=== PATIENT | male | born 1950 | race Caucasian/White ===

== ENCOUNTER 2016-05-13 20:35 | Inpatient (IN) | payer MEDICARE, OTHER ==
[2016-05-13] MEDS ORDERED: PANTOPRAZOLE 40 MG/10 ML VIAL IVP STA (21:08)
[2016-05-13] MEDS ORDERED: SODIUM CHLORIDE 0.9% 500 ML IV STA (21:08)
--- NOTE | 2016-05-13 21:13 | ED ---
General Adult HPI - General Chief complaint: Weakness Stated complaint: GI bleed Time Seen by Provider: 05/13/16 20:55 Source: patient, RN notes reviewed Mode of arrival: ambulatory Limitations: no limitations - History of Present Illness Initial comments: This is a 66-year-old male who presents to the emergency department complaining of weakness and fatigue which is increased over the last 5 days. Patient went to see his primary medical care doctor and they did a rectal exam on him and found him to be quiet positive. She is on Xarelto because he had a stent placed in his heart. Patient also has had a stroke in the past. Patient states she's not had any chest pain denies difficult to breathing but isn't short of breath on a regular basis especially if he exerts himself. Patient denies any recent fever chills or cough. Patient denies lightheadedness or dizziness. Patient denies headache patient denies numbness weakness. Patient states he has some lower abdominal cramping occasionally but no pain currently. Patient denies any vomiting or diarrhea. - Related Data Home Medications Medication Instructions Recorded Confirmed Acetaminophen-Codeine 300-30mg 1 tab PO BID PRN 07/09/14 05/13/16 [Tylenol w/codeine #3] Atenolol 100 mg PO DAILY 07/09/14 05/13/16 Ergocalciferol (Vitamin D2) 50,000 unit PO LUCAS 07/09/14 05/13/16 [Drisdol] Lisinopril 40 mg PO DAILY 07/09/14 05/13/16 Rivaroxaban [Xarelto] 20 mg PO W/SUPPER 07/09/14 05/13/16 Sildenafil Citrate [Viagra] 100 mg PO DAILY PRN 07/09/14 05/13/16 Topiramate 150 mg PO BID 07/09/14 05/13/16 metFORMIN HCL [Glucophage] 850 mg PO BID 07/09/14 05/13/16 Atorvastatin [Lipitor] 40 mg PO HS 05/13/16 05/13/16 Clopidogrel [Plavix] 75 mg PO QAM 05/13/16 05/13/16 Hydrochlorothiazide 12.5 mg PO DAILY 05/13/16 05/13/16 Previous Rx's Medication Instructions Recorded Nitroglycerin Sl Tabs [Nitrostat] 0.4 mg SUBLINGUAL Q5M PRN #25 tab 07/11/14 Allergies Allergy/AdvReac Type Severity Reaction Status Date / Time No Known Allergies Allergy Verified 05/13/16 21:26 Review of Systems ROS Statement: Those systems with pertinent positive or pertinent negative responses have been documented in the HPI. ROS Other: All systems not noted in ROS Statement are negative. Past Medical History Past Medical History: Atrial Fibrillation, CVA/TIA, Diabetes Mellitus, Hypertension, Osteoarthritis (OA), Seizure Disorder, Sleep Apnea/CPAP/BIPAP Additional Past Medical History / Comment(s): APHASIA SINCE STROKE IN , DDD, DJD HEELS SPURS, DRY SKIN,SHORT TERM MEMORY LOSS, FX NOSE AND CHEECK-BONE History of Any Multi-Drug Resistant Organisms: None Reported Past Surgical History: Heart Catheterization, Heart Catheterization With Stent Additional Past Surgical History / Comment(s): COLONSOCOPY REMOVED 1 BENIGN POLYP, RHINOPLASTY,, TORN MENISCUS ELDA KNEES, RT KNEE ARTHROSCOPY, LT SHOULDER AC JOINT Additional Past Anesthesia/Blood Transfusion Reaction / Comment(s): CLAUSTERPHOBIA Date of Last Stent Placement:: 07-10-14 Past Psychological History: No Psychological Hx Reported Additional Psychological History / Comment(s): TO START SPEECH THERAPY 07-31-14 AT [place], HAS HEARING LOSS, APHASIA Smoking Status: Former smoker Past Alcohol Use History: None Reported Additional Past Alcohol Use History / Comment(s): STARTED SMOKING AT AGE 14 QUIT 1977 SMOKED 3 PPD. Past Drug Use History: None Reported - Past Family History Father Family Medical History: Congestive Heart Failure (CHF), COPD Additional Family Medical History / Comment(s): EMPHYSEMA Mother Family Medical History: AFIB, COPD, Coronary Artery Disease (CAD), Myocardial Infarction ([place]) Additional Family Medical History / Comment(s): HEAVY SMOKER, HEART STENTS. General Exam - General Exam Comments Initial Comments: GENERAL: Patient is well-developed and well-nourished. Patient is nontoxic and well- hydrated and is in no acute distress. ENT: Neck is soft and supple. No significant lymphadenopathy is noted. Oropharynx is clear. Moist mucous membranes. Neck has full range of motion without eliciting any pain. EYES: The sclera were anicteric and conjunctiva were pink and moist. Extraocular movements were intact and pupils were equal round and reactive to light. Eyelids were unremarkable. PULMONARY: Unlabored respirations. Good breath sounds bilaterally. No audible rales rhonchi or wheezing was noted. CARDIOVASCULAR: Patient's heart rate is irregular ABDOMEN: Soft and nontender with normal bowel sounds. No palpable organomegaly was noted. There is no palpable pulsatile mass. SKIN: Patient's skin is slightly pale NEUROLOGIC: Patient is alert and oriented x3. Cranial nerves II through XII are grossly intact. Motor and sensory are also intact. Normal speech, volume and content. Symmetrical smile. MUSCULOSKELETAL: Normal extremities with adequate strength and full range of motion. LYMPHATICS: No significant lymphadenopathy is noted PSYCHIATRIC: Normal psychiatric evaluation. Normal interpersonal interactions appears functionally intact in deals appropriately with others. No signs of depression. No signs of anxiety. Limitations: no limitations Course Vital Signs 05/13/16 05/13/16 05/13/16 20:51 21:07 21:15 Temperature 97.6 F Pulse Rate 61 79 84 Respiratory 18 18 18 Rate Blood Pressure 107/62 114/59 115/58 O2 Sat by Pulse 96 98 98 Oximetry 05/13/16 05/13/16 05/13/16 22:08 22:45 23:02 Temperature Pulse Rate 84 94 84 Respiratory 18 18 18 Rate Blood Pressure 90/57 83/53 100/60 O2 Sat by Pulse 98 99 98 Oximetry Medical Decision Making - Medical Decision Making EKG shows atrial fibrillation at 95 bpm QRS is 98 QT interval 324 QTC is 47. Patient's EKG shows no ST segment elevation or depression or T-wave abdomen is noted. Patient's chest x-ray shows no acute abnormality. Patient's blood pressure dipped a little while in the emergency department gave the patient a liter of fluid and the patient's systolic blood pressure came back up. Patient states he did not eat anything but a bolus early this morning and he states he wasn't drinking any fluids today. - Lab Data Result diagrams: 05/13/16 21:10 05/13/16 21:10 Lab Results 05/13/16 05/13/16 05/13/16 Range/Units 21:10 21:10 21:10 WBC 11.1 H (3.8-10.6) k/uL RBC 5.19 (4.30-5.90) m/uL Hgb 15.6 (13.0-17.5) gm/dL Hct 49.7 (39.0-53.0) % MCV 95.7 (80.0-100.0) fL MCH 30.1 (25.0-35.0) pg MCHC 31.4 (31.0-37.0) g/dL RDW 13.3 (11.5-15.5) % Plt Count 228 (150-450) k/uL Neutrophils % 62 % Lymphocytes % 27 % Monocytes % 7 % Eosinophils % 1 % Basophils % 1 % Neutrophils # 6.8 (1.3-7.7) k/uL Lymphocytes # 3.0 (1.0-4.8) k/uL Monocytes # 0.8 (0-1.0) k/uL Eosinophils # 0.1 (0-0.7) k/uL Basophils # 0.1 (0-0.2) k/uL PT (9.0-12.0) sec INR (<1.1) APTT (22.0-30.0) sec Sodium 144 (137-145) mmol/L Potassium 4.4 (3.5-5.1) mmol/L Chloride 109 H (98-107) mmol/L Carbon Dioxide 21 L (22-30) mmol/L Anion Gap 14 mmol/L BUN 37 H (9-20) mg/dL Creatinine 1.40 H (0.66-1.25) mg/dL Est GFR (MDRD) Af Amer >60 (>60 ml/min/1.73 sqM) Est GFR (MDRD) Non-Af 50 (>60 ml/min/1.73 sqM) Glucose 70 L (74-99) mg/dL POC Glucose (mg/dL) (75-99) mg/dL POC Glu Gas Well Drilling Manager ID Calcium 9.4 (8.4-10.2) mg/dL Total Bilirubin 0.6 (0.2-1.3) mg/dL AST 21 (17-59) U/L ALT 27 (21-72) U/L Alkaline Phosphatase 62 (38-126) U/L Total Creatine Kinase 104 (55-170) U/L CK-MB (CK-2) 2.0 (0.0-2.4) ng/mL CK-MB (CK-2) Rel Index 1.9 Troponin I <0.012 (0.000-0.034) ng/mL NT-Pro-B Natriuret Pep pg/mL Total Protein 7.3 (6.3-8.2) g/dL Albumin 4.3 (3.5-5.0) g/dL Blood Type Blood Type Recheck Antibody Screen Spec Expiration Date 05/13/16 05/13/16 05/13/16 Range/Units 21:10 21:10 21:10 WBC (3.8-10.6) k/uL RBC (4.30-5.90) m/uL Hgb (13.0-17.5) gm/dL Hct (39.0-53.0) % MCV (80.0-100.0) fL MCH (25.0-35.0) pg MCHC (31.0-37.0) g/dL RDW (11.5-15.5) % Plt Count (150-450) k/uL Neutrophils % % Lymphocytes % % Monocytes % % Eosinophils % % Basophils % % Neutrophils # (1.3-7.7) k/uL Lymphocytes # (1.0-4.8) k/uL Monocytes # (0-1.0) k/uL Eosinophils # (0-0.7) k/uL Basophils # (0-0.2) k/uL PT 12.0 (9.0-12.0) sec INR 1.2 (<1.1) APTT 27.7 (22.0-30.0) sec Sodium (137-145) mmol/L Potassium (3.5-5.1) mmol/L Chloride (98-107) mmol/L Carbon Dioxide (22-30) mmol/L Anion Gap mmol/L BUN (9-20) mg/dL Creatinine (0.66-1.25) mg/dL Est GFR (MDRD) Af Amer (>60 ml/min/1.73 sqM) Est GFR (MDRD) Non-Af (>60 ml/min/1.73 sqM) Glucose (74-99) mg/dL POC Glucose (mg/dL) (75-99) mg/dL POC Glu Gas Well Drilling Manager ID Calcium (8.4-10.2) mg/dL Total Bilirubin (0.2-1.3) mg/dL AST (17-59) U/L ALT (21-72) U/L Alkaline Phosphatase (38-126) U/L Total Creatine Kinase (55-170) U/L CK-MB (CK-2) (0.0-2.4) ng/mL CK-MB (CK-2) Rel Index Troponin I (0.000-0.034) ng/mL NT-Pro-B Natriuret Pep 1480 pg/mL Total Protein (6.3-8.2) g/dL Albumin (3.5-5.0) g/dL Blood Type O Negative Blood Type Recheck No Antibody Screen NEGATIVE Spec Expiration Date 05/16/2016 - 230905/13/16 Range/Units 22:43 WBC (3.8-10.6) k/uL RBC (4.30-5.90) m/uL Hgb (13.0-17.5) gm/dL Hct (39.0-53.0) % MCV (80.0-100.0) fL MCH (25.0-35.0) pg MCHC (31.0-37.0) g/dL RDW (11.5-15.5) % Plt Count (150-450) k/uL Neutrophils % % Lymphocytes % % Monocytes % % Eosinophils % % Basophils % % Neutrophils # (1.3-7.7) k/uL Lymphocytes # (1.0-4.8) k/uL Monocytes # (0-1.0) k/uL Eosinophils # (0-0.7) k/uL Basophils # (0-0.2) k/uL PT (9.0-12.0) sec INR (<1.1) APTT (22.0-30.0) sec Sodium (137-145) mmol/L Potassium (3.5-5.1) mmol/L Chloride (98-107) mmol/L Carbon Dioxide (22-30) mmol/L Anion Gap mmol/L BUN (9-20) mg/dL Creatinine (0.66-1.25) mg/dL Est GFR (MDRD) Af Amer (>60 ml/min/1.73 sqM) Est GFR (MDRD) Non-Af (>60 ml/min/1.73 sqM) Glucose (74-99) mg/dL POC Glucose (mg/dL) 70 L (75-99) mg/dL POC Glu Gas Well Drilling Manager ID Beers, Veronica, A Calcium (8.4-10.2) mg/dL Total Bilirubin (0.2-1.3) mg/dL AST (17-59) U/L ALT (21-72) U/L Alkaline Phosphatase (38-126) U/L Total Creatine Kinase (55-170) U/L CK-MB (CK-2) (0.0-2.4) ng/mL CK-MB (CK-2) Rel Index Troponin I (0.000-0.034) ng/mL NT-Pro-B Natriuret Pep pg/mL Total Protein (6.3-8.2) g/dL Albumin (3.5-5.0) g/dL Blood Type Blood Type Recheck Antibody Screen Spec Expiration Date Disposition Clinical Impression: Generalized weakness, GI bleed Disposition: ADMITTED IP TO THIS [facility] Time of Disposition: 23:19
[2016-05-13 21:23] LABS: Basophils # (A) 0.1 k/uL (0-0.2); Basophils % (A) 1 %; CH 30.7; CHCM 32.2; Eosinophils # (A) 0.1 k/uL (0-0.7); Eosinophils % (A) 1 %; HCT 49.7 % (39.0-53.0); HDW 2.67; HGB 15.6 gm/dL (13.0-17.5); Luc % (Auto) 3; Lymphocytes % (A) 27 %; MCH 30.1 pg (25.0-35.0); MCHC 31.4 g/dL (31.0-37.0); MCV 95.7 fL (80.0-100.0); Monocytes # (A) 0.8 k/uL (0-1.0); Monocytes % (A) 7 %; Neutrophils # (A) 6.8 k/uL (1.3-7.7); Neutrophils % (A) 62 %; RBC 5.19 m/uL (4.30-5.90); RDW 13.3 % (11.5-15.5); WBC 11.1 k/uL (3.8-10.6); WBC (Perox) 10.51
[2016-05-13 21:37] LABS: ALT 27 U/L (21-72); AST 21 U/L (17-59); Alkaline Phosphatase 62 U/L (38-126); Anion Gap 14 mmol/L; Blood Urea Nitrogen 37 mg/dL (9-20); Calcium 9.4 mg/dL (8.4-10.2); Carbon Dioxide 21 mmol/L (22-30); Chloride 109 mmol/L (98-107); Glucose 70 mg/dL (74-99); Non-African American GFR(MDRD) 50 (>60 ml/min/1.73 sqM); Potassium 4.4 mmol/L (3.5-5.1); Sodium 144 mmol/L (137-145); Total Bilirubin 0.6 mg/dL (0.2-1.3); Total Protein 7.3 g/dL (6.3-8.2)
[2016-05-13 21:51] LABS: Creatine Kinase 104 U/L (55-170)
[2016-05-13 21:52] LABS: INR 1.2 (<1.1); Partial Thromboplastin Time 27.7 sec (22.0-30.0)
[2016-05-13 22:03] LABS: Troponin I <0.012 ng/mL (0.000-0.034)
--- NOTE | 2016-05-13 22:40 | XR ---
EXAMINATION TYPE: XR chest 2V DATE OF EXAM: 05/13/2016 10:23 PM COMPARISON: None. HISTORY: Difficulty in breathing weakness, hypertension history of atrial fibrillation. TECHNIQUE: Frontal and lateral views of the chest are obtained. FINDINGS: Mild atelectatic changes are suggested in both lung bases. No definite focal pneumonia, pneumothorax or pleural effusion is noted. The cardiac silhouette size is within normal limits. [id number] degenerative changes are presen t in the thoracic spine. IMPRESSION: 1. Mild atelectasis in both lung bases. 2. No active lung infiltrates or pneumonia.
[2016-05-13 22:45] LABS: Glucose,Whole Blood 70 mg/dL (75-99)
[2016-05-13] MEDS ORDERED: SODIUM CHLORIDE 0.9% 1,000 ML IV ONE (23:21)
[2016-05-14 02:06] VITALS: BMI 38.0
[2016-05-14 05:54] LABS: Glucose,Whole Blood 95 mg/dL (75-99)
[2016-05-14 08:08] LABS: Basophils % (A) 0 %; CH 30.6; CHCM 31.8; Eosinophils # (A) 0.2 k/uL (0-0.7); Eosinophils % (A) 2 %; HCT 43.1 % (39.0-53.0); HGB 13.5 gm/dL (13.0-17.5); Luc # (Auto) 0.25; Luc % (Auto) 3; Lymphocytes # (A) 2.3 k/uL (1.0-4.8); Lymphocytes % (A) 24 %; MCH 30.2 pg (25.0-35.0); MCHC 31.3 g/dL (31.0-37.0); MCV 96.6 fL (80.0-100.0); Mean Platelet Volume 7.9; Monocytes # (A) 0.5 k/uL (0-1.0); Monocytes % (A) 5 %; Neutrophils # (A) 6.5 k/uL (1.3-7.7); Neutrophils % (A) 67 %; RBC 4.46 m/uL (4.30-5.90); RDW 13.2 % (11.5-15.5); WBC 9.8 k/uL (3.8-10.6); WBC (Perox) 9.97
[2016-05-14 09:56] LABS: ALT 30 U/L (21-72); AST 23 U/L (17-59); Alkaline Phosphatase 52 U/L (38-126); Anion Gap 8 mmol/L; Blood Urea Nitrogen 33 mg/dL (9-20); Calcium 8.8 mg/dL (8.4-10.2); Carbon Dioxide 23 mmol/L (22-30); Chloride 111 mmol/L (98-107); Glucose 95 mg/dL (74-99); Non-African American GFR(MDRD) >60 (>60 ml/min/1.73 sqM); Sodium 142 mmol/L (137-145); Total Bilirubin 0.7 mg/dL (0.2-1.3); Total Protein 6.4 g/dL (6.3-8.2)
[2016-05-14 09:58] LABS: Potassium 4.7 mmol/L (3.5-5.1)
[2016-05-14] MEDS ORDERED: NITROGLYCERIN SL TABS 0.4 MG TAB SUBLINGUAL PRN (10:52)
[2016-05-14] MEDS ORDERED: Acetaminophen-Codeine 300-30mg TAB PO PRN (10:52)
[2016-05-14] MEDS ORDERED: ONDANSETRON 4 MG/2 ML VIAL IVP PRN (10:57)
[2016-05-14] MEDS ORDERED: ACETAMINOPHEN TAB 325 MG TAB PO PRN (10:57)
[2016-05-14] MEDS ORDERED: TOPIRAMATE 25 MG TAB PO SCH (11:00)
[2016-05-14 11:31] LABS: Hemoglobin A1C 6.4 % (4.2-6.1)
[2016-05-14 11:38] LABS: Glucose,Whole Blood 98 mg/dL (75-99)
[2016-05-14] MEDS: INSULIN LISPRO (humaLOG) 300 UNIT/3 ML VIAL SQ SCH ×3 (11:58→22:16)
[2016-05-14] MEDS: PANTOPRAZOLE 40 MG/10 ML VIAL IVP SCH (12:05)
--- NOTE | 2016-05-14 13:58 | P.HPIM ---
History of Present Illness H&P Date: 05/14/16 Chief Complaint: Blood per rectum This is a 66-year-old male, patient of [facility]. He has a known past medical history of atrial fibrillation, diabetes mellitus, hypertension, CVA, coronary artery disease with stent, seizure and former smoker. Patient had not been feeling well over the last couple a days have been more weak had upset stomach and went to his primary care for evaluation. Patient reports they did a rectal exam and was found to have bright red blood during the rectal exam. And was told to come to the emergency room for further evaluation. Patient reports that he is had an episode of blood per rectum a couple weeks ago. He noted when he wipes the tissue did have some red. Patient does have issues with constipation. And at that time a couple weeks ago he was having constipation and thought that he may have torn something. He did have a bowel movement yesterday reports that it was normal. He also noted that his stool was black he had been taking Pepto-Bismol for upset stomach. Patient's last colonoscopy was about 10 years ago reports having a polyp removed that was benign. He denies any fevers chills or sweats. Denies any chest pain or shortness of breath. Denies any difficulty urinating. He doesn't having some lower abdominal cramping. Consult has been placed for Dr. Mckay for possible colonoscopy. Patient also was found to have some dehydration with a creatinine of 1.40 that hydrochlorothiazide was placed on hold he was given IV fluids. Hemoglobin on admission was 15.6 has dropped down to 13.5. Review of Systems Please refer to HPI otherwise unremarkable Past Medical History Past Medical History: Atrial Fibrillation, CVA/TIA, Diabetes Mellitus, Hypertension, Osteoarthritis (OA), Seizure Disorder, Sleep Apnea/CPAP/BIPAP Additional Past Medical History / Comment(s): APHASIA SINCE STROKE IN , DDD, DJD HEELS SPURS, DRY SKIN,SHORT TERM MEMORY LOSS, FX NOSE AND CHEECK-BONE History of Any Multi-Drug Resistant Organisms: None Reported Past Surgical History: Heart Catheterization, Heart Catheterization With Stent Additional Past Surgical History / Comment(s): COLONSOCOPY REMOVED 1 BENIGN POLYP, RHINOPLASTY,, TORN MENISCUS ELDA KNEES, RT KNEE ARTHROSCOPY, LT SHOULDER AC JOINT Additional Past Anesthesia/Blood Transfusion Reaction / Comment(s): CLAUSTERPHOBIA Date of Last Stent Placement:: 07-10-14 Past Psychological History: No Psychological Hx Reported Additional Psychological History / Comment(s): HAS HEARING LOSS, APHASIA Smoking Status: Former smoker Past Alcohol Use History: None Reported Additional Past Alcohol Use History / Comment(s): STARTED SMOKING AT AGE 14 QUIT 1977 SMOKED 3 PPD. Past Drug Use History: None Reported - Past Family History Father Family Medical History: Congestive Heart Failure (CHF), COPD Additional Family Medical History / Comment(s): EMPHYSEMA Mother Family Medical History: AFIB, COPD, Coronary Artery Disease (CAD), Myocardial Infarction ([place]) Additional Family Medical History / Comment(s): HEAVY SMOKER, HEART STENTS. Medications and Allergies Home Medications Medication Instructions Recorded Confirmed Type Acetaminophen-Codeine 300-30mg 1 tab PO BID PRN 07/09/14 05/13/16 History [Tylenol w/codeine #3] Atenolol 100 mg PO DAILY 07/09/14 05/13/16 History Ergocalciferol (Vitamin D2) 50,000 unit PO LUCAS 07/09/14 05/13/16 History [Drisdol] Lisinopril 40 mg PO DAILY 07/09/14 05/13/16 History Rivaroxaban [Xarelto] 20 mg PO W/SUPPER 07/09/14 05/13/16 History Sildenafil Citrate [Viagra] 100 mg PO DAILY PRN 07/09/14 05/13/16 History Topiramate 150 mg PO BID 07/09/14 05/13/16 History metFORMIN HCL [Glucophage] 850 mg PO BID 07/09/14 05/13/16 History Atorvastatin [Lipitor] 40 mg PO HS 05/13/16 05/13/16 History Clopidogrel [Plavix] 75 mg PO QAM 05/13/16 05/13/16 History Hydrochlorothiazide 12.5 mg PO DAILY 05/13/16 05/13/16 History Allergies Allergy/AdvReac Type Severity Reaction Status Date / Time No Known Allergies Allergy Verified 05/13/16 21:26 Physical Exam Vitals: Vital Signs Temp Pulse Pulse Resp BP BP Pulse Ox 05/14/16 08:00 97.7 F 75 18 97/64 96 05/14/16 04:00 97.8 F 62 18 99/55 99 05/14/16 02:20 97.0 F L 76 18 112/64 98 05/14/16 01:44 97.0 F L 76 18 112/64 93 L 05/14/16 00:40 78 16 98/57 98 05/13/16 23:33 80 18 105/64 95 Intake and Output 05/13/16 05/14/16 05/14/16 22:59 06:59 14:59 Output Total 1350 Balance -1350 Output: Urine 1350 Other: Voiding Method Urinal Urinal # Voids 1 # Bowel Movements 1 Weight 134.3 kg Head normocephalic Neck supple Lungs clear to auscultation bilaterally no wheezing or crackles Heart regular rate and rhythm S1-S2, no rub or gallop Abdomen is soft tenderness noted in the lower abdomen positive bowel sounds nondistended Extremities no edema Neuro alert and orientated to 3 Results CBC & Chem 7: 05/14/16 07:30 05/14/16 09:35 Labs: Abnormal Lab Results - Last 24 Hours (Table) 05/14/16 Range/Units 09:35 Chloride 111 H (98-107) mmol/L BUN 33 H (9-20) mg/dL Thrombosis Risk Factor Assmnt - Choose All That Apply Each Factor Represents 1 point: Abnormal pulmonary function (COPD), Obesity ( BMI >25) Each Risk Factor Represents 2 Points: Age 61-74 years Other congenital or acquired thrombophilia - If yes, enter type in comment: Yes Thrombosis Risk Factor Assessment Total Risk Factor Score: 4 Thrombosis Risk Factor Assessment Level: Moderate Risk Assessment and Plan Plan: 1. Rectal bleeding: Positive rectal exam for blood in PCP office. Hemoglobin 15.6 did drop to 13.5. Continue to monitor. Surgical consult placed for possible colonoscopy. 2. History of CVA with aphasia continue Plavix 3. Chronic atrial fibrillation on Xarelto at home 4. Acute kidney injury: Creatinine 1.40 on admission. Hold hydrochlorothiazide. Patient did receive IV fluids in the emergency room. Continue to monitor 5. Essential hypertension with episodes of hypotension. Decrease atenolol 25 mg by mouth daily. Hold other blood pressure pills. Last blood pressure 106/ 62. 6. Diabetes mellitus type 2: Hold metformin. Add sliding scale coverage 7. History of coronary artery disease with cardiac stent GI prophylaxis Protonix and DVT prophylaxis Xarelto Time with Patient: Greater than 30 (Greater than 50% of the total time spent in counseling and coordination of care.I performed an examination of the patient and discussed their management with the physician Application Infrastructure Engineer. I have reviewed the Physician Application Infrastructure Engineer's notes and agree with the documented findings and plan of care)
--- NOTE | 2016-05-14 16:13 | P.GSCN ---
History of Present Illness Consult date: 05/14/16 Reason for Consult: GI bleed Requesting physician: Cherie Deleon History of present illness: Patient is a 66-year-old male, with medical history significant for atrial fibrillation on Xarelto. Patient presented to the emergency department with complaints of weakness and fatigue increased over the last 5 days. Patient states he was at his medical doctor who performed a rectal exam which was positive for bright red blood. Patient denies chills, fevers, nausea, vomiting, shortness of breath, chest pain, or abdominal pain. Patient does occasionally become constipated but no history of diarrhea. Last colonoscopy approximately 10 years ago with reported benign polypectomy. Hemoglobin on admission 13.5. Surgical consult requested for GI bleed. Past Medical History Past Medical History: Atrial Fibrillation, CVA/TIA, Diabetes Mellitus, Hypertension, Osteoarthritis (OA), Seizure Disorder, Sleep Apnea/CPAP/BIPAP Additional Past Medical History / Comment(s): APHASIA SINCE STROKE IN , DDD, DJD HEELS SPURS, DRY SKIN,SHORT TERM MEMORY LOSS, FX NOSE AND CHEECK-BONE History of Any Multi-Drug Resistant Organisms: None Reported Past Surgical History: Heart Catheterization, Heart Catheterization With Stent Additional Past Surgical History / Comment(s): COLONSOCOPY REMOVED 1 BENIGN POLYP, RHINOPLASTY,, TORN MENISCUS ELDA KNEES, RT KNEE ARTHROSCOPY, LT SHOULDER AC JOINT Additional Past Anesthesia/Blood Transfusion Reaction / Comm: CLAUSTERPHOBIA Date of Last Stent Placement:: 07-10-14 Past Psychological History: No Psychological Hx Reported Additional Psychological History / Comment(s): HAS HEARING LOSS, APHASIA Smoking Status: Former smoker Past Alcohol Use History: None Reported Additional Past Alcohol Use History / Comment(s): STARTED SMOKING AT AGE 14 QUIT 1977 SMOKED 3 PPD. Past Drug Use History: None Reported - Past Family History Father Family Medical History: Congestive Heart Failure (CHF), COPD Additional Family Medical History / Comment(s): EMPHYSEMA Mother Family Medical History: AFIB, COPD, Coronary Artery Disease (CAD), Myocardial Infarction ([place]) Additional Family Medical History / Comment(s): HEAVY SMOKER, HEART STENTS. Medications and Allergies Home Medications Medication Instructions Recorded Confirmed Type Acetaminophen-Codeine 300-30mg 1 tab PO BID PRN 07/09/14 05/13/16 History [Tylenol w/codeine #3] Atenolol 100 mg PO DAILY 07/09/14 05/13/16 History Ergocalciferol (Vitamin D2) 50,000 unit PO LUCAS 07/09/14 05/13/16 History [Drisdol] Lisinopril 40 mg PO DAILY 07/09/14 05/13/16 History Rivaroxaban [Xarelto] 20 mg PO W/SUPPER 07/09/14 05/13/16 History Sildenafil Citrate [Viagra] 100 mg PO DAILY PRN 07/09/14 05/13/16 History Topiramate 150 mg PO BID 07/09/14 05/13/16 History metFORMIN HCL [Glucophage] 850 mg PO BID 07/09/14 05/13/16 History Atorvastatin [Lipitor] 40 mg PO HS 05/13/16 05/13/16 History Clopidogrel [Plavix] 75 mg PO QAM 05/13/16 05/13/16 History Hydrochlorothiazide 12.5 mg PO DAILY 05/13/16 05/13/16 History Allergies Allergy/AdvReac Type Severity Reaction Status Date / Time No Known Allergies Allergy Verified 05/13/16 21:26 Surgical - Exam Vital Signs Temp Pulse Resp BP Pulse Ox 97.6 F 61 18 107/62 96 05/13/16 20:51 05/13/16 20:51 05/13/16 20:51 05/13/16 20:51 05/13/16 20:51 GENERAL: Pt awake and alert, well-appearing, well-nourished, and in no acute distress. HEAD: Atraumatic, normocephalic. EYES: Pupils equal and round. Sclera anicteric, conjunctiva are normal. ENT: Moist mucous membranes. LUNGS: Breath sounds clear to auscultation bilaterally. No wheezes, rales, or rhonchi. HEART: Heart S1, S2, no S3 or S4. Regular rate and rhythm. No murmurs, rubs or gallops. ABDOMEN: Soft, obese, nontender, nondistended, normoactive bowel sounds. No guarding, no rebound. No masses or organomegaly appreciated. NEUROLOGICAL: Pt oriented x 3. Results - Labs 05/14/16 07:30 05/14/16 09:35 Abnormal Lab Results - Last 24 Hours (Table) 05/14/16 05/14/16 Range/Units 09:35 09:35 Chloride 111 H (98-107) mmol/L BUN 33 H (9-20) mg/dL Hemoglobin A1c 6.4 H (4.2-6.1) % Diabetes panel 05/14/16 05/14/16 Range/Units 09:35 09:35 Sodium 142 (137-145) mmol/L Potassium 4.7 (3.5-5.1) mmol/L Chloride 111 H (98-107) mmol/L Carbon Dioxide 23 (22-30) mmol/L BUN 33 H (9-20) mg/dL Creatinine 1.20 (0.66-1.25) mg/dL Glucose 95 (74-99) mg/dL Hemoglobin A1c 6.4 H (4.2-6.1) % Calcium 8.8 (8.4-10.2) mg/dL AST 23 (17-59) U/L ALT 30 (21-72) U/L Alkaline Phosphatase 52 (38-126) U/L Total Protein 6.4 (6.3-8.2) g/dL Albumin 3.5 (3.5-5.0) g/dL Calcium panel 05/14/16 Range/Units 09:35 Calcium 8.8 (8.4-10.2) mg/dL Albumin 3.5 (3.5-5.0) g/dL Pituitary panel 05/14/16 Range/Units 09:35 Sodium 142 (137-145) mmol/L Potassium 4.7 (3.5-5.1) mmol/L Chloride 111 H (98-107) mmol/L Carbon Dioxide 23 (22-30) mmol/L BUN 33 H (9-20) mg/dL Creatinine 1.20 (0.66-1.25) mg/dL Glucose 95 (74-99) mg/dL Calcium 8.8 (8.4-10.2) mg/dL Adrenal panel 05/14/16 Range/Units 09:35 Sodium 142 (137-145) mmol/L Potassium 4.7 (3.5-5.1) mmol/L Chloride 111 H (98-107) mmol/L Carbon Dioxide 23 (22-30) mmol/L BUN 33 H (9-20) mg/dL Creatinine 1.20 (0.66-1.25) mg/dL Glucose 95 (74-99) mg/dL Calcium 8.8 (8.4-10.2) mg/dL Total Bilirubin 0.7 (0.2-1.3) mg/dL AST 23 (17-59) U/L ALT 30 (21-72) U/L Alkaline Phosphatase 52 (38-126) U/L Total Protein 6.4 (6.3-8.2) g/dL Albumin 3.5 (3.5-5.0) g/dL - Imaging Chest x-ray: report reviewed (Mild atelectasis in both lung bases) Assessment and Plan Plan: Impression: 1. GI bleed 2. Atrial fibrillation on Xarelto for anticoagulation Plan: Patient will undergo EGD and colonoscopy on Tuesday. Patient will start bowel prep on Tuesday and be nothing by mouth after midnight. We will feed patient but start clear liquid diet on Tuesday. Continue to monitor hemoglobin and overt signs of bleeding. Continue follow medical team. The above impression and plan have been discussed and directed by Dr. Espinal. Pascual ISAAC acting as scribe for Dr. Espinal.
[2016-05-14 17:06] LABS: Glucose,Whole Blood 128 mg/dL (75-99)
[2016-05-14] MEDS ORDERED: RIVAROXABAN 10 MG TAB PO SCH (17:30)
[2016-05-14 21:48] LABS: Glucose,Whole Blood 122 mg/dL (75-99)
[2016-05-14] MEDS: TOPIRAMATE 25 MG TAB PO SCH (21:58)
[2016-05-14] MEDS: ATORVASTATIN 40 MG TAB PO SCH (21:58)
[2016-05-14] MEDS: TOPIRAMATE 100 MG TAB PO SCH (21:58)
[2016-05-15 07:08] LABS: Glucose,Whole Blood 95 mg/dL (75-99)
[2016-05-15] MEDS: INSULIN LISPRO (humaLOG) 300 UNIT/3 ML VIAL SQ SCH ×4 (08:45→22:16)
[2016-05-15] MEDS: PANTOPRAZOLE 40 MG/10 ML VIAL IVP SCH (08:48)
[2016-05-15] MEDS: TOPIRAMATE 25 MG TAB PO SCH ×2 (08:48→22:15)
[2016-05-15] MEDS: ATENOLOL 25 MG TAB PO SCH (08:48)
[2016-05-15] MEDS: TOPIRAMATE 100 MG TAB PO SCH ×2 (08:48→22:15)
[2016-05-15] MEDS ORDERED: CLOPIDOGREL 75 MG TAB PO SCH (09:00)
[2016-05-15 09:12] LABS: Basophils # (A) 0.1 k/uL (0-0.2); Basophils % (A) 1 %; CH 30.7; Eosinophils # (A) 0.2 k/uL (0-0.7); Eosinophils % (A) 2 %; HCT 42.7 % (39.0-53.0); HDW 2.61; HGB 13.6 gm/dL (13.0-17.5); Luc # (Auto) 0.22; Luc % (Auto) 3; Lymphocytes # (A) 1.8 k/uL (1.0-4.8); Lymphocytes % (A) 23 %; MCH 30.5 pg (25.0-35.0); MCHC 31.8 g/dL (31.0-37.0); MCV 96.2 fL (80.0-100.0); Mean Platelet Volume 8.3; Monocytes # (A) 0.4 k/uL (0-1.0); Monocytes % (A) 5 %; Neutrophils # (A) 5.4 k/uL (1.3-7.7); Neutrophils % (A) 67 %; RBC 4.44 m/uL (4.30-5.90); WBC 8.1 k/uL (3.8-10.6); WBC (Perox) 9.03
[2016-05-15 09:31] LABS: ALT 31 U/L (21-72); AST 17 U/L (17-59); Alkaline Phosphatase 65 U/L (38-126); Anion Gap 9 mmol/L; Blood Urea Nitrogen 21 mg/dL (9-20); Calcium 9.1 mg/dL (8.4-10.2); Carbon Dioxide 24 mmol/L (22-30); Chloride 110 mmol/L (98-107); Glucose 103 mg/dL (74-99); Non-African American GFR(MDRD) >60 (>60 ml/min/1.73 sqM); Potassium 4.5 mmol/L (3.5-5.1); Sodium 143 mmol/L (137-145); Total Bilirubin 0.5 mg/dL (0.2-1.3); Total Protein 6.5 g/dL (6.3-8.2)
[2016-05-15 12:12] LABS: Glucose,Whole Blood 154 mg/dL (75-99)
--- NOTE | 2016-05-15 12:29 | P.PN ---
Progress Note - Text The patient remained stable. His hemoglobin is stable in the 13 range. On exam vitals are stable. Abdomen soft. Patient be scheduled for EGD colonoscopy on Tuesday.
--- NOTE | 2016-05-15 13:31 | P.PN ---
Subjective Patient is doing well today. He had 2 episodes of black stool since admission. No abdominal pain. No nausea or vomiting. Tolerating food okay. Objective - Vital Signs Vital signs: Vital Signs Temp 97.9 F 05/15/16 07:00 Pulse 85 05/15/16 07:00 Resp 16 05/15/16 07:00 BP 126/73 05/15/16 07:00 Pulse Ox 94 L 05/15/16 07:00 Intake & Output 05/14/16 05/15/16 05/15/16 18:59 06:59 18:59 Intake Total 150 Output Total 1750 Balance -1750 150 Weight 134.3 kg 132.5 kg Intake: Oral 150 Output: Urine 1750 Other: Voiding Method Urinal Toilet Urinal # Voids 1 1 # Bowel Movements 1 1 - Exam General: The patient is awake and alert, in no distress Eye: there is normal conjunctiva bilaterally. Neck: The neck is supple, there is no JVD. Cardiovascular: Normal S1-S2, no S3-S4, no murmurs. Respiratory: Lungs clear to auscultation bilaterally Gastrointestinal: Abdomen is soft, nontender Musculoskeletal: There is no pedal edema. Neurological:. Speech is normal. Skin: Skin is warm and dry - Labs CBC & Chem 7: 05/15/16 08:51 05/15/16 08:51 Labs: Abnormal Lab Results - Last 24 Hours (Table) 05/14/16 05/14/16 05/15/16 Range/Units 17:04 21:36 08:51 Chloride 110 H (98-107) mmol/L BUN 21 H (9-20) mg/dL Glucose 103 H (74-99) mg/dL POC Glucose (mg/dL) 128 H 122 H (75-99) mg/dL 05/15/16 Range/Units 12:10 Chloride (98-107) mmol/L BUN (9-20) mg/dL Glucose (74-99) mg/dL POC Glucose (mg/dL) 154 H (75-99) mg/dL Assessment and Plan Plan: 1. GI bleed: With melena and Positive rectal exam for blood in PCP office. Hemoglobin relatively stable. Continue to monitor. Seen and evaluated by surgery. Plan for EGD and colonoscopy on Tuesday. 2. History of CVA with aphasia on at home currently on home Plavix 3. Chronic atrial fibrillation on Xarelto at homeCurrently on hold 4. Acute kidney injury: Creatinine 1.40 on admission. Most likely prerenal. Resolved with IV fluid hydration. Continue to hold hydrochlorothiazide as blood pressure within acceptable range 5. Essential hypertension with episodes of hypotension. Decrease atenolol to 25 mg by mouth daily. Hold other blood pressure pills. Last blood pressure 106 /62. 6. Diabetes mellitus type 2: Hold metformin. Add sliding scale coverage 7. History of coronary artery disease with cardiac stent
[2016-05-15 17:00] LABS: Glucose,Whole Blood 112 mg/dL (75-99)
[2016-05-15 21:41] LABS: Glucose,Whole Blood 127 mg/dL (75-99)
[2016-05-15] MEDS: ATORVASTATIN 40 MG TAB PO SCH (22:15)
[2016-05-16 07:52] LABS: Glucose,Whole Blood 98 mg/dL (75-99)
[2016-05-16] MEDS: TOPIRAMATE 25 MG TAB PO SCH ×2 (08:43→21:39)
[2016-05-16] MEDS: INSULIN LISPRO (humaLOG) 300 UNIT/3 ML VIAL SQ SCH ×4 (08:43→21:39)
[2016-05-16] MEDS: TOPIRAMATE 100 MG TAB PO SCH ×2 (08:43→21:39)
[2016-05-16] MEDS: PANTOPRAZOLE 40 MG/10 ML VIAL IVP SCH (08:43)
[2016-05-16] MEDS: ATENOLOL 25 MG TAB PO SCH (08:43)
[2016-05-16 08:44] LABS: Basophils % (A) 0 %; CH 30.7; CHCM 31.9; Eosinophils # (A) 0.1 k/uL (0-0.7); Eosinophils % (A) 1 %; HCT 46.2 % (39.0-53.0); HDW 2.64; HGB 14.8 gm/dL (13.0-17.5); Luc # (Auto) 0.18; Luc % (Auto) 2; Lymphocytes % (A) 23 %; MCH 30.9 pg (25.0-35.0); MCV 96.7 fL (80.0-100.0); Mean Platelet Volume 8.3; Monocytes # (A) 0.5 k/uL (0-1.0); Monocytes % (A) 5 %; Neutrophils # (A) 6.2 k/uL (1.3-7.7); Neutrophils % (A) 69 %; RBC 4.78 m/uL (4.30-5.90); RDW 13.3 % (11.5-15.5); WBC (Perox) 9.31
[2016-05-16 08:53] LABS: ALT 36 U/L (21-72); AST 20 U/L (17-59); Alkaline Phosphatase 73 U/L (38-126); Anion Gap 12 mmol/L; Blood Urea Nitrogen 15 mg/dL (9-20); Calcium 9.2 mg/dL (8.4-10.2); Carbon Dioxide 24 mmol/L (22-30); Chloride 108 mmol/L (98-107); Glucose 111 mg/dL (74-99); Non-African American GFR(MDRD) >60 (>60 ml/min/1.73 sqM); Potassium 4.2 mmol/L (3.5-5.1); Sodium 144 mmol/L (137-145); Total Bilirubin 0.5 mg/dL (0.2-1.3); Total Protein 7.4 g/dL (6.3-8.2)
[2016-05-16] MEDS ORDERED: ERGOCALCIFEROL 50,000 UNIT CAP PO SCH ×2 (10:52→21:00)
[2016-05-16] MEDS ORDERED: PEG 3350-NA SULF,BICARB,CL/KCL 4,000 ML BOTTLE PO ONE (11:00)
--- NOTE | 2016-05-16 11:25 | P.PN ---
Progress Note - Text The patient is sleeping completed bed. He denies a significant GI complaints. On exam his vital signs are stable. His abdomen soft. Patient will undergo EGD colonoscopy in a.m.
[2016-05-16 12:20] LABS: Glucose,Whole Blood 98 mg/dL (75-99)
--- NOTE | 2016-05-16 13:55 | P.PN ---
Subjective Patient is doing well today. No abdominal pain. No nausea or vomiting. Objective - Vital Signs Vital signs: Vital Signs Temp 98.1 F 05/16/16 07:00 Pulse 63 05/16/16 07:00 Resp 20 05/16/16 07:00 BP 110/67 05/16/16 07:00 Pulse Ox 97 05/16/16 07:00 Intake & Output 05/15/16 05/16/16 05/16/16 18:59 06:59 18:59 Intake Total 100 320 Balance 100 320 Weight 132 kg Intake: Oral 100 320 Other: # Voids 1 # Bowel Movements 0 - Exam General: The patient is awake and alert, in no distress Eye: there is normal conjunctiva bilaterally. Neck: The neck is supple, there is no JVD. Cardiovascular: Normal S1-S2, no S3-S4, no murmurs. Respiratory: Lungs clear to auscultation bilaterally Gastrointestinal: Abdomen is soft, nontender Musculoskeletal: There is no pedal edema. Neurological:. Speech is normal. Skin: Skin is warm and dry - Labs CBC & Chem 7: 05/16/16 07:59 05/16/16 07:59 Labs: Abnormal Lab Results - Last 24 Hours (Table) 05/15/16 05/15/16 05/16/16 Range/Units 16:59 21:12 07:59 Chloride 108 H (98-107) mmol/L Glucose 111 H (74-99) mg/dL POC Glucose (mg/dL) 112 H 127 H (75-99) mg/dL Assessment and Plan Plan: 1. GI bleed: With melena and Positive rectal exam for blood in PCP office. Hemoglobin relatively stable. Continue to monitor. Seen and evaluated by surgery. Plan for EGD and colonoscopy on Tuesday. 2. History of CVA with aphasia on at home currently on home Plavix 3. Chronic atrial fibrillation on Xarelto at homeCurrently on hold 4. Acute kidney injury: Creatinine 1.40 on admission. Most likely prerenal. Resolved with IV fluid hydration. Continue to hold hydrochlorothiazide as blood pressure within acceptable range 5. Essential hypertension with episodes of hypotension. Decrease atenolol to 25 mg by mouth daily. Hold other blood pressure pills. Last blood pressure 106 /62. 6. Diabetes mellitus type 2: Hold metformin. Add sliding scale coverage 7. History of coronary artery disease with cardiac stent
[2016-05-16 17:27] LABS: Glucose,Whole Blood 100 mg/dL (75-99)
[2016-05-16 21:06] LABS: Glucose,Whole Blood 107 mg/dL (75-99)
[2016-05-16] MEDS: ATORVASTATIN 40 MG TAB PO SCH (21:38)
[2016-05-17 00:57] VITALS: RESP 18
[2016-05-17 07:25] LABS: Glucose,Whole Blood 92 mg/dL (75-99)
[2016-05-17 07:49] VITALS: TEMP 98
[2016-05-17 07:51] LABS: Basophils # (A) 0.1 k/uL (0-0.2); Basophils % (A) 1 %; CH 31.3; CHCM 32.7; Eosinophils # (A) 0.2 k/uL (0-0.7); Eosinophils % (A) 2 %; HCT 41.4 % (39.0-53.0); HDW 2.64; HGB 13.3 gm/dL (13.0-17.5); Luc # (Auto) 0.13; Luc % (Auto) 1; Lymphocytes # (A) 2.3 k/uL (1.0-4.8); Lymphocytes % (A) 25 %; MCH 30.9 pg (25.0-35.0); MCHC 32.2 g/dL (31.0-37.0); MCV 96.1 fL (80.0-100.0); Mean Platelet Volume 8.9; Monocytes # (A) 0.5 k/uL (0-1.0); Monocytes % (A) 5 %; Neutrophils # (A) 6.1 k/uL (1.3-7.7); Neutrophils % (A) 67 %; RBC 4.31 m/uL (4.30-5.90); RDW 13.3 % (11.5-15.5); WBC 9.2 k/uL (3.8-10.6); WBC (Perox) 9.22
[2016-05-17 07:58] LABS: ALT 35 U/L (21-72); AST 20 U/L (17-59); Alkaline Phosphatase 74 U/L (38-126); Anion Gap 9 mmol/L; Blood Urea Nitrogen 11 mg/dL (9-20); Calcium 8.8 mg/dL (8.4-10.2); Carbon Dioxide 22 mmol/L (22-30); Chloride 111 mmol/L (98-107); Glucose 95 mg/dL (74-99); Non-African American GFR(MDRD) >60 (>60 ml/min/1.73 sqM); Potassium 4.1 mmol/L (3.5-5.1); Sodium 142 mmol/L (137-145); Total Bilirubin 0.6 mg/dL (0.2-1.3); Total Protein 6.5 g/dL (6.3-8.2)
[2016-05-17] MEDS: TOPIRAMATE 100 MG TAB PO SCH (08:39)
[2016-05-17] MEDS: TOPIRAMATE 25 MG TAB PO SCH (08:39)
[2016-05-17] MEDS: PANTOPRAZOLE 40 MG/10 ML VIAL IVP SCH (08:39)
[2016-05-17] MEDS: ATENOLOL 25 MG TAB PO SCH (08:39)
[2016-05-17] MEDS: INSULIN LISPRO (humaLOG) 300 UNIT/3 ML VIAL SQ SCH ×2 (08:42→13:18)
[2016-05-17 10:26] VITALS: BP 105/77; PULSE 75
[2016-05-17] MEDS ORDERED: PROPOFOL 10 MG/ML 20 ML VIAL IV ONE (11:55)
[2016-05-17 11:56] LABS: Glucose,Whole Blood 119 mg/dL (75-99)
[2016-05-17] MEDS ORDERED: IV FLUID CONTINUATION 1,000 ML IV ONE (11:59)
--- NOTE | 2016-05-17 12:33 | P.OP ---
Date of Procedure: 05/17/16 Preoperative Diagnosis: GI bleed Postoperative Diagnosis: Antral gastritis Small hilar hernia Hemorrhoids Procedure(s) Performed: EGD Colonoscopy Anesthesia: MAC Surgeon: Ranjit Espinal Pathology: other (Antrum) Condition: stable Disposition: PACU Description of Procedure: The patient's placed on the endoscopy table in the lateral position. He received IV sedation. The gastroscope some placed oropharynx passed into the esophagus and into the stomach. The scope was then placed through the pylorus. The first and second portion of the duodenum. Normal. Scope was then brought back and the antrum and this appeared minimally inflamed. A biopsies performed. The scope was then retroflexed and the remainder of the stomach appeared normal. There was a small hiatal hernia. The GE junction was at 39 cm. There is no significant esophagitis. The proximal esophagus appeared normal. Scope was withdrawn for patient. Next digital rectal exam was performed which revealed internal and external hemorrhoids. The flexible colonoscope was then placed patient anus passed throughout the entire colon. The ileocecal valve was visually's. Cecum, ascending and transverse colon appeared normal. In the descending and sigmoid colon there was a few scattered diverticula. Scope was then brought back the rectum and this appeared normal. Scope was withdrawn from anus and there is minimal internal and external hemorrhoids noted. There is no evidence of GI bleed.
--- NOTE | 2016-05-17 15:41 | P.DS ---
Providers Date of admission: 05/13/16 23:21 Expected date of discharge: 05/17/16 Attending physician: Pennie Lott Consults: 05/14/16 10:35 Consult Physician Routine Consulting Provider: Ranjit Espinal Consult Reason/Comments: rectal bleeding Do you want consulting provider notified?: Yes Primary care physician: Karuna Melvin [facility] Course: Discharge diagnosis 1. GI bleed: Possibly secondary to hemorrhoids. With melena and Positive rectal exam for blood in PCP office. Hemoglobin relatively stable. Continue to monitor. Seen and evaluated by surgery. Status post EGD revealing antral gastritis small hiatal hernia and hemorrhoids. No further episodes of rectal bleeding. Hemoglobin stable at 13.3 2. History of CVA with aphasia on at home currently on home Plavix 3. Chronic atrial fibrillation on Xarelto 4. Acute kidney injury: Creatinine 1.40 on admission. Most likely prerenal. Resolved with IV fluid hydration. Continue to hold hydrochlorothiazide as blood pressure within acceptable range 5. Essential hypertension with episodes of hypotension. Blood pressure medications adjusted. Hydrochlorothiazide discontinued. Lisinopril decreased to 10 mg daily and hold for SBP< 120. Continue atenolol 100 mg daily 6. Diabetes mellitus type 2: Hold metformin. Add sliding scale coverage 7. History of coronary artery disease with cardiac stent Hospital course This is a 66-year-old male, patient of [facility]. He has a known past medical history of atrial fibrillation, diabetes mellitus, hypertension, CVA, coronary artery disease with stent, seizure and former smoker. Patient had not been feeling well over the last couple a days have been more weak had upset stomach and went to his primary care for evaluation. Patient reports they did a rectal exam and was found to have bright red blood during the rectal exam. And was told to come to the emergency room for further evaluation. Patient's hemoglobin remained stable. He was seen by Dr. Mckay and underwent EGD and colonoscopy. Results showed antral gastritis, small hiatal hernia and hemorrhoids. There were no evidence of bleeding. Patient will be placed on omeprazole for the gastritis. Patient also is having hypotension blood pressure medications were adjusted during this admission. He also had acute kidney injury creatinine has improved to 1.13. HIDA chlorothiazide remains discontinued until he is seen by his PCP. We'll decrease the lisinopril to 10 mg daily and to hold for systolic blood pressure less than 120. He can continue the atenolol 100 mg daily. He is to record his BP daily. Patient will be taking those results to Dr. Young and Dr. Melvin for further recommendations. Patient is medically stable for discharge. He can resume his Xarelto and Plavix. Please refer to chart for any further details. Blood pressure at time of discharge is 105/77. Patient Condition at Discharge: Stable Plan - Discharge Summary New Discharge Prescriptions: Lisinopril [Prinivil] 10 mg PO DAILY #30 tab Omeprazole 20 mg PO DAILY #30 cap Discharge Medication List Acetaminophen-Codeine 300-30mg [Tylenol w/codeine #3] 1 tab PO BID PRN 07/09/14 [History] Atenolol 100 mg PO DAILY 07/09/14 [History] Ergocalciferol (Vitamin D2) [Drisdol] 50,000 unit PO LUCAS 07/09/14 [History] Rivaroxaban [Xarelto] 20 mg PO W/SUPPER 07/09/14 [History] Sildenafil Citrate [Viagra] 100 mg PO DAILY PRN 07/09/14 [History] Topiramate 150 mg PO BID 07/09/14 [History] metFORMIN HCL [Glucophage] 850 mg PO BID 07/09/14 [History] Nitroglycerin Sl Tabs [Nitrostat] 0.4 mg SUBLINGUAL Q5M PRN #25 tab 07/11/14 [Rx ] Atorvastatin [Lipitor] 40 mg PO HS 05/13/16 [History] Clopidogrel [Plavix] 75 mg PO QAM 05/13/16 [History] Lisinopril [Prinivil] 10 mg PO DAILY #30 tab 05/17/16 [Rx] Omeprazole 20 mg PO DAILY #30 cap 05/17/16 [Rx] Follow up Appointment(s)/Referral(s): Sara Young MD [STAFF PHYSICIAN] - 1 Week Karuna Melvin DO [Primary Care Provider] - 05/24/16 10:15 am Patient Instructions/Handouts: Type 2 Diabetes in Adults (DC) Activity/Diet/Wound Care/Special Instructions: Diet: cardiac, diabetic Activity: as tolerated Discharge Disposition: HOME SELF-CARE
== END 2016-05-17 15:51 | disposition home or self-care (01) | DRG 394 ==
LOC: EC 20:35 → 6SEL 23:21 → 4MS4W 05-14 15:06
PROVIDERS: ADMIT Internal Medicine; ATTEND Internal Medicine
PROC: 0DB68ZX Excision of Stomach, Via Natural or Artificial Opening Endoscopic, Diagnostic (ICD-10-PCS; principal; 2016-05-17 07:30)
PROC: 0DJD8ZZ Inspection of Lower Intestinal Tract, Via Natural or Artificial Opening Endoscopic (ICD-10-PCS; 2016-05-17 07:30)
DX: K64.5 Perianal venous thrombosis (principal); N17.9 Acute kidney failure, unspecified; I95.9 Hypotension, unspecified; I48.2 Chronic atrial fibrillation; I69.320 Aphasia following cerebral infarction; E11.9 Type 2 diabetes mellitus without complications; I10 Essential (primary) hypertension; I25.10 Atherosclerotic heart disease of native coronary artery without angina pectoris; E86.0 Dehydration; K29.60 Other gastritis without bleeding; K44.9 Diaphragmatic hernia without obstruction or gangrene; K59.00 Constipation, unspecified; M19.90 Unspecified osteoarthritis, unspecified site; H91.90 Unspecified hearing loss, unspecified ear; G47.30 Sleep apnea, unspecified; G40.909 Epilepsy, unspecified, not intractable, without status epilepticus; K30 Functional dyspepsia; Z95.5 Presence of coronary angioplasty implant and graft; Z87.891 Personal history of nicotine dependence; Z79.01 Long term (current) use of anticoagulants; Z79.02 Long term (current) use of antithrombotics/antiplatelets; Z79.84 Long term (current) use of oral hypoglycemic drugs; Z79.899 Other long term (current) drug therapy
CPT/HCPCS: 36415; 43239; 71020; 80053; 82550; 82553; 83036; 83880; 84484; 85025; 85610; 85730; 86850; 86900; 86901; 88305; 88342; 93005; 96361; 96374; 99153; 99285

== ENCOUNTER → 2016-05-26 | Outpatient (CLI) | payer MEDICARE, OTHER ==
[2016-05-26 13:28] LABS: ALT 42 U/L (21-72); AST 21 U/L (17-59); Alkaline Phosphatase 73 U/L (38-126); Anion Gap 10 mmol/L; Blood Urea Nitrogen 12 mg/dL (9-20); Calcium 8.6 mg/dL (8.4-10.2); Carbon Dioxide 23 mmol/L (22-30); Chloride 110 mmol/L (98-107); Cholesterol 64 mg/dL (<200); Glucose 97 mg/dL (74-99); HDL Cholesterol 43 mg/dL (40-60); Non-African American GFR(MDRD) >60 (>60 ml/min/1.73 sqM); Potassium 4.7 mmol/L (3.5-5.1); Sodium 143 mmol/L (137-145); Total Bilirubin 0.7 mg/dL (0.2-1.3); Total Protein 6.6 g/dL (6.3-8.2); Triglycerides 63 mg/dL (<150)
== END | disposition home or self-care (01) ==
LOC: LABWHC1 12:16
PROVIDERS: ATTEND Internal Medicine Interventional Cardiology
DX: E78.2 Mixed hyperlipidemia (principal)
CPT/HCPCS: 36415; 80053; 80061

== ENCOUNTER 2017-04-15 16:07 | Emergency (ER) | payer MEDICARE, OTHER ==
[2017-04-15 16:26] VITALS: TEMP 97.9
--- NOTE | 2017-04-15 17:10 | ED ---
General Adult HPI - General Chief complaint: Extremity Problem,Nontraumatic Stated complaint: A FIB Time Seen by Provider: 04/15/17 16:59 Source: patient, family, RN notes reviewed Mode of arrival: ambulatory Limitations: no limitations - History of Present Illness Initial comments: This a 67-year-old male presents emergency Department with chief complaint of bilateral lower extremity swelling. Patient states has been present for 1 week states he went to the [place] [facility] yesterday and prescribed him Lasix 20 mg in which she started today. He states that symptoms actually improved though his is still concerned about his symptoms and felt that he needed to come emergency department. Patient states he has known A. fib but has no history of CHF. Patient does admit to some intermittent shortness of breath. He states he has no current chest pain he does take Xarelto for his A. fib. Patient denies fever, chills. He states he is very fatigued does not have his normal energy. Patient states he does have some discoloration to his lower legs and feet region though this has been present for a while. He denies any paresthesias. - Related Data Home Medications Medication Instructions Recorded Confirmed Acetaminophen-Codeine 300-30mg 1 tab PO BID PRN 07/09/14 04/15/17 [Tylenol w/codeine #3] Atenolol 100 mg PO HS 07/09/14 04/15/17 Rivaroxaban [Xarelto] 20 mg PO W/SUPPER 07/09/14 04/15/17 Sildenafil Citrate [Viagra] 100 mg PO DAILY PRN 07/09/14 04/15/17 Topiramate 150 mg PO BID 07/09/14 04/15/17 metFORMIN HCL [Glucophage] 850 mg PO BID 07/09/14 04/15/17 Clopidogrel [Plavix] 75 mg PO QAM 05/13/16 04/15/17 Acetaminophen [Tylenol Extra 1,000 mg PO BID 04/15/17 04/15/17 Strength] Ascorbic Acid [Vitamin C] 500 mg PO HS 04/15/17 04/15/17 Atorvastatin [Lipitor] 10 mg PO HS 04/15/17 04/15/17 Cholecalciferol (Vitamin D3) 2,000 unit PO HS 04/15/17 04/15/17 [Vitamin D3] Ferrous Sulfate [Feosol] 325 mg PO HS 04/15/17 04/15/17 Furosemide [Lasix] 20 mg PO DAILY 04/15/17 04/15/17 Lisinopril [Zestril] 20 mg PO DAILY 04/15/17 04/15/17 Previous Rx's Medication Instructions Recorded Omeprazole 20 mg PO DAILY #30 cap 05/17/16 Allergies Allergy/AdvReac Type Severity Reaction Status Date / Time No Known Allergies Allergy Verified 04/15/17 17:12 Review of Systems ROS Statement: Those systems with pertinent positive or pertinent negative responses have been documented in the HPI. ROS Other: All systems not noted in ROS Statement are negative. Past Medical History Past Medical History: Atrial Fibrillation, Heart Failure, CVA/TIA, Diabetes Mellitus, GERD/Reflux, Hypertension, Osteoarthritis (OA), Seizure Disorder, Sleep Apnea/CPAP/BIPAP Additional Past Medical History / Comment(s): APHASIA SINCE STROKE IN , DDD, DJD HEELS SPURS, DRY SKIN,SHORT TERM MEMORY LOSS, FX NOSE AND CHEECK-BONE History of Any Multi-Drug Resistant Organisms: None Reported Past Surgical History: Heart Catheterization, Heart Catheterization With Stent Additional Past Surgical History / Comment(s): COLONSOCOPY REMOVED 1 BENIGN POLYP, RHINOPLASTY,, TORN MENISCUS ELDA KNEES, RT KNEE ARTHROSCOPY, LT SHOULDER AC JOINT Additional Past Anesthesia/Blood Transfusion Reaction / Comment(s): CLAUSTERPHOBIA Date of Last Stent Placement:: 07-10-14 Past Psychological History: No Psychological Hx Reported Smoking Status: Former smoker Past Alcohol Use History: None Reported Past Drug Use History: None Reported - Past Family History Father Family Medical History: Congestive Heart Failure (CHF), COPD Additional Family Medical History / Comment(s): EMPHYSEMA Mother Family Medical History: AFIB, COPD, Coronary Artery Disease (CAD), Myocardial Infarction ([place]) Additional Family Medical History / Comment(s): HEAVY SMOKER, HEART STENTS. General Exam Limitations: no limitations General appearance: alert, in no apparent distress Head exam: Present: atraumatic, normocephalic, normal inspection Respiratory exam: Present: normal lung sounds bilaterally. Absent: respiratory distress, wheezes, rales, rhonchi, stridor Cardiovascular Exam: Present: regular rate, normal rhythm, normal heart sounds. Absent: systolic murmur, diastolic murmur, rubs, gallop, clicks Extremities exam: Present: pedal edema (1+), other (Pedal pulses equal bilaterally, there is some venous stasis changes evidence of vascular disease) Neurological exam: Present: alert, oriented X3, CN II-XII intact, reflexes normal. Absent: motor sensory deficit Skin exam: Present: warm, dry, intact, normal color. Absent: rash Course Vital Signs 04/15/17 16:21 Temperature 97.9 F Pulse Rate 73 Respiratory 20 Rate Blood Pressure 157/89 O2 Sat by Pulse 97 Oximetry EKG Findings - EKG Comments: EKG Findings:: EKG performed at 18:45 A. fib with a rate of 81 QRS 102 QT/QTC 398/462 Medical Decision Making - Medical Decision Making 67-year-old male present emergency from for bilateral lower extremity swelling. Patient's symptoms are very mild improvement per patient and family after 1 dose of Lasix today. Patient chest x-ray shows some mild CHF. Patient's BNP is elevated just over 3000. Patient was offered admission they states he feels okay to go home at this time will follow palpation continue Lasix return for any worsening symptoms. - Lab Data Result diagrams: 04/15/17 17:39 04/15/17 17:39 Lab Results 04/15/17 04/15/17 04/15/17 Range/Units 17:39 17:39 17:39 WBC 7.2 (3.8-10.6) k/uL RBC 4.85 (4.30-5.90) m/uL Hgb 14.4 (13.0-17.5) gm/dL Hct 46.7 (39.0-53.0) % MCV 96.4 (80.0-100.0) fL MCH 29.7 (25.0-35.0) pg MCHC 30.8 L (31.0-37.0) g/dL RDW 15.0 (11.5-15.5) % Plt Count 155 (150-450) k/uL Neutrophils % 67 % Lymphocytes % 22 % Monocytes % 6 % Eosinophils % 3 % Basophils % 1 % Neutrophils # 4.8 (1.3-7.7) k/uL Lymphocytes # 1.6 (1.0-4.8) k/uL Monocytes # 0.4 (0-1.0) k/uL Eosinophils # 0.2 (0-0.7) k/uL Basophils # 0.1 (0-0.2) k/uL Hypochromasia Slight Sodium 143 (137-145) mmol/L Potassium 3.9 (3.5-5.1) mmol/L Chloride 108 H (98-107) mmol/L Carbon Dioxide 25 (22-30) mmol/L Anion Gap 10 mmol/L BUN 16 (9-20) mg/dL Creatinine 1.07 (0.66-1.25) mg/dL Est GFR (MDRD) Af Amer >60 (>60 ml/min/1.73 sqM) Est GFR (MDRD) Non-Af >60 (>60 ml/min/1.73 sqM) Glucose 103 H (74-99) mg/dL Calcium 9.3 (8.4-10.2) mg/dL Magnesium 1.6 (1.6-2.3) mg/dL Total Bilirubin 0.6 (0.2-1.3) mg/dL AST 24 (17-59) U/L ALT 29 (21-72) U/L Alkaline Phosphatase 70 (38-126) U/L Troponin I (0.000-0.034) ng/mL NT-Pro-B Natriuret Pep 3440 pg/mL Total Protein 7.4 (6.3-8.2) g/dL Albumin 4.4 (3.5-5.0) g/dL 04/15/17 Range/Units 17:39 WBC (3.8-10.6) k/uL RBC (4.30-5.90) m/uL Hgb (13.0-17.5) gm/dL Hct (39.0-53.0) % MCV (80.0-100.0) fL MCH (25.0-35.0) pg MCHC (31.0-37.0) g/dL RDW (11.5-15.5) % Plt Count (150-450) k/uL Neutrophils % % Lymphocytes % % Monocytes % % Eosinophils % % Basophils % % Neutrophils # (1.3-7.7) k/uL Lymphocytes # (1.0-4.8) k/uL Monocytes # (0-1.0) k/uL Eosinophils # (0-0.7) k/uL Basophils # (0-0.2) k/uL Hypochromasia Sodium (137-145) mmol/L Potassium (3.5-5.1) mmol/L Chloride (98-107) mmol/L Carbon Dioxide (22-30) mmol/L Anion Gap mmol/L BUN (9-20) mg/dL Creatinine (0.66-1.25) mg/dL Est GFR (MDRD) Af Amer (>60 ml/min/1.73 sqM) Est GFR (MDRD) Non-Af (>60 ml/min/1.73 sqM) Glucose (74-99) mg/dL Calcium (8.4-10.2) mg/dL Magnesium (1.6-2.3) mg/dL Total Bilirubin (0.2-1.3) mg/dL AST (17-59) U/L ALT (21-72) U/L Alkaline Phosphatase (38-126) U/L Troponin I <0.012 (0.000-0.034) ng/mL NT-Pro-B Natriuret Pep pg/mL Total Protein (6.3-8.2) g/dL Albumin (3.5-5.0) g/dL Disposition Clinical Impression: CHF (congestive heart failure), Lower extremity edema Disposition: HOME SELF-CARE Condition: Stable Instructions: Leg Edema (ED) Additional Instructions: Continue Lasix as directed. Please return to the Emergency Department if symptoms worsen or any other concerns. Referrals: Karuna Melvin DO [Primary Care Provider] - 1-2 days Time of Disposition: 18:55
[2017-04-15 17:51] LABS: Basophils # (A) 0.1 k/uL (0-0.2); Basophils % (A) 1 %; Eosinophils # (A) 0.2 k/uL (0-0.7); Eosinophils % (A) 3 %; HCT 46.7 % (39.0-53.0); HGB 14.4 gm/dL (13.0-17.5); Hypochromasia Slight; Lymphocytes # (A) 1.6 k/uL (1.0-4.8); Lymphocytes % (A) 22 %; MCH 29.7 pg (25.0-35.0); MCHC 30.8 g/dL (31.0-37.0); MCV 96.4 fL (80.0-100.0); Mean Platelet Volume 7.8; Monocytes # (A) 0.4 k/uL (0-1.0); Monocytes % (A) 6 %; Neutrophils # (A) 4.8 k/uL (1.3-7.7); Neutrophils % (A) 67 %; Platelet Count 155 k/uL (150-450); RBC 4.85 m/uL (4.30-5.90); WBC 7.2 k/uL (3.8-10.6)
--- NOTE | 2017-04-15 17:56 | XR ---
EXAMINATION TYPE: XR chest 2V DATE OF EXAM: 04/15/2017 COMPARISON: 05/13/2016 HISTORY: Chest pain TECHNIQUE: Frontal and lateral views of the chest are obtained. FINDINGS: Heart appears enlarged. There is coarsening of interstitial markings. This is probably due to pulmonary congestion. There is no pleural effusion. Bony thorax is intact. IMPRESSION: There is mild cardiomegaly and new pulmonary congestion compared to old exam and suggest carmen of mild heart failure.
[2017-04-15 18:00] LABS: ALT 29 U/L (21-72); AST 24 U/L (17-59); Albumin 4.4 g/dL (3.5-5.0); Alkaline Phosphatase 70 U/L (38-126); Anion Gap 10 mmol/L; Blood Urea Nitrogen 16 mg/dL (9-20); Calcium 9.3 mg/dL (8.4-10.2); Carbon Dioxide 25 mmol/L (22-30); Chloride 108 mmol/L (98-107); Glucose 103 mg/dL (74-99); Magnesium 1.6 mg/dL (1.6-2.3); Potassium 3.9 mmol/L (3.5-5.1); Sodium 143 mmol/L (137-145); Total Bilirubin 0.6 mg/dL (0.2-1.3); Total Protein 7.4 g/dL (6.3-8.2)
[2017-04-15 19:26] VITALS: BP 138/80; PULSE 71; RESP 18
== END 2017-04-15 19:26 | disposition home or self-care (01) ==
LOC: EC 16:07
DX: I11.0 Hypertensive heart disease with heart failure (principal); I50.9 Heart failure, unspecified; I48.91 Unspecified atrial fibrillation; E11.9 Type 2 diabetes mellitus without complications; G40.909 Epilepsy, unspecified, not intractable, without status epilepticus; G47.30 Sleep apnea, unspecified; Z86.73 Personal history of transient ischemic attack (TIA), and cerebral infarction without residual deficits; Z99.89 Dependence on other enabling machines and devices; Z82.49 Family history of ischemic heart disease and other diseases of the circulatory system; Z87.891 Personal history of nicotine dependence; Z98.890 Other specified postprocedural states; Z95.5 Presence of coronary angioplasty implant and graft; Z79.01 Long term (current) use of anticoagulants; Z79.84 Long term (current) use of oral hypoglycemic drugs; Z79.02 Long term (current) use of antithrombotics/antiplatelets; Z79.899 Other long term (current) drug therapy
CPT/HCPCS: 36415; 71046; 80053; 83735; 83880; 84484; 85025; 87040; 93005; 99283

== ENCOUNTER 2017-05-16 07:43 | Day surgery (SDC) | payer MEDICARE, OTHER ==
[2017-05-11 10:16] VITALS: BMI 38.6
[~2017-05-16 07:43] MED LIST: ALPRAZolam 0.25 MG TAB PO PRN; ALPRAZolam 0.5 MG TAB PO PRN; ASPIRIN 325 MG TAB PO STA; NITROGLYCERIN SL TABS 0.4 MG TAB SUBLINGUAL PRN; SODIUM CHLORIDE 0.9% 1,000 ML in EMPTY BAG 1 BAG IV ONE
[2017-05-16 08:29] LABS: Glucose,Whole Blood 101 mg/dL (75-99)
[2017-05-16 08:35] VITALS: TEMP 97.6
[2017-05-16] MEDS ORDERED: LIDOCAINE 2% INJ 20 MG/ML (20 ML MDV) ONE (10:38)
[2017-05-16] MEDS ORDERED: fentaNYL (PF) 50 MCG/ML 2 ML AMP ONE (10:38)
[2017-05-16] MEDS ORDERED: diphenhydrAMINE 50 MG/ML 1 ML VIAL ONE (10:38)
[2017-05-16] MEDS ORDERED: VERAPAMIL 2.5 MG/ML 2 ML AMP ONE (10:38)
[2017-05-16] MEDS ORDERED: diphenhydrAMINE 50 MG/ML 1 ML VIAL IVP ONE (11:05)
[2017-05-16] MEDS ORDERED: fentaNYL (PF) 50 MCG/ML 2 ML AMP IV ONE (11:05)
[2017-05-16] MEDS ORDERED: LIDOCAINE 2% INJ 20 MG/ML SQ ONE (11:09)
[2017-05-16] MEDS ORDERED: VERAPAMIL SYRINGE (5 MG/10 ML) INTRAARTER ONE (11:10)
[2017-05-16] MEDS ORDERED: HEPARIN SODIUM 1,000 UN/ML (10ML VL) ONE (11:10)
[2017-05-16] MEDS ORDERED: HEPARIN SODIUM 1,000 UN/ML (10ML VL) IV ONE (11:20)
[2017-05-16] MEDS ORDERED: IOHEXOL 350 MG/ML 125ML BOTTLE INJ ONE (11:25)
[2017-05-16] MEDS ORDERED: RX INFO: IV CONTRAST WAS GIVEN 1 EACH MISC MISCELLANE PRN (11:42)
[2017-05-16] MEDS ORDERED: MELATONIN 5 MG TABLET PO PRN (11:43)
[2017-05-16] MEDS ORDERED: Acetaminophen-Codeine 300-30mg TAB PO PRN (11:43)
[2017-05-16] MEDS ORDERED: SODIUM CHLORIDE 0.9% 1,000 ML IV SCH (11:45)
[2017-05-16 12:14] VITALS: RESP 16
--- NOTE | 2017-05-16 12:35 | CC ---
CARDIAC CATHETERIZATION REPORT Mr. An is a 67-year-old male with known history of hypertension, hyperlipidemia, diabetes mellitus, status post percutaneous revascularization in 2015, who presented with symptoms of progressive dyspnea and evidence of cardiomyopathy. In view of that, recommendation was made regarding cardiac catheterization. The procedure as well as the risks and complications were discussed with the patient who is in full understanding and agreement. PROCEDURE: Patient was brought to labor crew supervisor in a fasting semi-sedated state after receiving fentanyl and Benadryl and achieving moderate conscious sedated state. Using Xylocaine anesthesia in Seldinger technique, a 6-Syriac sheath was introduced in the right radial artery. Selective right and left angiography performed using 5-Syriac 3.5 bend right and left Nora catheter. Multiple views of the coronary artery including hemiaxial views were obtained. Following that, a 5-Syriac type pigtail catheter was introduced in the left ventricle. A 30-degree BUSTAMANTE view of the left ventricle was obtained. Following that, catheter and sheaths were removed. Hemostasis was obtained with deployment of a TR band. There was no immediate complication. Patient is returned to his room in stable condition. FINDINGS: LEFT MAIN: This is a large-sized vessel bifurcating in the left circumflex and left anterior descending artery. Left main coronary artery is without any obstructive disease. LEFT ANTERIOR DESCENDING ARTERY: This is a large-sized vessel, tapers down in the distal third, is diffusely diseased. The stented segment is patent with no evidence of restenoses. It gives rise to a moderately large diagonal branch in mid segment. The LAD has diffuse mild intimal disease of 20% to 30% without any evidence of high-grade stenosis. LEFT CIRCUMFLEX: This is a nondominant vessel giving rise to a large obtuse marginal branch. The left circumflex obtuse marginal branch has a 30% to 40% plaque proximally. The rest of the vessel has no high-grade stenosis. RIGHT CORONARY ARTERY: This is a large dominant vessel bifurcating distally PDA and posterolateral segment and branches. The mid right coronary artery has an intimal plaque of 30%. The rest of the vessel has no high-grade stenosis. LEFT VENTRICULOGRAM: Left ventriculogram is performed in 30-degree BUSTAMANTE view and revealed severe global hypokinesis with ejection fraction 25%. There was no significant mitral regurgitation. HEMODYNAMICS: There is no gradient across the aortic valve. The ventricular end- diastolic pressure was 10 to 12 mmHg. CONCLUSION: 1. Mild to moderate triple-vessel coronary artery disease with no evidence of restenosis of the stented segment of the LAD. 2. Severely impaired left ventricular systolic function, which has worsened compared to 2015. RECOMMENDATION: In view of finding anatomy, I recommend proceeding with evaluation for protestant and normal sinus rhythm. Those findings and recommendation were discussed with the patient and his family and are in full understanding and agreement. Duration of procedure is 20 minutes. MMODL / IJN: [id number] /
[2017-05-16 16:22] VITALS: BP 99/73; PULSE 45
[2017-05-16] MEDS ORDERED: NON-FORMULARY DRUG (Rivaroxaban [Xarelto] 20 MG) PO SCH (17:30)
[2017-05-16] MEDS ORDERED: NON-FORMULARY DRUG (Atenolol [Atenolol] 100 MG) PO SCH (21:00)
[2017-05-16] MEDS ORDERED: TOPIRAMATE 150 MG PO SCH (21:00)
[2017-05-16] MEDS ORDERED: ASCORBIC ACID 500 MG TAB PO SCH (21:00)
[2017-05-16] MEDS ORDERED: NON-FORMULARY DRUG (Cholecalciferol (Vitamin D3) [Vitamin D3] 2,000 UNIT) PO SCH (21:00)
[2017-05-16] MEDS ORDERED: ACETAMINOPHEN TAB 500 MG TAB PO SCH (21:00)
[2017-05-16] MEDS ORDERED: ATORVASTATIN 10 MG TAB PO SCH (21:00)
[2017-05-17] MEDS ORDERED: FUROSEMIDE 20 MG TAB PO SCH (09:00)
[2017-05-17] MEDS ORDERED: CLOPIDOGREL 75 MG TAB PO SCH (09:00)
[2017-05-17] MEDS ORDERED: NON-FORMULARY DRUG (Multivit-Min/Fa/Lycopen/Lutein [Centrum Silver Tablet] 1 EACH) PO SCH (09:00)
[2017-05-17] MEDS ORDERED: LISINOPRIL 20 MG TAB PO SCH (09:00)
[2017-05-17] MEDS ORDERED: POTASSIUM CHLORIDE ER 10 MEQ TAB.ER.PRT PO SCH (09:00)
[2017-05-17] MEDS ORDERED: NON-FORMULARY DRUG (Omeprazole [Omeprazole] 20 MG) PO SCH (09:00)
== END 2017-05-16 16:22 | disposition home or self-care (01) ==
LOC: CATHCVL 07:43
PROVIDERS: ATTEND Internal Medicine Interventional Cardiology
DX: I25.10 Atherosclerotic heart disease of native coronary artery without angina pectoris (principal); I48.1 Persistent atrial fibrillation; I11.9 Hypertensive heart disease without heart failure; I25.5 Ischemic cardiomyopathy; R94.39 Abnormal result of other cardiovascular function study; E78.00 Pure hypercholesterolemia, unspecified; Z95.5 Presence of coronary angioplasty implant and graft; E11.9 Type 2 diabetes mellitus without complications; Z79.01 Long term (current) use of anticoagulants; Z79.84 Long term (current) use of oral hypoglycemic drugs; Z79.02 Long term (current) use of antithrombotics/antiplatelets; Z79.899 Other long term (current) drug therapy
CPT/HCPCS: 93458; C1894; C1769; J2001; J1200; J3010; J1644; Q9967

== ENCOUNTER 2017-06-13 06:38 | Day surgery (SDC) | payer MEDICARE, OTHER ==
[2017-06-09 13:14] VITALS: BMI 38.9
[~2017-06-13 06:38] MED LIST changes: -ALPRAZolam 0.25 MG TAB PO PRN; -ALPRAZolam 0.5 MG TAB PO PRN; -ASPIRIN 325 MG TAB PO STA; +LACTATED RINGERS 1,000 ML IV SCH; +LIDOCAINE 1% 20 ML VIAL (10MG/ML) FOR IV START INTRADERMA PRN; -NITROGLYCERIN SL TABS 0.4 MG TAB SUBLINGUAL PRN; +SODIUM CHLORIDE 0.9% 1,000 ML IV SCH; -SODIUM CHLORIDE 0.9% 1,000 ML in EMPTY BAG 1 BAG IV ONE
[2017-06-13 07:16] LABS: Glucose,Whole Blood 105 mg/dL (75-99)
[2017-06-13 07:22] VITALS: TEMP 98.5
[2017-06-13] MEDS ORDERED: SODIUM CHLORIDE 0.9% 500 ML IV ONE ×2 (07:22)
[2017-06-13] MEDS: BENZOCAINE SPRAY 1 SPRAY CAN MUCOUS MEM ONE ×2 (07:26→07:28)
[2017-06-13] MEDS ORDERED: PROPOFOL 10 MG/ML 20 ML VIAL IV ONE (07:28)
[2017-06-13 07:34] LABS: Basophils # (A) 0.1 k/uL (0-0.2); Basophils % (A) 1 %; Eosinophils # (A) 0.2 k/uL (0-0.7); Eosinophils % (A) 2 %; HCT 45.8 % (39.0-53.0); HGB 14.7 gm/dL (13.0-17.5); Lymphocytes # (A) 2.3 k/uL (1.0-4.8); Lymphocytes % (A) 27 %; MCH 29.6 pg (25.0-35.0); MCHC 32.1 g/dL (31.0-37.0); MCV 92.4 fL (80.0-100.0); Mean Platelet Volume 7.9; Monocytes # (A) 0.6 k/uL (0-1.0); Monocytes % (A) 7 %; Neutrophils # (A) 5.1 k/uL (1.3-7.7); Neutrophils % (A) 61 %; Platelet Count 186 k/uL (150-450); RBC 4.95 m/uL (4.30-5.90); RDW 13.9 % (11.5-15.5); WBC 8.4 k/uL (3.8-10.6)
[2017-06-13] MEDS ORDERED: MELATONIN 5 MG TABLET PO PRN (07:47)
[2017-06-13] MEDS ORDERED: Acetaminophen-Codeine 300-30mg TAB PO PRN (07:47)
[2017-06-13] MEDS ORDERED: NON-FORMULARY DRUG (Sildenafil Citrate [Viagra] 100 MG) PO PRN (07:47)
[2017-06-13 07:48] LABS: Anion Gap 11 mmol/L; Blood Urea Nitrogen 16 mg/dL (9-20); Calcium 9.1 mg/dL (8.4-10.2); Carbon Dioxide 22 mmol/L (22-30); Chloride 112 mmol/L (98-107); Glucose 108 mg/dL (74-99); Potassium 4.4 mmol/L (3.5-5.1); Sodium 145 mmol/L (137-145)
[2017-06-13 07:56] VITALS: RESP 16
[2017-06-13] MEDS ORDERED: SODIUM CHLORIDE 0.9% 1,000 ML IV SCH (08:00)
--- NOTE | 2017-06-13 08:02 | ECHOT ---
TRANSESOPHAGEAL ECHOCARDIOGRAM INDICATION: Evaluation left atrial appendage. PROCEDURE: After explaining the procedure to the patient, its risks and the complications, blood pressure, heart rate, O2 saturation was monitored. Subsequently, he received sedation per the Anesthesia Department. The probe was introduced into the esophagus without difficulty. Images were obtained. Following that, the probe was removed. There was no immediate complication. FINDINGS: The left atrial size is dilated. Right atrial size is dilated. Left atrial appendage revealed a thrombus. The left ventricle size is normal. There is evidence of global hypokinesis. Estimated ejection fraction is 30% to 35%. The aortic valve, mitral valve, tricuspid valve, and normal descending thoracic aorta appears to be normal. No pericardial effusion was noted. Contrast bubble study revealed no evidence of shunting across the interatrial septum. Doppler pulse wave was obtained and revealed mild to moderate mitral and tricuspid regurgitation. There was no shunting by color Doppler study. CONCLUSION: 1. Biatrial enlargement with evidence of left atrial appendage thrombus. 2. Normal left ventricular size with severe global hypokinesis. 3. [id number] mitral and tricuspid regurgitation with no evidence of pulmonary hypertension. 4. Normal appearance of the descending thoracic aorta. MMODL / IJN: [id number] /
[2017-06-13 08:58] VITALS: BP 126/73; PULSE 78
[2017-06-13] MEDS ORDERED: NON-FORMULARY DRUG (Multivit-Min/Fa/Lycopen/Lutein [Centrum Silver Tablet] 1 EACH) PO SCH (09:00)
[2017-06-13] MEDS ORDERED: TOPIRAMATE 150 MG PO SCH (09:00)
[2017-06-13] MEDS ORDERED: POTASSIUM CHLORIDE ER 10 MEQ TAB.ER.PRT PO SCH (09:00)
[2017-06-13] MEDS ORDERED: LISINOPRIL 20 MG TAB PO SCH (09:00)
[2017-06-13] MEDS ORDERED: CLOPIDOGREL 75 MG TAB PO SCH (09:00)
[2017-06-13] MEDS ORDERED: FUROSEMIDE 20 MG TAB PO SCH (09:00)
[2017-06-13] MEDS ORDERED: ACETAMINOPHEN TAB 500 MG TAB PO SCH (09:00)
[2017-06-13] MEDS ORDERED: NON-FORMULARY DRUG (Omeprazole [Omeprazole] 20 MG) PO SCH (09:00)
[2017-06-13] MEDS ORDERED: metFORMIN 850 MG TAB PO SCH (09:00)
[2017-06-13 16:42] LABS: Hemoglobin A1C 6.7 % (4.0-6.0)
[2017-06-13] MEDS ORDERED: RIVAROXABAN 20 MG TAB PO SCH (17:30)
[2017-06-13] MEDS ORDERED: ASCORBIC ACID 500 MG TAB PO SCH (21:00)
[2017-06-13] MEDS ORDERED: FERROUS SULFATE 325 MG TAB PO SCH (21:00)
[2017-06-13] MEDS ORDERED: NON-FORMULARY DRUG (Cholecalciferol (Vitamin D3) [Vitamin D3] 2,000 UNIT) PO SCH (21:00)
[2017-06-13] MEDS ORDERED: ATORVASTATIN 10 MG TAB PO SCH (21:00)
[2017-06-13] MEDS ORDERED: NON-FORMULARY DRUG (Atenolol [Atenolol] 100 MG) PO SCH (21:00)
== END 2017-06-13 09:37 | disposition home or self-care (01) ==
LOC: CATHCVL 06:38
PROVIDERS: ATTEND Internal Medicine Interventional Cardiology
DX: I08.1 Rheumatic disorders of both mitral and tricuspid valves (principal); I11.9 Hypertensive heart disease without heart failure; I48.1 Persistent atrial fibrillation; I25.10 Atherosclerotic heart disease of native coronary artery without angina pectoris; I25.5 Ischemic cardiomyopathy; E78.2 Mixed hyperlipidemia; E11.9 Type 2 diabetes mellitus without complications; G47.33 Obstructive sleep apnea (adult) (pediatric); K21.9 Gastro-esophageal reflux disease without esophagitis; E66.01 Morbid (severe) obesity due to excess calories; Z68.38 Body mass index [BMI] 38.0-38.9, adult; Z95.5 Presence of coronary angioplasty implant and graft; Z79.01 Long term (current) use of anticoagulants; Z79.84 Long term (current) use of oral hypoglycemic drugs; Z79.02 Long term (current) use of antithrombotics/antiplatelets; Z79.899 Other long term (current) drug therapy
CPT/HCPCS: 93312; 93320; 93325; 80048; 85025; 83036; J2704; 92960

== ENCOUNTER 2017-07-21 06:33 | Day surgery (SDC) | payer MEDICARE, OTHER ==
[2017-07-14 13:25] VITALS: BMI 38.9
[~2017-07-21 06:33] MED LIST changes: -SODIUM CHLORIDE 0.9% 1,000 ML IV SCH; +fentaNYL (PF) 50 MCG/ML 2 ML AMP IV PRN
[2017-07-21 07:07] LABS: Glucose,Whole Blood 109 mg/dL (75-99)
[2017-07-21 07:09] VITALS: TEMP 98
[2017-07-21] MEDS ORDERED: SODIUM CHLORIDE 0.9% 500 ML IV ONE (07:15)
[2017-07-21] MEDS ORDERED: BENZOCAINE SPRAY 1 CAN MUCOUS MEM ONE (07:23)
[2017-07-21] MEDS ORDERED: PROPOFOL 10 MG/ML 20 ML VIAL IV ONE (07:23)
[2017-07-21] MEDS ORDERED: LIDOCAINE 1% INJ 10MG/ML (20 ML MDV) ONE (07:23)
[2017-07-21] MEDS ORDERED: HYDROcodone/APAP 10-325MG 1 EACH TAB PO PRN (07:42)
[2017-07-21] MEDS ORDERED: Acetaminophen-Codeine 300-30mg TAB PO PRN (07:42)
[2017-07-21] MEDS ORDERED: MELATONIN 5 MG TABLET PO PRN (07:42)
[2017-07-21] MEDS ORDERED: NON-FORMULARY DRUG (Sildenafil Citrate [Viagra] 100 MG) PO PRN (07:42)
[2017-07-21] MEDS ORDERED: SODIUM CHLORIDE 0.9% 1,000 ML IV SCH (07:45)
--- NOTE | 2017-07-21 08:00 | ECHOT ---
TRANSESOPHAGEAL ECHOCARDIOGRAM Mr. An is a 67-year-old. INDICATION: Atrial fibrillation. PROCEDURE: After explaining the procedure to the patient with risks and complications, blood pressure, heart rate O2 saturation was monitored. The throat was sprayed with Cetacaine. He received sedation per anesthesia department. A probe was introduced in the esophagus without difficulty. Images were obtained. Following that, the probe was removed. There was no immediate complication. FINDINGS: Left atrial size is dilated. Left atrial appendage revealed no evidence of thrombus. There was evidence of spontaneous contrast. The left ventricular size is normal. There is moderate global hypokinesis with ejection fraction of 40% to 45%. The aortic valve revealed fibrocalcific change with aortic cusp with preserved opening. Mitral valve appears to be normal. Tricuspid valve is normal. Descending thoracic aorta appears to be normal. There was evidence of patent foramen ovale with [id number] shunting with contrast bubble study. No pericardial effusion was noted. Doppler pulse wave and color Doppler obtained revealed mild to moderate mitral with mild tricuspid regurgitation. There was [id number] shunting through a patent foramen ovale. CONCLUSION: 1. Dilated left atrium with normal appearance left atrial appendage and evidence of spontaneous contrast. 2. Patent foramen ovale with bidirectional flow. 3. Normal left ventricular size with moderate global hypokinesis. 4. Aortic sclerosis with no evidence of stenosis. 5. Mild to moderate mitral with mild tricuspid regurgitation. MMODL / IJN: [id number] /
--- NOTE | 2017-07-21 08:06 | CE ---
CARDIAC ELECTROPHYSIOLOGY REPORT CARDIOVERSION PROCEDURE NOTE INDICATION: Atrial fibrillation. PROCEDURE: After explaining the procedure to the patient as well as risks and complications, his blood pressure heart rate, O2 saturation was monitored. After obtaining sedated state with the anesthesia department, and performing transesophageal echocardiogram, a synchronized biphasic cardioversion using 200, 300 and 360 joules were unsuccessful in restoring normal sinus rhythm. There was no immediate complication. MICKI / NICOLEN: [id number] /
[2017-07-21] MEDS ORDERED: NON-FORMULARY DRUG (Multivit-Min/Fa/Lycopen/Lutein [Centrum Silver Tablet] 1 EACH) PO SCH (09:00)
[2017-07-21] MEDS ORDERED: POTASSIUM CHLORIDE ER 10 MEQ TAB.ER.PRT PO SCH (09:00)
[2017-07-21] MEDS ORDERED: LISINOPRIL 20 MG TAB PO SCH (09:00)
[2017-07-21] MEDS ORDERED: metFORMIN 850 MG TAB PO SCH (09:00)
[2017-07-21] MEDS ORDERED: FUROSEMIDE 20 MG TAB PO SCH (09:00)
[2017-07-21] MEDS ORDERED: TOPIRAMATE 150 MG PO SCH (09:00)
[2017-07-21] MEDS ORDERED: NON-FORMULARY DRUG (Omeprazole [Omeprazole] 20 MG) PO SCH (09:00)
[2017-07-21] MEDS ORDERED: CLOPIDOGREL 75 MG TAB PO SCH (09:00)
[2017-07-21] MEDS ORDERED: ACETAMINOPHEN TAB 500 MG TAB PO SCH (09:00)
[2017-07-21 09:27] VITALS: PULSE 74
[2017-07-21 09:43] VITALS: BP 133/84; RESP 20
[2017-07-21] MEDS ORDERED: RIVAROXABAN 20 MG TAB PO SCH (17:30)
[2017-07-21] MEDS ORDERED: FERROUS SULFATE 325 MG TAB PO SCH (21:00)
[2017-07-21] MEDS ORDERED: NON-FORMULARY DRUG (Atenolol [Atenolol] 100 MG) PO SCH (21:00)
[2017-07-21] MEDS ORDERED: ASCORBIC ACID 500 MG TAB PO SCH (21:00)
[2017-07-21] MEDS ORDERED: NON-FORMULARY DRUG (Cholecalciferol (Vitamin D3) [Vitamin D3] 2,000 UNIT) PO SCH (21:00)
[2017-07-21] MEDS ORDERED: ATORVASTATIN 10 MG TAB PO SCH (21:00)
== END 2017-07-21 09:43 | disposition home or self-care (01) ==
LOC: CATHCVL 06:33
PROVIDERS: ATTEND Internal Medicine Interventional Cardiology
DX: I48.1 Persistent atrial fibrillation (principal); Z79.01 Long term (current) use of anticoagulants; I08.2 Rheumatic disorders of both aortic and tricuspid valves; Q21.1 Atrial septal defect; I25.5 Ischemic cardiomyopathy; I25.10 Atherosclerotic heart disease of native coronary artery without angina pectoris; I10 Essential (primary) hypertension; E78.2 Mixed hyperlipidemia; E11.9 Type 2 diabetes mellitus without complications; Z79.84 Long term (current) use of oral hypoglycemic drugs; Z95.5 Presence of coronary angioplasty implant and graft; Z79.02 Long term (current) use of antithrombotics/antiplatelets; Z79.899 Other long term (current) drug therapy; Z86.73 Personal history of transient ischemic attack (TIA), and cerebral infarction without residual deficits
CPT/HCPCS: 93312; 93320; 93325; 92960; J2001; J2704; 93005

== ENCOUNTER → 2017-11-05 | Outpatient (CLI) | payer MEDICARE, OTHER ==
[2017-11-05 13:34] LABS: Potassium 4.3 mmol/L (3.5-5.1); Total Bilirubin 0.9 mg/dL (0.2-1.3); Total Protein 6.7 g/dL (6.3-8.2); Uric Acid 6.9 mg/dL (3.5-8.5)
[2017-11-05 14:46] LABS: Basophils # (A) 0.1 k/uL (0-0.2); Basophils % (A) 1 %; Eosinophils # (A) 0.1 k/uL (0-0.7); Eosinophils % (A) 2 %; HCT 47.4 % (39.0-53.0); Hypochromasia Moderate; Lymphocytes % (A) 18 %; MCH 30.6 pg (25.0-35.0); MCHC 29.6 g/dL (31.0-37.0); MCV 103.4 fL (80.0-100.0); Macrocytosis Slight; Mean Platelet Volume 7.8; Monocytes # (A) 0.4 k/uL (0-1.0); Monocytes % (A) 7 %; Neutrophils # (A) 3.8 k/uL (1.3-7.7); Neutrophils % (A) 70 %; Platelet Count 144 k/uL (150-450); RBC 4.59 m/uL (4.30-5.90); RDW 13.6 % (11.5-15.5); WBC 5.4 k/uL (3.8-10.6)
[2017-11-05 18:14] LABS: Hemoglobin A1C 5.5 % (4.0-6.0)
== END | disposition home or self-care (01) ==
LOC: RADXRMAIN 12:28
PROVIDERS: ATTEND Family Medicine
DX: E11.8 Type 2 diabetes mellitus with unspecified complications (principal); I50.9 Heart failure, unspecified; I10 Essential (primary) hypertension
CPT/HCPCS: 80053; 80061; 82140; 83036; 83615; 83880; 84443; 84550; 85025

== ENCOUNTER → 2017-12-28 | Outpatient (CLI) | payer MEDICARE, OTHER ==
--- NOTE | 2017-12-28 18:05 | CONS ---
CONSULTATION DATE OF SERVICE: 12/28/2017 This patient is a 67-year-old gentleman who has been evaluated in the sleep center for obstructive sleep apnea-hypopnea syndrome. HISTORY OF PRESENT ILLNESS/SLEEP-WAKE EVALUATION: Patient was diagnosed with obstructive sleep apnea about 10 years ago in [place]. Since that time he has been on treatment with CPAP. At present he is on treatment with CPAP on an off. He does not feel comfortable with his mask and his machine. His sleep schedule is from between 10 p.m. and 2 a.m. until 10 a.m. No problem with falling asleep. He awakes up from sleep once. [place] Sleepiness Scale is 3. Sometimes the patient takes naps during the day. PAST MEDICAL HISTORY: 1. Hypertension. 2. Coronary artery disease. 3. Atrial fibrillation. 4. History of iron deficiency anemia. 5. Acid reflux. 6. Memory problems. 7. Hyperlipidemia. 8. Epilepsy. 9. Stroke about 3 years ago with speech problems. 10.History of shoulder problems. 11.Diabetes mellitus. PAST SURGICAL HISTORY: 1. Sinuses surgery. 2. Right knee surgery. 3. Nasal surgery with rhinoplasty after fracture of the nose. MEDICATIONS: 1. Metformin. 2. Cholecalciferol. 3. Topiramate. 4. Ferrous sulfate. 5. Lisinopril. 6. Clopidogrel. 7. Omeprazole. 8. Atorvastatin. 9. Xarelto. 10.Acetaminophen. 11.Furosemide. 12.Aldactone. 13.Centrum Silver. 14.Codeine for pain. 15.Cordarone. 16.Melatonin. 17.Nitroglycerin. SOCIAL HISTORY: Positive for smoking in the past; quit in 1976. Alcohol consumption none. FAMILY HISTORY: Patient does not remember medical problems in the family. COPD and emphysema in his father. REVIEW OF SYSTEMS: Awakenings from sleep, cardiac arrhythmia, memory problems, sometimes tremor. PHYSICAL EXAMINATION: GENERAL A pleasant gentleman without distress. VITAL SIGNS: BP 101/69, HR 64, RR 18, height 6 feet 1-1/2 inches, weight 272.6, body mass index 35.3, temperature 97.3, oxygen saturation at room air 97%. HEENT: PERRLA, EOMI. Evaluation of oropharynx showed tongue protrudes midline; low position of soft palate. NECK: Wide neck; 17 inches in circumference. Supple. No JVD. Thyroid is not palpable. LUNGS: Clear to percussion and to auscultation. Good air exchange. No wheezing or rhonchi. HEART: S1, S2 irregularly irregular. Atrial fibrillation. ABDOMEN: Soft and nontender. Bowel sounds are present. No organomegaly appreciated. EXTREMITIES : No clubbing or cyanosis. FORM TAMPER: Awake, alert, and oriented X3. Cranial nerves 2 to 7 intact. There is no fasciculation or atrophy. noted. No focal deficits observed. IMPRESSION: 1. Snoring, history of sleep apnea for more than 10 years. The patient is on treatment with CPAP but has difficulties with the CPAP machine; it does not work well. Low position of soft palate, wide neck; obstructive sleep apnea-hypopnea syndrome. 2. Mild obesity; body mass index 35.3. 3. Atrial fibrillation. 4. Coronary artery disease. 5. History of iron deficiency anemia. 6. History of hypertension. 7. Acid reflux. 8. Hyperlipidemia. 9. History of epilepsy with seizures in the past. 10.History of stroke about 3 years ago with speech problems at the moment of stroke. No significant residual deficit at the present time. 11.Episodes of tremor. 12.Status post nasal fracture. 13.Status post nasal sinus surgery. 14.Status post bilateral knee surgery for meniscus problems. 15.Status post left clavicle surgery. PLAN: 1. We will try to get results of previous sleep studies. 2. CPAP titration for reevaluation of effective CPAP pressure at the present time with the goal to fit the patient with a proper mask and to find pressure for correction of his respiratory abnormalities. 3. Sleep hygiene with regular time bed for at least 8 hours. 4. No driving if feeling any sleepiness. Thank you very much for referring this patient for consultation. Sincerely, Lucas Dixon MD, PhD, FAASM Diplomat of [employer] System Operator of [facility] [place] MMODL / IJN: [id number] /
== END ==
LOC: SLEEP 15:37
PROVIDERS: ATTEND Internal Medicine
DX: G47.33 Obstructive sleep apnea (adult) (pediatric) (principal); E66.9 Obesity, unspecified; I48.91 Unspecified atrial fibrillation; I25.10 Atherosclerotic heart disease of native coronary artery without angina pectoris; D50.9 Iron deficiency anemia, unspecified; I10 Essential (primary) hypertension; K21.9 Gastro-esophageal reflux disease without esophagitis; E78.5 Hyperlipidemia, unspecified; G40.909 Epilepsy, unspecified, not intractable, without status epilepticus; E11.9 Type 2 diabetes mellitus without complications; I25.2 Old myocardial infarction; R25.1 Tremor, unspecified; Z98.890 Other specified postprocedural states; Z99.89 Dependence on other enabling machines and devices; Z87.891 Personal history of nicotine dependence; Z79.84 Long term (current) use of oral hypoglycemic drugs; Z79.899 Other long term (current) drug therapy; Z79.891 Long term (current) use of opiate analgesic
CPT/HCPCS: 99211

== ENCOUNTER 2018-03-27 07:05 | Day surgery (SDC) | payer MEDICARE, OTHER ==
[~2018-03-27 07:05] MED LIST changes: +HYDROmorphone 1 MG/ML 1 ML SYRINGE IVP PRN; -LIDOCAINE 1% 20 ML VIAL (10MG/ML) FOR IV START INTRADERMA PRN; +MIDAZOLAM (PF) 2 MG/2 ML VIAL IV PRN; -fentaNYL (PF) 50 MCG/ML 2 ML AMP IV PRN
[2018-03-27] MEDS: SODIUM CHLORIDE 0.9% 1,000 ML IV SCH ×2 (07:37→17:40)
[2018-03-27 07:42] LABS: Glucose,Whole Blood 107 mg/dL (75-99)
[2018-03-27] MEDS ORDERED: GLYCOPYRROLATE 0.2 MG/ML 2 ML VIAL ONE (08:09)
[2018-03-27] MEDS ORDERED: HEPARIN SODIUM,PORCINE 10,000 UNIT/ML 1 ML VIAL ONE (08:09)
[2018-03-27] MEDS ORDERED: PHENYLEPHRINE-0.9% NACL SYG 1 MG/10 ML SYRINGE ONE (08:09)
[2018-03-27] MEDS ORDERED: NEOSTIGMINE 1 MG/ML 10 ML VIAL ONE (08:09)
[2018-03-27] MEDS ORDERED: ONDANSETRON 4 MG/2 ML VIAL ONE (08:09)
[2018-03-27] MEDS ORDERED: PROPOFOL 10 MG/ML 20 ML VIAL IV ONE (08:09)
[2018-03-27] MEDS ORDERED: ROCURONIUM BROMIDE 10 MG/ML 10 ML VIAL IV ONE (08:09)
[2018-03-27] MEDS ORDERED: fentaNYL (PF) 50 MCG/ML 2 ML AMP ONE (08:09)
[2018-03-27] MEDS ORDERED: LIDOCAINE 1% INJ 10MG/ML (20 ML MDV) ONE (08:09)
[2018-03-27] MEDS ORDERED: PROTAMINE SULFATE 10 MG/ML 5 ML VIAL IV ONE (08:09)
[2018-03-27] MEDS ORDERED: MIDAZOLAM 2 MG/2 ML VIAL ONE (08:09)
[2018-03-27] MEDS ORDERED: FUROSEMIDE 10 MG/ML 2 ML VIAL ONE (08:09)
[2018-03-27] MEDS ORDERED: DEXAMETHASONE SOD PHOS (MDV) 100 MG/10 ML VIAL ONE (08:09)
[2018-03-27] MEDS ORDERED: SUCCINYLCHOLINE CHLORIDE 100 MG/5 ML SYR IV ONE (08:09)
[2018-03-27] MEDS ORDERED: KETOROLAC 30 MG/ML 1 ML VIAL ONE (08:09)
[2018-03-27] MEDS ORDERED: HYDROmorphone (PF) 1 MG/ML ONE (08:09)
[2018-03-27] MEDS ORDERED: LIDOCAINE 1% INJ 10MG/ML (20 ML MDV) SQ ONE (08:55)
[2018-03-27] MEDS ORDERED: LACTATED RINGERS 1,000 ML IV ONE (11:08)
[2018-03-27] MEDS ORDERED: IOPAMIDOL-250 100ML BTL IV ONE ×2 (11:13→11:53)
[2018-03-27] MEDS ORDERED: HEPARIN SODIUM (1,000 UNIT/ML) 1,000 UNIT in SODIUM CHLORIDE 0.9% 1,000 ML IRRIGATION ONE ×2 (12:00→14:32)
[2018-03-27] MEDS ORDERED: HYDROcodone/APAP 5-325MG 1 EACH TAB PO PRN (15:22)
[2018-03-27] MEDS ORDERED: ACETAMINOPHEN IV (For NPO) 1,000 MG in EMPTY BAG 1 BAG IVPB ONE (15:22)
[2018-03-27] MEDS ORDERED: ACETAMINOPHEN TAB 325 MG TAB PO PRN (15:22)
--- NOTE | 2018-03-27 16:06 | P.PCN ---
Preoperative Diagnosis: Increase procedure services, modified 22 Patient's A. fib ablation was a very long procedure. Transseptal catheterization took greater than 45 minutes Left atrium was very large, pulmonary veins especially the inferior pulmonary veins are very large pulmonary vein isolation was performed followed by linear ablation lines 4. Application of adequate contact force was one of the biggest cause the length of the procedure which took over 7 hours
[2018-03-27 17:26] LABS: Glucose,Whole Blood 134 mg/dL (75-99)
[2018-03-27] MEDS ORDERED: RIVAROXABAN 20 MG TAB PO SCH (17:30)
[2018-03-27 18:05] VITALS: BMI 35.7
[2018-03-27 20:42] LABS: Glucose,Whole Blood 137 mg/dL (75-99)
[2018-03-27] MEDS: FUROSEMIDE 40 MG TAB PO SCH (20:53)
[2018-03-27] MEDS: INSULIN ASPART 100 UNIT/ML 1 ML 10 ML VIAL SQ SCH (20:53)
[2018-03-27] MEDS: AMIODARONE 200 MG TAB PO SCH (20:53)
[2018-03-27] MEDS ORDERED: ATORVASTATIN 10 MG TAB PO SCH (21:00)
--- NOTE | 2018-03-27 22:55 | PCN ---
PROCEDURE NOTE Umair An has persistent atrial fibrillation. He has failed anti-arrhythmic drug therapy with electrical cardioversion. He could not be successfully cardioverted to sinus rhythm. He has developed cardiomyopathy on account of atrial fibrillation , even though he is rate-controlled. He has severe cardiomyopathy with class 3 heart failure symptoms. He was brought in for an atrial fibrillation ablation. The patient was brought to the EP lab in a fasting state. Written informed consent was obtained prior to the procedure. The procedure was performed under general anesthesia. Left and right groins were prepped and draped as per protocol. A 5-[place] arterial sheath was placed in the right femoral artery and hemodynamic monitoring with sampling was performed through the procedure. Patient's blood pressure was supported through the procedure during general anesthesia. This was removed at the end of the procedure. Venous sheaths were placed in the right and left femoral veins and diagnostic and mapping ablation catheters were placed in the high right atrium, His bundle area , RV, coronary sinus, high SVC for phrenic nerve pacing, and the left atrium. Initially, cryoablation of the pulmonary veins was performed. Right and left transseptal catheterization was performed. Patient was in atrial fibrillation at the start of the study. RA pressure 22 x 14 x 19 mmHg. LV pressure 31 x 12 x 21 mmHg. This was a very difficult transseptal catheterization, even though the patient had a large fossa ovalis and a fairly thin fossa. It was difficult to cross the fossa with the sheath. A transseptal puncture was performed, initially in the upper half and then subsequently in the mid portion. A Transsept wire was used to cross over, but it was very difficult to pass the sheath. The cryo sheath was also very difficult to pass. Finally, after 45 minutes and repositioning the transseptal puncture site, I was able to cross over and place the cryo sheath. The patient had a very large left atrium with large pulmonary veins, especially the inferior veins. In particular, the right inferior pulmonary vein was very large and a cryo balloon could not be placed in a stable position for complete occlusion. The left superior, left inferior and the right superior veins were sequentially ablated. pacing was performed. No phrenic nerve injury was noted. However, although the right inferior pulmonary vein was ablated with cryoablation for 2 minutes, we did not ablated for the usual 3-5 minutes because of catheter instability/balloon instability at the level of the os and and of an inferior leak. The right inferior pulmonary vein was a large diameter vein and in combination with a very large left atrium, balloon stability could not be achieved at the antral level of this vein for complete cryoablation per protocol. Therefore, following that, cryo balloon was removed. A regular sheath was placed across the fossa ovalis and an assistant plant control operator-tip RF catheter was placed. Three-dimensional mapping of the left atrium was performed. Voltage mapping of the pulmonary veins revealed that the left superior, left inferior and the right superior veins were completely isolated, and the right inferior vein was partially isolated from a short cryoablation lesion. It was very difficult. The size of the left atrium and the size of the right inferior pulmonary vein made it very difficult to map around the right inferior pulmonary vein. The posterior wall was very difficult to stably contact with adequate contact force. However, a linear ablation was performed in the roof of the left atrium. Good contact force and good power was achieved, and a complete line of block was made. Next , a mitral isthmus line was made in areas of fractionated electrograms from the left inferior pulmonary vein to the mitral anulus. Both these lines did not result in any significant organization on 12-lead ECG, but the coronary sinus was definitely organized. Following this, RF ablation was performed along the anterior antrum of the right -sided veins, but the posterior antrum could not be contacted with adequate contact force and therefore was not ablated. A circular linear ablation was performed around the transseptal site in the fossa ovalis in areas of almost continuous fractionation, and this resulted in further organization of the coronary sinus electrograms, but the patient remained in atrial fibrillation. At the end of the procedure, the patient was successfully cardioverted. Previously electrical cardioversion could not be performed successfully before this ablation. Sinus cycle length 974 milliseconds, KS interval 182 milliseconds, QRS 114 milliseconds, QT 521 milliseconds, AH 86 milliseconds, HV interval 60 milliseconds. Sinus node recovery times at 600 milliseconds was 1016 milliseconds. VA Wenckebach block greater than 600 milliseconds. All catheters were then removed and IV amiodarone 450 mg bolus was given. Patient received IV Lasix through the procedure. RESULT: Atrial fibrillation ablation in a very dilated left atrium, persistent atrial fibrillation, associated cardiomyopathy with heart failure. SUGGEST: Start oral amiodarone and continue Xarelto. Continue cardiomyopathy medications. Follow up with Dr. Young. PROCEDURES PERFORMED: 1. Percutaneous arterial catheterization and cannulation for sampling and monitoring. 2. Comprehensive diagnostic EP study without induction of arrhythmia. 3. Left atrial pacing and recording. 4. Three-D mapping. 5. Transseptal catheterization. 6. Intracardiac echocardiography. 7. Pulmonary vein isolation, [address]7823, and then additional RF lines for atrial fibrillation, 09340. Four additional linear RF lines were made. Intracardiac echocardiography was performed from the beginning of the procedure. The large left atrium and large pulmonary veins were identified. Transseptal access was obtained using intracardiac echo guidance, and at the end of the procedure there was no pericardial effusion noted. Electrical cardioversion was performed at the end of the procedure successfully to sinus rhythm. PLAN: Oral amiodarone 400 mg p.o. daily for one month, then 200 mg daily for one month , then 100 mg daily thereafter to maintain sinus rhythm. MMODL / IJN: [id number] / DIANE
[2018-03-28 07:12] LABS: Glucose,Whole Blood 100 mg/dL (75-99)
[2018-03-28] MEDS: INSULIN ASPART 100 UNIT/ML 1 ML 10 ML VIAL SQ SCH ×2 (07:15→11:36)
[2018-03-28] MEDS: FUROSEMIDE 40 MG TAB PO SCH (08:03)
[2018-03-28] MEDS: AMIODARONE 200 MG TAB PO SCH (08:03)
[2018-03-28 08:13] VITALS: RESP 18
[2018-03-28] MEDS ORDERED: CLOPIDOGREL 75 MG TAB PO SCH (09:00)
[2018-03-28] MEDS ORDERED: LISINOPRIL 20 MG TAB PO SCH (09:00)
[2018-03-28] MEDS ORDERED: SPIRONOLACTONE 25 MG TAB PO SCH (09:00)
[2018-03-28] MEDS ORDERED: TOPIRAMATE 100 MG TAB PO SCH (09:15)
[2018-03-28 11:10] LABS: Glucose,Whole Blood 120 mg/dL (75-99)
[2018-03-28 11:39] VITALS: BP 119/78; TEMP 98.5
[2018-03-28 12:06] VITALS: PULSE 54
--- NOTE | 2018-03-28 12:58 | P.DS ---
Providers Attending physician: Demar Larsen Primary care physician: Day Kimball Hospital Course: Patient is doing well. He is a mild sore throat but no chest discomfort no pleuritic pain no dizziness lightheadedness or palpitations Vitals are stable, pulse rate in the 80s Normal respirations blood pressure normal 119/78 mmHg Head negative examination is normal no JVD Sounds are clear no rhonchi no crackles Heart sounds are normal normal S1 normal S2 no murmurs or gallop Groin is healed well no hematoma no swelling Impression Persistent symptomatic atrial fibrillation with congestive heart failure Severe LV dysfunction despite rate control of atrial fibrillation Pulmonary vein isolation followed by linear A. fib ablation Electrical cardioversion performed at the end of the procedure successfully. A single electrical cardioversion at 360 J shock was successfully Patient started on oral amiodarone 400 mg by mouth daily for one month then 200 mg daily for one month that 100 mg daily thereafter He will ambulate in the hallways today and if he seems chronically stableness groins if he felt any be discharged home after lunch today in follow-up with Dr. Dr. Young/ johnathan, EVA in a week. And granulation to continue lifelong Patient Condition at Discharge: Stable Plan - Discharge Summary Discharge Rx Participant: No New Discharge Prescriptions: New RX: Amiodarone [Cordarone] 400 mg PO DAILY #90 tablet No Action RX: Rivaroxaban [Xarelto] 20 mg PO W/SUPPER RX: Topiramate 150 mg PO BID RX: Sildenafil Citrate [Viagra] 100 mg PO DAILY PRN PRN Reason: Er. Dys. RX: Acetaminophen-Codeine 300-30mg [Tylenol w/codeine #3] 1 tab PO BID PRN PRN Reason: Pain RX: metFORMIN HCL [Glucophage] 850 mg PO BID RX: Clopidogrel [Plavix] 75 mg PO QAM RX: Omeprazole 20 mg PO DAILY #30 cap RX: Cholecalciferol (Vitamin D3) [Vitamin D3] 2,000 unit PO HS RX: Atorvastatin [Lipitor] 10 mg PO HS RX: Lisinopril [Zestril] 20 mg PO DAILY RX: Ferrous Sulfate [Iron (65 MG Elemental)] 325 mg PO HS RX: Ascorbic Acid [Vitamin C] 500 mg PO HS RX: Acetaminophen [Tylenol Extra Strength] 1,000 mg PO BID RX: Multivit-Min/FA/Lycopen/Lutein [Centrum Silver Tablet] 1 each PO DAILY RX: Melatonin 5 mg PO HS PRN PRN Reason: Insomnia Nitroglycerin Sl Tabs [Nitrostat] 0.4 mg SUBLINGUAL Q5M PRN PRN Reason: Chest Pain Spironolactone [Aldactone] 25 mg PO DAILY Furosemide [Lasix] 40 mg PO BID Discharge Medication List RX: Acetaminophen-Codeine 300-30mg [Tylenol w/codeine #3] 1 tab PO BID PRN 07/09 [History] RX: Rivaroxaban [Xarelto] 20 mg PO W/SUPPER 07/09/14 [History] RX: Sildenafil Citrate [Viagra] 100 mg PO DAILY PRN 07/09/14 [History] RX: Topiramate 150 mg PO BID 07/09/14 [History] RX: metFORMIN HCL [Glucophage] 850 mg PO BID 07/09/14 [History] RX: Clopidogrel [Plavix] 75 mg PO QAM 05/13/16 [History] RX: Omeprazole 20 mg PO DAILY #30 cap 05/17/16 [Rx] RX: Acetaminophen [Tylenol Extra Strength] 1,000 mg PO BID 04/15/17 [History] RX: Ascorbic Acid [Vitamin C] 500 mg PO HS 04/15/17 [History] RX: Atorvastatin [Lipitor] 10 mg PO HS 04/15/17 [History] RX: Cholecalciferol (Vitamin D3) [Vitamin D3] 2,000 unit PO HS 04/15/17 [History ] RX: Ferrous Sulfate [Iron (65 MG Elemental)] 325 mg PO HS 04/15/17 [History] RX: Lisinopril [Zestril] 20 mg PO DAILY 04/15/17 [History] RX: Melatonin 5 mg PO HS PRN 05/11/17 [History] RX: Multivit-Min/FA/Lycopen/Lutein [Centrum Silver Tablet] 1 each PO DAILY 05/11 [History] Furosemide [Lasix] 40 mg PO BID 03/22/18 [History] Nitroglycerin Sl Tabs [Nitrostat] 0.4 mg SUBLINGUAL Q5M PRN 03/22/18 [History] Spironolactone [Aldactone] 25 mg PO DAILY 03/22/18 [History] RX: Amiodarone [Cordarone] 400 mg PO DAILY #90 tablet 03/27/18 [Rx] Follow up Appointment(s)/Referral(s): Sara Young MD [STAFF PHYSICIAN] - 1 Week (office will call patient with appointment ) Activity/Diet/Wound Care/Special Instructions: Post EP study - Ablation instructions 1. Keep access sites dry for 2 days. 2. No heavy lifting or straining for 2 days. 3. Avoid bending the hips repeatedly for 2 days. 4. You may go up and down stairs slowly Call if the following is noted 1. Bleeding, increasing swelling or pain at the access sites. 2. Increasing chest discomfort, especially upon taking a deep breath. 3. Increasing shortness of breath, at rest or with exertion. 4. Undue cough / phlegm 5. Difficulty or pain while swallowing. 6. Pain or change in color in the extremities. 7. Fever, chills, rigors. 8. Increasing headache or neurologic symptoms. 9. Dizziness, fainting, palpitations New medication amiodarone 400 mg by mouth daily for one month then reduce to 200 mg by mouth daily for one month and then 100 mg by mouth daily Discharge Disposition: HOME SELF-CARE
== END 2018-03-28 13:57 | disposition home or self-care (01) ==
LOC: CATHEP 07:05 → 1SOBS 15:05 → CATHEP 03-28 13:57
PROVIDERS: ATTEND Internal Medicine Clinical Cardiac Electrophysiology
DX: I48.1 Persistent atrial fibrillation (principal); I25.5 Ischemic cardiomyopathy; I25.10 Atherosclerotic heart disease of native coronary artery without angina pectoris; J02.9 Acute pharyngitis, unspecified; E11.9 Type 2 diabetes mellitus without complications; E78.2 Mixed hyperlipidemia; I11.0 Hypertensive heart disease with heart failure; I50.22 Chronic systolic (congestive) heart failure; E78.5 Hyperlipidemia, unspecified; Q21.1 Atrial septal defect; G47.33 Obstructive sleep apnea (adult) (pediatric); M19.90 Unspecified osteoarthritis, unspecified site; R56.9 Unspecified convulsions; K21.9 Gastro-esophageal reflux disease without esophagitis; Z95.5 Presence of coronary angioplasty implant and graft; Z79.01 Long term (current) use of anticoagulants; Z79.84 Long term (current) use of oral hypoglycemic drugs; Z79.02 Long term (current) use of antithrombotics/antiplatelets; Z79.899 Other long term (current) drug therapy; Z86.73 Personal history of transient ischemic attack (TIA), and cerebral infarction without residual deficits; Z87.891 Personal history of nicotine dependence
CPT/HCPCS: 85347; 93662; 93613; 93656; 93657; C1769 ×5; C1894 ×3; C1730 ×2; C1759; C1893; C1733; C1766; C1732; J2250; J2720; J1644 ×2; J1940; J2710; J2405; J2001; J3010; J1885; J1170; J1100; J0131; J2370; J0330; J2704; Q9966

== ENCOUNTER → 2019-01-25 | Outpatient (CLI) | payer MEDICARE, OTHER ==
[2019-01-25 19:35] LABS: African American GFR (CKD) 63.6 (60.0-200.0); Anion Gap 10.9 mmol/L (4.00-12.00); BUN/Creat Ratio 17.69 Ratio (12.00-20.00); Calcium 9.7 mg/dL (8.7-10.3); Carbon Dioxide 26.1 mmol/L (21.6-31.8); Magnesium 1.8 mg/dL (1.5-2.4)
== END | disposition home or self-care (01) ==
LOC: LABWHC1 11:58
PROVIDERS: ATTEND Physician Assistant
DX: I48.91 Unspecified atrial fibrillation (principal); I10 Essential (primary) hypertension
CPT/HCPCS: 36415; 80048; 83735; 84443; 84481

== ENCOUNTER 2019-01-29 09:01 | Inpatient (IN) | payer MEDICARE, OTHER ==
[2019-01-29 10:53] VITALS: BMI 37.8
[2019-01-29] MEDS ORDERED: NITROGLYCERIN SL TABS 0.4 MG TAB SUBLINGUAL PRN (12:32)
[2019-01-29 12:33] LABS: Magnesium 1.7 mg/dL (1.6-2.3)
[2019-01-29] MEDS ORDERED: MAGNESIUM SULFATE-D5W PMX 1 GM in DEXTROSE/WATER 1 100ML.BAG IVPB PRN (15:51)
--- NOTE | 2019-01-29 15:58 | P.PN ---
Subjective This is Kimberley Reid PA-C dictating a progress note on this patient The patient was interviewed and examined by me as well as by Dr. Larsen Case discussed with Dr. Larsen and he agrees with the plan of care IMPRESSION / ASSESSMENT: Symptomatic persistent atrial fibrillation, status post pulmonary vein isolation and radiofrequency ablation, failed antiarrhythmic therapy with amiodarone Ischemic cardiomyopathy, EF has dropped over the last few years even though he has had no progression of CAD indicating a nonischemic component as well History of CAD Systolic CHF, class III PLAN: Initiate dofetilide 250 g twice a day Give 1 g of IV mag and start oral magnesium supplement 400 mg daily Continue monitoring EKGs for QT prolongation Monitor telemetry for PVCs and V. tach Daily BMPs and magnesium Continue all other cardiac medications HPI/interval history patient is a 69-year-old male with a past medical history of persistent atrial fibrillation, combined ischemic and nonischemic cardiomyopathy, CHF class III, who presented for management of persistent symptomatic atrial fibrillation. Patient has undergone pulmonary vein isolation and radiofrequency ablation for atrial fibrillation. He has also undergone a cardioversion and was started on amiodarone for his atrial fibrillation and experienced breakthrough atrial fibri llation. He has underlying ischemic cardiomyopathy with a drop in his EF over the last few years despite no progression of CAD seen on cardiac catheterizations indicating a nonischemic component contributing to his worsening systolic function, likely the atrial fibrillation. Patient has been symptomatic with symptoms of shortness of breath and fatigue despite good rate control. Patient seen and examined sitting at the side of the bed. . Currently denies any chest pain, palpitations or shortness of breath. EXAMINATION temperature 97.6F, pulse 74, respirations 18, blood pressure 128/85, oxygen saturation 97% on room air Patient seen and examined sitting up at the side of the bed, in no acute distress Lungs clear to auscultation bilaterally, no wheezing, rhonchi Heart is irregular, no murmurs noted No lower extremity edema No elevated JVD Abdomen soft and nontender REVIEW OF LABS, ECG EKG today shows atrial tachycardia with rate controlled ventricular response, absolute QT 400 ms BUN 13, creatinine 1.08, Creatinine clearance is 73 Potassium 4.0 Magnesium 1.7 Objective - Vital Signs Vital signs: Vital Signs Temp 97.6 F 01/29/19 10:47 Pulse 60 01/29/19 14:54 Resp 16 01/29/19 14:54 BP 119/79 01/29/19 14:54 Pulse Ox 96 01/29/19 14:54 Intake & Output 01/28/19 01/29/19 01/29/19 18:59 06:59 18:59 Intake Total 236 Balance 236 Weight 133.4 kg Intake: Oral 236 - Labs CBC & Chem 7: 01/29/19 11:58 Labs: Abnormal Lab Results - Last 24 Hours (Table) 01/29/19 Range/Units 11:58 Chloride 108 H (98-107) mmol/L Glucose 127 H (74-99) mg/dL
[2019-01-29] MEDS ORDERED: MAGNESIUM SULFATE-D5W PMX 1 GM in DEXTROSE/WATER 1 100ML.BAG IVPB ONE ×2 (17:00→21:30)
[2019-01-29] MEDS: RIVAROXABAN 20 MG TAB PO SCH (17:09)
[2019-01-29] MEDS: FUROSEMIDE 40 MG TAB PO SCH (17:09)
[2019-01-29] MEDS: DOFETILIDE 250 MCG CAP PO SCH (18:02)
[2019-01-29] MEDS: metFORMIN 850 MG TAB PO SCH (20:43)
[2019-01-29] MEDS: TOPIRAMATE 100 MG TAB PO SCH (20:43)
[2019-01-29] MEDS: METOPROLOL SUCCINATE (ER) 100 MG TAB.ER.24H PO SCH (20:43)
[2019-01-29 20:44] LABS: Glucose,Whole Blood 136 mg/dL (75-99)
[2019-01-29] MEDS: CLOPIDOGREL 75 MG TAB PO SCH (20:44)
[2019-01-29] MEDS: FERROUS SULFATE 325 MG TAB PO SCH (20:44)
[2019-01-29] MEDS: ATORVASTATIN 20 MG TAB PO SCH (20:44)
[2019-01-29] MEDS: ACETAMINOPHEN TAB 500 MG TAB PO SCH (20:44)
[2019-01-29] MEDS ORDERED: NON FORMULARY DRUG (Cholecalciferol (Vitamin D3) [Vitamin D3] 2,000 UNIT) PO SCH (21:00)
[2019-01-29] MEDS ORDERED: ASCORBIC ACID 500 MG PO SCH (21:00)
[2019-01-30 01:42] LABS: Glucose,Whole Blood 139 mg/dL (75-99)
[2019-01-30] MEDS: PANTOPRAZOLE 40 MG TABLET PO SCH (06:05)
[2019-01-30] MEDS: DOFETILIDE 250 MCG CAP PO SCH ×2 (06:05→18:00)
[2019-01-30 06:09] LABS: Glucose,Whole Blood 105 mg/dL (75-99)
[2019-01-30 08:18] LABS: Magnesium 2.1 mg/dL (1.6-2.3)
[2019-01-30 08:45] LABS: Potassium 3.9 mmol/L (3.5-5.1)
[2019-01-30] MEDS ORDERED: SPIRONOLACTONE 25 MG TAB PO SCH (09:00)
[2019-01-30] MEDS: TOPIRAMATE 100 MG TAB PO SCH ×2 (09:01→20:43)
[2019-01-30] MEDS: metFORMIN 850 MG TAB PO SCH ×2 (09:01→20:45)
[2019-01-30] MEDS: CHOLECALCIFEROL 1,000 UNIT TAB PO SCH (09:01)
[2019-01-30] MEDS: LISINOPRIL 20 MG TAB PO SCH (09:02)
[2019-01-30] MEDS: METOPROLOL SUCCINATE (ER) 100 MG TAB.ER.24H PO SCH ×2 (09:02→20:44)
[2019-01-30] MEDS: MAGNESIUM OXIDE 400 MG TAB PO SCH (09:02)
[2019-01-30] MEDS: FUROSEMIDE 40 MG TAB PO SCH ×2 (09:02→17:04)
[2019-01-30] MEDS: MULTIVITAMINS, THERA 1 EACH TAB PO SCH (09:02)
[2019-01-30] MEDS: ASCORBIC ACID 500 MG TAB PO SCH (09:02)
[2019-01-30] MEDS: ACETAMINOPHEN TAB 500 MG TAB PO SCH ×2 (09:02→20:43)
--- NOTE | 2019-01-30 12:02 | CDI ---
Documentation Clarification Form Date: 01/30/2019 11:42:00 AM From: Tamanna SniderTUNG, CCDS Admit Date: 01/29/2019 10:26:00 AM Patient Name: Umair An Visit Number: [id number] Discharge Date: ATTENTION: The Clinical Documentation Specialists (CDI) and [facility] Coding Staff appreciate your assistance in clarifying documentation. Please respond to the clarification below the line at the bottom and electronically sign. The CDI & [facility] Coding staff will review the response and follow-up if needed. Please note: Queries are made part of the Legal Health Record. If you have any questions, please contact the author of this message via ITS. Dr. Demar Larsen: Per the 01/29 cardiology progress note: Systolic CHF, class III, nos. History/Risk Factors: CAD, systolic CHF, ischemic cardiomyopathy. Clinical Indicators: Presented for elective RF ablation & cardioversion for atrial fibrillation. VS: HR 74 - 102^, PO 97 - 95 BNP: No BNP this admission PRIYANKA 07/21/2017: Dilated left atrium w/normal appearance left atrial appendage & evidence of spontaneous contrast. Patent foramen ovale with bidirectional flow. Normal left ventricular size with moderate global hypokenesis. EF 40-45%. Chest X Ray 04/15/2017: mild cardiomegaly & new pulmonary congestion compared to old exam & suggestive of mild heart failure. Treatment: po Lasix, IV MagSulf, po Xarelto, po Tikosyn, po Lipitor, po Plavix. In your professional opinion, can you please clarify the acuity and type of CHF if known? Heart Failure ruled out Systolic Heart Failure: o Chronic o Acute on Chronic Diastolic Heart Failure: o Chronic o Acute on Chronic Systolic & Diastolic Heart Failure: o Chronic o Acute on Chronic Heart Failure Unable to Determine Other, please specify (Last Revision: July 2017) Systolic heart failure, chronic MTDD
[2019-01-30 12:23] LABS: Glucose,Whole Blood 150 mg/dL (75-99)
--- NOTE | 2019-01-30 16:47 | P.PN ---
Subjective This is Kimberley Reid PA-C dictating a progress note on this patient The patient was interviewed and examined by me as well as by Dr. Larsen Case discussed with Dr. Larsen and he agrees with the plan of care IMPRESSION / ASSESSMENT: Symptomatic persistent atrial fibrillation, status post pulmonary vein isolation and radiofrequency ablation, failed antiarrhythmic therapy with amiodarone, currently in atrial tachycardia after initiation of dofetilide 250 g twice a day Ischemic cardiomyopathy, EF has dropped over the last few years even though he has had no progression of CAD indicating a nonischemic component as well History of CAD Systolic CHF, chronic, class III, stable from a heart failure symptoms standpoint PLAN: Continue dofetilide 250 g twice a day Anticoagulation with Xarelto Continue oral magnesium supplement 400 mg daily Continue monitoring EKGs for QT prolongation Monitor telemetry for PVCs and V. tach Daily BMPs and magnesium HPI/interval history patient is a 69-year-old male with a past medical history of persistent atrial fibrillation, combined ischemic and nonischemic cardiomyopathy, CHF class III, who presented for management of persistent symptomatic atrial fibrillation. Upon admission he was in atrial tachycardia with rate controlled ventricular response, absolute QT 400 ms. Patient remains in atrial tachycardia after 2 doses of dofetilide 250 g. EKG today shows atrial tachycardia, the cycle length has lengthened when compared to the EKG yesterday. Absolute QT remains around 400 ms. Patient seen and examined sitting in bed. Denies any complaints of dizziness, lightheadedness, palpitations, presyncope or syncope. No chest pain or shortness of breath. EXAMINATION Temperature 98.3F, pulse 65, respirations 16, blood pressure 117/73, oxygen saturation 95% on room air Patient seen and examined sitting in bed, in no acute distress Lungs clear to auscultation bilaterally, no wheezing, rhonchi Heart is irregular, no murmurs noted No lower extremity edema No elevated JVD Abdomen soft and nontender REVIEW OF LABS, ECG Potassium 3.9, BUN 17, creatinine 1.11, magnesium 2.1 Objective - Vital Signs Vital signs: Vital Signs Temp 98.3 F 01/30/19 12:00 Pulse 65 01/30/19 15:38 Resp 16 01/30/19 15:38 BP 117/73 01/30/19 15:38 Pulse Ox 95 01/30/19 15:38 Intake & Output 01/29/19 01/30/19 01/30/19 18:59 06:59 18:59 Intake Total 936 600 Output Total 600 Balance 936 0 Weight 133.4 kg 132.3 kg Intake: Intake, IV Titration 100 Amount Magnesium Sulfate-D5w Pmx 100 1 gm In Dextrose/Water 1 100ml.bag @ 100 mls/hr IVPB ONCE ONE Rx#: [id number] Oral 836 600 Output: Urine 600 Other: Voiding Method Toilet # Voids 1 1 - Labs CBC & Chem 7: 01/30/19 07:26 Labs: Abnormal Lab Results - Last 24 Hours (Table) 01/29/19 01/30/19 01/30/19 Range/Units 20:42 01:29 06:07 Glucose (74-99) mg/dL POC Glucose (mg/dL) 136 H 139 H 105 H (75-99) mg/dL 01/30/19 01/30/19 Range/Units 07:26 12:21 Glucose 115 H (74-99) mg/dL POC Glucose (mg/dL) 150 H (75-99) mg/dL
[2019-01-30 16:50] LABS: Glucose,Whole Blood 184 mg/dL (75-99)
[2019-01-30] MEDS: RIVAROXABAN 20 MG TAB PO SCH (18:00)
[2019-01-30] MEDS: CLOPIDOGREL 75 MG TAB PO SCH (20:44)
[2019-01-30] MEDS: FERROUS SULFATE 325 MG TAB PO SCH (20:44)
[2019-01-30] MEDS: ATORVASTATIN 20 MG TAB PO SCH (20:44)
[2019-01-30 20:50] LABS: Glucose,Whole Blood 138 mg/dL (75-99)
[2019-01-31] MEDS: PANTOPRAZOLE 40 MG TABLET PO SCH (06:05)
[2019-01-31] MEDS: DOFETILIDE 250 MCG CAP PO SCH (06:05)
[2019-01-31 06:14] LABS: Glucose,Whole Blood 97 mg/dL (75-99)
[2019-01-31 07:58] LABS: Potassium 4.2 mmol/L (3.5-5.1)
[2019-01-31] MEDS: SPIRONOLACTONE 25 MG TAB PO SCH (08:05)
[2019-01-31] MEDS: FUROSEMIDE 40 MG TAB PO SCH (08:05)
[2019-01-31] MEDS: ASCORBIC ACID 500 MG TAB PO SCH (08:05)
[2019-01-31] MEDS: CHOLECALCIFEROL 1,000 UNIT TAB PO SCH (08:05)
[2019-01-31] MEDS: MULTIVITAMINS, THERA 1 EACH TAB PO SCH (08:06)
[2019-01-31] MEDS: METOPROLOL SUCCINATE (ER) 100 MG TAB.ER.24H PO SCH ×2 (08:06→20:08)
[2019-01-31] MEDS: TOPIRAMATE 100 MG TAB PO SCH ×2 (08:06→20:08)
[2019-01-31] MEDS: MAGNESIUM OXIDE 400 MG TAB PO SCH (08:06)
[2019-01-31] MEDS: LISINOPRIL 20 MG TAB PO SCH (08:06)
[2019-01-31] MEDS: ACETAMINOPHEN TAB 500 MG TAB PO SCH ×2 (08:06→20:07)
[2019-01-31] MEDS: metFORMIN 850 MG TAB PO SCH ×2 (08:07→20:07)
[2019-01-31] MEDS ORDERED: PROPOFOL 10 MG/ML 20 ML VIAL IV ONE (09:11)
[2019-01-31] MEDS ORDERED: SODIUM CHLORIDE 0.9% 500 ML 500 ML IV ONE (09:39)
--- NOTE | 2019-01-31 09:45 | P.PCN ---
Preoperative Diagnosis: Procedure Electrical cardioversion on dofetilide 250 g twice daily Potassium 4.2 BUN 21 creatinine 1.28, magnesium 2.0 Rise in creatinine noted after adding Aldactone Procedure details Under anesthesia, a 200 J biphasic shock was delivered in the AP configuration. Patient converted to sinus rhythm Occasional PVCs no bradycardia Follow-up twelve-lead ECG shows sinus rhythm AR interval mildly prolonged at 208 ms QT interval 480 ms Impression Increment in absolute QT interval by 20% from baseline Plan Reduce dose of dofetilide to 125 g twice daily Continue telemetry monitoring Reduce Lasix to 40 mg once daily Daily BMP and magnesium Will watch heart rates and decide regarding dose of metoprolol succinate. Presently on 100 mg twice daily of succinate metoprolol
[2019-01-31 12:04] LABS: Glucose,Whole Blood 172 mg/dL (75-99)
[2019-01-31 17:04] LABS: Glucose,Whole Blood 140 mg/dL (75-99)
[2019-01-31] MEDS: DOFETILIDE 125 MCG CAP PO SCH (17:59)
[2019-01-31] MEDS: RIVAROXABAN 20 MG TAB PO SCH (17:59)
[2019-01-31] MEDS: CLOPIDOGREL 75 MG TAB PO SCH (20:07)
[2019-01-31] MEDS: ATORVASTATIN 20 MG TAB PO SCH (20:07)
[2019-01-31] MEDS: FERROUS SULFATE 325 MG TAB PO SCH (20:08)
[2019-02-01] MEDS: PANTOPRAZOLE 40 MG TABLET PO SCH (06:03)
[2019-02-01] MEDS: DOFETILIDE 125 MCG CAP PO SCH ×2 (06:03→17:59)
[2019-02-01 06:44] LABS: Glucose,Whole Blood 99 mg/dL (75-99)
[2019-02-01 07:29] LABS: Magnesium 2.1 mg/dL (1.6-2.3); Potassium 4.2 mmol/L (3.5-5.1)
[2019-02-01] MEDS: ASCORBIC ACID 500 MG TAB PO SCH (08:36)
[2019-02-01] MEDS: TOPIRAMATE 100 MG TAB PO SCH ×2 (08:36→20:11)
[2019-02-01] MEDS: ACETAMINOPHEN TAB 500 MG TAB PO SCH ×2 (08:36→20:10)
[2019-02-01] MEDS: METOPROLOL SUCCINATE (ER) 100 MG TAB.ER.24H PO SCH ×2 (08:36→21:39)
[2019-02-01] MEDS: CHOLECALCIFEROL 1,000 UNIT TAB PO SCH (08:36)
[2019-02-01] MEDS: MULTIVITAMINS, THERA 1 EACH TAB PO SCH (08:36)
[2019-02-01] MEDS: LISINOPRIL 20 MG TAB PO SCH (08:36)
[2019-02-01] MEDS: FUROSEMIDE 40 MG TAB PO SCH (08:36)
[2019-02-01] MEDS: MAGNESIUM OXIDE 400 MG TAB PO SCH (08:37)
[2019-02-01] MEDS: SPIRONOLACTONE 25 MG TAB PO SCH (08:43)
--- NOTE | 2019-02-01 11:12 | P.PN ---
Subjective This is Kimberley Reid PA-C dictating a progress note on this patient The patient was interviewed and examined by me as well as by Dr. Larsen Case discussed with Dr. Larsen and he agrees with the plan of care IMPRESSION / ASSESSMENT: Symptomatic persistent atrial fibrillation, status post electrical cardioversion, currently in sinus rhythm One run of nonsustained monomorphic ventricular tachycardia, his dose of dofetilide was reduced to 125 g Ischemic cardiomyopathy History of CAD Systolic CHF, chronic, class III, stable from a heart failure symptoms standpoint PLAN: Continue dofetilide 125 g twice daily and monitor telemetry for further episodes of ventricular tachycardia Continue metoprolol 100 mg twice a day, monitor for bradycardia Continue spironolactone 50 mg daily Anticoagulation with Xarelto Continue oral magnesium supplement 400 mg daily Continue monitoring EKGs for QT prolongation Daily BMPs and magnesium HPI/interval history patient is a 69-year-old male with a past medical history of persistent atrial fibrillation, combined ischemic and nonischemic cardiomyopathy, CHF class III, who presented for management of persistent symptomatic atrial fibrillation. Upon admission he was in atrial tachycardia with rate controlled ventricular response, absolute QT 400 ms. patient was started on dofetilide 250 g twice daily. Yesterday he underwent a successful electrical cardioversion and subsequent EKG showed QT 480 ms so his dose of dofetilide was reduced to 125 g. Last night he had one run of nonsustained monomorphic ventricular tachycardia which occurred around 7:30 PM. Patient seen and examined sitting in bed. Denies any complaints of dizziness, lightheadedness, palpitations, presyncope or syncope. No chest pain or shortness of breath. EXAMINATION Temperature 98.7F, pulse 66, respirations 16, blood pressure 122/71, oxygen saturation 96% on room air Patient seen and examined sitting in bed, in no acute distress Lungs clear to auscultation bilaterally, no wheezing, rhonchi Heart is regular no murmurs noted No lower extremity edema No elevated JVD Abdomen soft and nontender REVIEW OF LABS, ECG Sodium 141, potassium 4.2, BUN 26, creatinine 1.23, magnesium 2.1 Objective - Vital Signs Vital signs: Vital Signs Temp 98.3 F 02/01/19 08:45 Pulse 66 02/01/19 08:45 Resp 18 02/01/19 08:45 BP 122/71 02/01/19 08:45 Pulse Ox 96 02/01/19 08:45 Intake & Output 01/31/19 02/01/19 02/01/19 18:59 06:59 18:59 Intake Total 240 360 Output Total 400 Balance -160 360 Weight 132.5 kg Intake: Oral 240 360 Output: Urine 400 Other: Voiding Method Toilet Toilet Toilet # Voids 1 1 2 - Labs CBC & Chem 7: 02/01/19 06:00 Labs: Abnormal Lab Results - Last 24 Hours (Table) 01/31/19 01/31/19 02/01/19 Range/Units 12:02 16:51 06:00 BUN 26 H (9-20) mg/dL POC Glucose (mg/dL) 172 H 140 H (75-99) mg/dL
[2019-02-01] MEDS: metFORMIN 850 MG TAB PO SCH ×2 (11:15→21:39)
[2019-02-01 12:10] LABS: Glucose,Whole Blood 135 mg/dL (75-99)
[2019-02-01 17:09] LABS: Glucose,Whole Blood 112 mg/dL (75-99)
[2019-02-01] MEDS: RIVAROXABAN 20 MG TAB PO SCH (17:59)
[2019-02-01] MEDS: ATORVASTATIN 20 MG TAB PO SCH (20:10)
[2019-02-01] MEDS: FERROUS SULFATE 325 MG TAB PO SCH (20:10)
[2019-02-01] MEDS: CLOPIDOGREL 75 MG TAB PO SCH (20:10)
[2019-02-01 20:39] LABS: Glucose,Whole Blood 120 mg/dL (75-99)
[2019-02-02 06:10] LABS: Glucose,Whole Blood 133 mg/dL (75-99)
[2019-02-02 06:39] VITALS: RESP 17
[2019-02-02] MEDS: PANTOPRAZOLE 40 MG TABLET PO SCH (06:53)
[2019-02-02] MEDS: DOFETILIDE 125 MCG CAP PO SCH (06:53)
[2019-02-02] MEDS: metFORMIN 850 MG TAB PO SCH (07:37)
[2019-02-02] MEDS: CHOLECALCIFEROL 1,000 UNIT TAB PO SCH (07:37)
[2019-02-02] MEDS: SPIRONOLACTONE 25 MG TAB PO SCH (07:38)
[2019-02-02] MEDS: TOPIRAMATE 100 MG TAB PO SCH (07:38)
[2019-02-02] MEDS: METOPROLOL SUCCINATE (ER) 100 MG TAB.ER.24H PO SCH (07:38)
[2019-02-02] MEDS: ASCORBIC ACID 500 MG TAB PO SCH (07:38)
[2019-02-02] MEDS: MULTIVITAMINS, THERA 1 EACH TAB PO SCH (07:38)
[2019-02-02] MEDS: MAGNESIUM OXIDE 400 MG TAB PO SCH (07:38)
[2019-02-02] MEDS: LISINOPRIL 20 MG TAB PO SCH (07:39)
[2019-02-02] MEDS: ACETAMINOPHEN TAB 500 MG TAB PO SCH (07:39)
[2019-02-02] MEDS: FUROSEMIDE 40 MG TAB PO SCH (07:39)
[2019-02-02 07:45] LABS: Calcium 8.9 mg/dL (8.4-10.2); Magnesium 2.1 mg/dL (1.6-2.3); Potassium 4.6 mmol/L (3.5-5.1)
[2019-02-02 11:50] LABS: Glucose,Whole Blood 107 mg/dL (75-99)
[2019-02-02 12:22] VITALS: BP 105/63; PULSE 64; TEMP 98.3
[2019-02-02] MEDS ORDERED: SODIUM CHLORIDE 0.9% 500 ML 250 ML IV ONE (12:33)
--- NOTE | 2019-02-02 12:36 | P.DS ---
Providers Date of admission: 01/29/19 10:26 Attending physician: Demar Larsen Primary care physician: Karuna Melvin [facility] Course: Patient was resting comfortably in bed. No dizziness lightheadedness 2 palpitations No more episode of nonsustained ventricular tachycardia on 125 g twice daily of dofetilide He has had PVCs but the post PVC QT interval is similar to the pre-PVC QT interval On examination his pulse rate is in the 60s he is afebrile 98.3F Blood pressure 110/61 mmHg normal respirations Normal heart sounds normal S1 normal S2 no murmurs or gallops or rub Breath sounds are clear no rhonchi no crackles Abdomen soft Extremities warm Had a very detailed discussion with the patient regarding the dose and dose of dofetilide. A complete dofetilide education was provided Written material was provided and I went over this in great detail Specific mention of drug interactions and how to deal with this Impression Atrial fibrillation, symptomatic, persistent Patient admitted for any cessation of dofetilide Successful electrical cardioversion in-house Initially be started at 250 g twice daily of dofetilide and subsequently on account of QT prolongation, the dose was reduced There was an episode of nonsustained ventricular tachycardia but this has not recurred on the lower dose of dofetilide Plan Stop hydrochlorothiazide completely Increase Aldactone to 50 mrem by mouth daily Add mag oxide 400 mg by mouth daily Continue all other medications including Lasix and metformin Today's 12-lead ECG shows sinus rhythm with a QT interval, absolute of less than 480 ms Today's labs are reviewed and sodium 140, potassium 4.6, BUN 32 and creatinine 1.33 Suggest stopping Lasix Reduce metoprolol to 100 mg once daily 2 50 mL of normal saline May go home thereafter Follow-up in the office in a week Patient Condition at Discharge: Stable Plan - Discharge Summary Discharge Rx Participant: Yes New Discharge Prescriptions: No Action Rivaroxaban [Xarelto] 20 mg PO W/SUPPER Topiramate 150 mg PO BID metFORMIN HCL [Glucophage] 850 mg PO BID Clopidogrel [Plavix] 75 mg PO HS Omeprazole 20 mg PO DAILY #30 cap Cholecalciferol (Vitamin D3) [Vitamin D3] 2,000 unit PO HS Lisinopril [Zestril] 20 mg PO DAILY Ferrous Sulfate [Iron (65 MG Elemental)] 325 mg PO HS Ascorbic Acid [Vitamin C] 500 mg PO HS Acetaminophen [Tylenol Extra Strength] 1,000 mg PO BID Multivit-Min/FA/Lycopen/Lutein [Centrum Silver Tablet] 1 tab PO DAILY Nitroglycerin Sl Tabs [Nitrostat] 0.4 mg SUBLINGUAL Q5M PRN PRN Reason: Chest Pain Spironolactone [Aldactone] 25 mg PO DAILY Furosemide [Lasix] 40 mg PO BID Atorvastatin [Lipitor] 20 mg PO HS Metoprolol Succinate [Toprol XL] 100 mg PO BID Discharge Medication List Rivaroxaban [Xarelto] 20 mg PO W/SUPPER 07/09/14 [History] Topiramate 150 mg PO BID 07/09/14 [History] metFORMIN HCL [Glucophage] 850 mg PO BID 07/09/14 [History] Clopidogrel [Plavix] 75 mg PO HS 05/13/16 [History] Omeprazole 20 mg PO DAILY #30 cap 05/17/16 [Rx] Acetaminophen [Tylenol Extra Strength] 1,000 mg PO BID 04/15/17 [History] Ascorbic Acid [Vitamin C] 500 mg PO HS 04/15/17 [History] Cholecalciferol (Vitamin D3) [Vitamin D3] 2,000 unit PO HS 04/15/17 [History] Ferrous Sulfate [Iron (65 MG Elemental)] 325 mg PO HS 04/15/17 [History] Lisinopril [Zestril] 20 mg PO DAILY 04/15/17 [History] Multivit-Min/FA/Lycopen/Lutein [Centrum Silver Tablet] 1 tab PO DAILY 05/11/17 [History] Furosemide [Lasix] 40 mg PO BID 03/22/18 [History] Nitroglycerin Sl Tabs [Nitrostat] 0.4 mg SUBLINGUAL Q5M PRN 03/22/18 [History] Spironolactone [Aldactone] 25 mg PO DAILY 03/22/18 [History] Atorvastatin [Lipitor] 20 mg PO HS 01/29/19 [History] Metoprolol Succinate [Toprol XL] 100 mg PO BID 01/29/19 [History] Follow up Appointment(s)/Referral(s): Demar Larsen MD [STAFF PHYSICIAN] - 1 Week (3 mon) Sara Young MD [STAFF PHYSICIAN] - 2 Weeks Activity/Diet/Wound Care/Special Instructions: Pts new Tikosyn script faxed to [facility] Pts 3 mo supply of Tikosyn is filled [facility] pharmacy, copay is $12
[2019-02-02 17:01] LABS: Glucose,Whole Blood 103 mg/dL (75-99)
--- NOTE | 2019-02-02 17:07 | CDI ---
Documentation Clarification Form Date: 02/02/2019 4:59:07 PM From: Gabby Montemayor RN CCDS Admit Date: 01/29/2019 10:26:00 AM Patient Name: Umair An Visit Number: [id number] ATTENTION: The Clinical Documentation Specialists (CDI) and [facility] Coding Staff appreciate your assistance in clarifying documentation. Please respond to the clarification below the line at the bottom and electronically sign. The CDI & [facility] Coding staff will review the response and follow-up if needed. Please note: Queries are made part of the Legal Health Record. If you have any questions, please contact the author of this message via ITS. Dr. Demar Larsen An Increasing BUN and Creatinine have been noted with a decreasing GFR History/Risk Factors: 01/25/19 Patients baseline BUN/CR/GFR: 23/1.3/ 54.9 Ischemic cardiomyopathy, systolic CHF class 3 Clinical Indicators: Current BUN: /// Cr: 1.08/1.11/1.28/1.23/1.33 GFR: 69/67/56/59/54 02/02 D/C Summary: "Patient admitted for any cessation of dofetilide Successful electrical cardioversion in-house Initially be started at 250 g twice daily of dofetilide and subsequently on account of QT prolongation, the dose was reduced." Treatment: Monitor labs In order to capture the severity of condition, please clarify if the condition signifies: Acute renal failure, Please specify etiology (if known): Cortical Necrosis Medullary Necrosis Tubular Necrosis Acute kidney injury Acute on chronic renal failure CKD Stage 1 GFR >90 CKD Stage 2 GFR 60-89 CKD Stage 3 GFR 30-59 CKD Stage 4 GFR 15-29 CKD Stage 5 GFR <15 Chronic renal failure/Chronic Kidney disease (CKD) please stage (if known): CKD Stage 1 GFR >90 CKD Stage 2 GFR 60-89 CKD Stage 3 GFR 30-59 CKD Stage 4 GFR 15-29 CKD Stage 5 GFR <15 ESRD Other, please specify Unable to determine (Last Revision: July 2017) Acute kidney injury, 3-D knee, diuretic induced Unable to determine any further MTDD
[2019-02-03] MEDS ORDERED: METOPROLOL SUCCINATE (ER) 100 MG TAB.ER.24H PO SCH (09:00)
== END 2019-02-02 17:17 | disposition home or self-care (01) | DRG 309 ==
LOC: 1SOBS 10:26 → 3SCARD 14:17
PROVIDERS: ADMIT Internal Medicine Clinical Cardiac Electrophysiology; ATTEND Internal Medicine Clinical Cardiac Electrophysiology
PROC: 5A2204Z Restoration of Cardiac Rhythm, Single (ICD-10-PCS; principal; 2019-01-29)
DX: I48.19 Other persistent atrial fibrillation (principal); I50.22 Chronic systolic (congestive) heart failure; N17.9 Acute kidney failure, unspecified; I25.10 Atherosclerotic heart disease of native coronary artery without angina pectoris; I25.5 Ischemic cardiomyopathy; I47.1 Supraventricular tachycardia; I47.2 Ventricular tachycardia; E11.9 Type 2 diabetes mellitus without complications; G47.33 Obstructive sleep apnea (adult) (pediatric); I11.0 Hypertensive heart disease with heart failure; Z95.5 Presence of coronary angioplasty implant and graft; Z79.01 Long term (current) use of anticoagulants; Z79.899 Other long term (current) drug therapy; Z79.84 Long term (current) use of oral hypoglycemic drugs; E78.2 Mixed hyperlipidemia; N14.1 Nephropathy induced by other drugs, medicaments and biological substances; T50.2X5A Adverse effect of carbonic-anhydrase inhibitors, benzothiadiazides and other diuretics, initial encounter
CPT/HCPCS: 80048; 83735; 85610; 92960

== ENCOUNTER → 2019-02-15 | Outpatient (CLI) | payer MEDICARE, OTHER ==
[2019-02-15 19:42] LABS: African American GFR (CKD) 99.2 (60.0-200.0); Anion Gap 4.7 mmol/L (4.00-12.00); BUN/Creat Ratio 14.44 Ratio (12.00-20.00); Calcium 9.5 mg/dL (8.7-10.3); Carbon Dioxide 25.3 mmol/L (21.6-31.8); Magnesium 1.6 mg/dL (1.5-2.4); Potassium 5.3 mmol/L (3.5-5.5)
== END | disposition home or self-care (01) ==
LOC: LABWHC1 11:32
PROVIDERS: ATTEND Nurse Practitioner Adult Health
DX: I48.19 Other persistent atrial fibrillation (principal); I25.5 Ischemic cardiomyopathy
CPT/HCPCS: 36415; 80048; 83735

== ENCOUNTER 2020-08-28 10:18 | Day surgery (SDC) | payer MEDICARE, OTHER ==
[2020-08-25 12:42] VITALS: BMI 39.2
[~2020-08-28 10:18] MED LIST changes: -HYDROmorphone 1 MG/ML 1 ML SYRINGE IVP PRN; -LACTATED RINGERS 1,000 ML IV SCH; -MIDAZOLAM (PF) 2 MG/2 ML VIAL IV PRN; +SODIUM CHLORIDE 0.9% 1,000 ML IV SCH
[2020-08-28] MEDS ORDERED: SODIUM CHLORIDE 0.9% 500 ML 500 ML IV ONE (10:40)
[2020-08-28 10:49] VITALS: RESP 16; TEMP 98.9
[2020-08-28 10:56] LABS: Glucose,Whole Blood 118 mg/dL (75-99)
[2020-08-28 11:26] LABS: African American GFR (CKD) >90 (>60 ml/min/1.73 sqM); Anion Gap 11 mmol/L; Blood Urea Nitrogen 20 mg/dL (9-20); Calcium 9.3 mg/dL (8.4-10.2); Carbon Dioxide 22 mmol/L (22-30); Chloride 113 mmol/L (98-107); Glucose 122 mg/dL (74-99); Non-African American GFR(CKD) 81 (>60 ml/min/1.73 sqM); Sodium 146 mmol/L (137-145)
[2020-08-28 11:37] LABS: Potassium 4.5 mmol/L (3.5-5.1)
[2020-08-28] MEDS ORDERED: LIDOCAINE 1% INJ 10MG/ML (20 ML MDV) ONE (11:50)
[2020-08-28] MEDS ORDERED: PROPOFOL 10 MG/ML 20 ML VIAL IV ONE (11:50)
[2020-08-28] MEDS ORDERED: NITROGLYCERIN SL TABS 0.4 MG TAB SUBLINGUAL PRN (12:34)
[2020-08-28] MEDS ORDERED: SODIUM CHLORIDE 0.9% 1,000 ML IV SCH (12:45)
[2020-08-28] MEDS ORDERED: SODIUM CHLORIDE 0.9% 1,000 ML IV ONE (12:55)
--- NOTE | 2020-08-28 13:29 | ECHOT ---
TRANSESOPHAGEAL ECHOCARDIOGRAM INDICATION: Evaluation left atrial appendage. PROCEDURE: After explaining the procedure to the patient, its risks and the complications, his blood pressure, heart rate, O2 saturation were monitored. The throat was sprayed with Cetacaine. He received sedation per Anesthesia Department. The probe was introduced in the esophagus without difficulties. Images were obtained. Following that the probe, there was no immediate complication. FINDINGS: Left atrial size is dilated. Left atrial appendage is normal. Spontaneous contrast was noted. Left ventricular size is normal. There is evidence of global hypokinesis, estimated ejection fraction 25% to 30%. The aortic valve revealed mild fibrocalcific change of the aortic cusp with preserved opening. Mitral valve appears to be normal. Tricuspid valve is normal. Descending thoracic aorta revealed mild atherosclerotic changes. No pericardial effusion was noted. Contrast bubble study revealed no evidence of shunting across the interatrial septum. Doppler, pulse wave and color Doppler obtained and revealed a mild to moderate mitral with mild tricuspid regurgitation. There was evidence of [id number] shunting through a stretched PFO with no reversal. CONCLUSION: 1. Dilated left atrium with spontaneous contrast and normal appearance left atrial appendage. 2. Severe global hypokinesis of the left ventricle. 3. Mild to moderate mitral with mild tricuspid regurgitation. 4. Stretched PFO with [id number] shunting and no evidence of reversal of flow. MMODL / IJN: [id number] /
[2020-08-28 14:33] VITALS: BP 144/89; PULSE 80
[2020-08-28] MEDS ORDERED: RIVAROXABAN 20 MG TAB PO SCH (17:30)
--- NOTE | 2020-08-28 20:54 | PCN ---
PROCEDURE NOTE INDICATION: Atrial tachycardia. PROCEDURE DESCRIPTION: After explaining the procedure to the patient, its risks and complications, his blood pressure, heart rate and oxygen saturation were monitored. After obtaining a sedated state and performing transesophageal echocardiogram, a synchronized biphasic cardioversion using 300 joules was performed with restorationist of normal sinus rhythm. There was no immediate complication. MICKI / NICOLEN: [id number] /
[2020-08-28] MEDS ORDERED: ATORVASTATIN 40 MG TAB PO SCH (21:00)
[2020-08-28] MEDS ORDERED: MAGNESIUM OXIDE 400 MG PO SCH (21:00)
[2020-08-28] MEDS ORDERED: metFORMIN 850 MG TAB PO SCH (21:00)
[2020-08-28] MEDS ORDERED: DOFETILIDE 125 MCG CAP PO SCH (21:00)
[2020-08-28] MEDS ORDERED: ACETAMINOPHEN TAB 500 MG TAB PO SCH (21:00)
[2020-08-28] MEDS ORDERED: FERROUS SULFATE 325 MG TAB PO SCH (21:00)
[2020-08-28] MEDS ORDERED: CLOPIDOGREL 75 MG TAB PO SCH (21:00)
[2020-08-28] MEDS ORDERED: TOPIRAMATE 50 MG PO SCH (21:00)
[2020-08-28] MEDS ORDERED: ASCORBIC ACID 500 MG TAB PO SCH (21:00)
[2020-08-28] MEDS ORDERED: NON FORMULARY DRUG (Cholecalciferol (Vitamin D3) [Vitamin D3] 2,000 UNIT Capsule) PO SCH (21:00)
[2020-08-29] MEDS ORDERED: NON FORMULARY DRUG (Omeprazole [Omeprazole] 20 MG Capsule.Dr) PO SCH (09:00)
[2020-08-29] MEDS ORDERED: METOPROLOL SUCCINATE (ER) 100 MG TAB.ER.24H PO SCH (09:00)
[2020-08-29] MEDS ORDERED: NON FORMULARY DRUG (Spironolactone [Spironolactone] 50 MG Tablet) PO SCH (09:00)
[2020-08-29] MEDS ORDERED: NON FORMULARY DRUG (Multivit-Min/Fa/Lycopen/Lutein [Centrum Silver Tablet] 1 EACH Tablet) PO SCH (09:00)
[2020-08-29] MEDS ORDERED: lisinopriL 20 MG TAB PO SCH (09:00)
== END 2020-08-28 14:33 | disposition home or self-care (01) ==
LOC: CATHCVL 10:18
PROVIDERS: ATTEND Internal Medicine Interventional Cardiology
DX: Q21.1 Atrial septal defect (principal); I25.10 Atherosclerotic heart disease of native coronary artery without angina pectoris; I48.91 Unspecified atrial fibrillation; G47.33 Obstructive sleep apnea (adult) (pediatric); I08.1 Rheumatic disorders of both mitral and tricuspid valves; E78.5 Hyperlipidemia, unspecified; I10 Essential (primary) hypertension; E11.9 Type 2 diabetes mellitus without complications; F17.210 Nicotine dependence, cigarettes, uncomplicated; Z79.01 Long term (current) use of anticoagulants; Z95.5 Presence of coronary angioplasty implant and graft; R56.9 Unspecified convulsions; K21.9 Gastro-esophageal reflux disease without esophagitis; Z79.02 Long term (current) use of antithrombotics/antiplatelets; Z86.73 Personal history of transient ischemic attack (TIA), and cerebral infarction without residual deficits; Z79.899 Other long term (current) drug therapy; Z79.84 Long term (current) use of oral hypoglycemic drugs
CPT/HCPCS: 93312; 93320; 93325; 92960; 80048; 87635; J2001; J2704

== ENCOUNTER 2020-11-16 17:32 | Emergency (ER) | payer MEDICARE, OTHER ==
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
[2020-11-16 17:46] VITALS: TEMP 98.1
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
[2020-11-16 20:09] VITALS: BP 139/67; PULSE 71; RESP 16
== END 2020-11-16 20:48 | disposition home or self-care (01) ==
LOC: EC 17:32
DX: S16.1XXA Strain of muscle, fascia and tendon at neck level, initial encounter (principal); S39.012A Strain of muscle, fascia and tendon of lower back, initial encounter; E11.9 Type 2 diabetes mellitus without complications; I11.0 Hypertensive heart disease with heart failure; I50.9 Heart failure, unspecified; I48.91 Unspecified atrial fibrillation; I25.10 Atherosclerotic heart disease of native coronary artery without angina pectoris; G40.909 Epilepsy, unspecified, not intractable, without status epilepticus; E78.5 Hyperlipidemia, unspecified; M19.90 Unspecified osteoarthritis, unspecified site; Z79.01 Long term (current) use of anticoagulants; Z79.02 Long term (current) use of antithrombotics/antiplatelets; Z79.84 Long term (current) use of oral hypoglycemic drugs; Z79.899 Other long term (current) drug therapy; Z86.73 Personal history of transient ischemic attack (TIA), and cerebral infarction without residual deficits; Z87.891 Personal history of nicotine dependence; V89.2XXA Person injured in unspecified motor-vehicle accident, traffic, initial encounter; Y92.410 Unspecified street and highway as the place of occurrence of the external cause
CPT/HCPCS: 71045; 72125; 72128; 72131; 99285

== ENCOUNTER → 2020-11-29 | Outpatient (CLI) | payer OTHER ==
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
== END | disposition home or self-care (01) ==
LOC: RADXRMAIN 12:01
PROVIDERS: ATTEND Nurse Practitioner Family
DX: R06.02 Shortness of breath (principal)
CPT/HCPCS: 71046

== ENCOUNTER → 2021-01-05 | Outpatient (CLI) | payer OTHER, MEDICARE ==
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
== END | disposition home or self-care (01) ==
LOC: RADMRIMAIN 17:56
PROVIDERS: ATTEND Family Medicine
DX: M51.27 Other intervertebral disc displacement, lumbosacral region (principal); M47.816 Spondylosis without myelopathy or radiculopathy, lumbar region; M99.73 Connective tissue and disc stenosis of intervertebral foramina of lumbar region
CPT/HCPCS: 72148

== ENCOUNTER → 2021-05-28 | Outpatient (CLI) | payer MEDICARE, OTHER ==
[2021-05-28 20:10] LABS: HCT 44.2 % (39.6-50.0); HGB 13.7 g/dL (13.0-17.0); MCV 96.9 fL (80.0-97.0); NRBC Per 100 WBC 0 /100 WBCS (0.0-0.0); Platelet Count 183 X 10*3/uL (140-440); RBC 4.56 X 10*6/uL (4.40-5.60); RDW 13.1 % (11.5-14.5)
[2021-05-28 20:28] LABS: African American GFR (CKD) 76.8 (60.0-200.0); Anion Gap 11.6 mmol/L (10.00-18.00); Blood Urea Nitrogen 21.5 mg/dL (9.0-27.0); Carbon Dioxide 22.4 mmol/L (20.0-27.5); Non-African American GFR(CKD) 66.2 (60.0-200.0); Potassium 4.5 mmol/L (3.5-5.5)
[2021-05-29 13:09] LABS: Coronavirus SARS CoV-2 Not Detected (Not Detected)
== END | disposition home or self-care (01) ==
LOC: LABPAT 11:54
PROVIDERS: ATTEND Internal Medicine Clinical Cardiac Electrophysiology
DX: Z01.812 Encounter for preprocedural laboratory examination (principal); Z20.822 Contact with and (suspected) exposure to COVID-19; I47.1 Supraventricular tachycardia
CPT/HCPCS: 80051; 82565; 84520; 85027; U0003; U0005

== ENCOUNTER 2021-06-30 08:14 | Inpatient (IN) | payer MEDICARE, OTHER ==
[2021-06-26 11:37] VITALS: BMI 38.9
[~2021-06-30 08:14] MED LIST changes: +LACTATED RINGERS 1,000 ML IV SCH
[2021-06-30 08:49] LABS: Glucose,Whole Blood 117 mg/dL (75-99)
[2021-06-30 08:57] LABS: Basophils # (A) 0.1 k/uL (0-0.2); Basophils % (A) 1 %; Eosinophils # (A) 0.3 k/uL (0-0.7); Eosinophils % (A) 3 %; HCT 49.6 % (39.0-53.0); HGB 15.7 gm/dL (13.0-17.5); Lymphocytes # (A) 2.2 k/uL (1.0-4.8); Lymphocytes % (A) 20 %; MCH 31.5 pg (25.0-35.0); MCHC 31.7 g/dL (31.0-37.0); MCV 99.3 fL (80.0-100.0); Mean Platelet Volume 7.5; Monocytes # (A) 0.6 k/uL (0-1.0); Monocytes % (A) 6 %; Neutrophils # (A) 7.5 k/uL (1.3-7.7); Neutrophils % (A) 69 %; Platelet Count 225 k/uL (150-450); RDW 13.4 % (11.5-15.5); WBC 10.8 k/uL (3.8-10.6)
--- NOTE | 2021-06-30 10:46 | P.HPCAR ---
History of Present Illness This is Dr. Larsen dictating an H/P on this patient The patient was interviewed and examined IMPRESSION / ASSESSMENT: Persistent atrial fibrillation despite A. fib ablation and dofetilide/atrial tachycardia Very dilated left atrium A. fib ablation the past with PVI, linear ablation was septum, left atrial roof and the mitral isthmus Cardio myopathy, nonischemic PLAN: EP study and atrial tachycardia mapping Pulmonary vein isolation of the right inferior pulmonary vein HPI Patient complains of shortness of breath on exertion titers fatigue He remains in persistent atrial tachycardia with resting heart rates of about 100 beats a minute ROS: No fever chills or rigors, no cough, phlegm or expectoration, no nausea, vomiting or diarrhea, no hematuria, dysuria, no musculoskeletal complaints, no strokes or seizures, no skin lesions. EXAMINATION: Pulse rate 100 afebrile 98.7F Respirations 14-16 no respiratory distress Blood pressure 105/63 mmHg No orthopnea Clear lungs no rhonchi Heart sounds tachycardic no S3 gallop Bilateral lower extremity edema REVIEW OF LABS, ECG & MEDICAL DATA Twelve-lead EKG shows an atrial tachycardia with clear P waves with EP-P cycle length of about 300 ms Upright in V1 Upright in the inferior leads White count 10,000, hemoglobin 15.7 Platelet count 225,000 Sodium 141, potassium 4.0, BUN 16 and creatinine 1.0 Physical Exam Vitals: Vital Signs Temp Pulse Resp BP Pulse Ox 06/30/21 08:56 98.7 F 101 H 16 151/90 91 L Intake and Output 06/29/21 06/30/21 06/30/21 22:59 06:59 14:59 Other: Weight 137.1 kg Past Medical History Past Medical History: Atrial Fibrillation, Coronary Artery Disease (CAD), Heart Failure, CVA/TIA, Diabetes Mellitus, Hearing Disorder / Deafness, Hyperlipidemia, Hypertension, Memory Impairment, Osteoarthritis (OA), Pneumonia, Seizure Disorder, Sleep Apnea/CPAP/BIPAP Additional Past Medical History / Comment(s): CVA 12/2012. Hearing aids. Heel spurs. Short term memory loss, hx fall w/ seizure; Last seizure about 2010 est; hx slight tremors. ED, problems emptying bladder on occ. Has tears in bilat meniscus. Uses CPAP. Some difficulty with speech since CVA. See Dr. Giron's H & P. History of Any Multi-Drug Resistant Organisms: None Reported Past Surgical History: Heart Catheterization, Heart Catheterization With Stent, Orthopedic Surgery Additional Past Surgical History / Comment(s): Colonoscopy w/ exc 1 benign polyp, Rhinoplasty, Torn Meniscus Bilat Knees - RT X2, Lt X1 w/ scopes, LT Shoulder AC Joint. Cardioversion, PRIYANKA. Past Anesthesia/Blood Transfusion Reactions: No Reported Reaction Additional Past Anesthesia/Blood Transfusion Reaction / Comment(s): Claustrophobia Date of Last Stent Placement:: 07-10-14 Smoking Status: Former smoker - Past Family History Father Additional Family Medical History / Comment(s): EMPHYSEMA Mother Family Medical History: No Reported History Additional Family Medical History / Comment(s): HEAVY SMOKER, HEART STENTS. Physical Examination Vital Signs Temp Pulse Resp BP Pulse Ox 06/30/21 08:56 98.7 F 101 H 16 151/90 91 L Intake and Output 06/29/21 06/30/21 06/30/21 22:59 06:59 14:59 Other: Weight 137.1 kg Results 06/30/21 08:35 06/30/21 08:35 CBC 06/30/21 Range/Units 08:35 WBC 10.8 H (3.8-10.6) k/uL RBC 5.00 (4.30-5.90) m/uL Hgb 15.7 (13.0-17.5) gm/dL Hct 49.6 (39.0-53.0) % Plt Count 225 (150-450) k/uL Comprehensive Metabolic Panel 06/30/21 Range/Units 08:35 Sodium 141 (137-145) mmol/L Potassium 4.0 (3.5-5.1) mmol/L Chloride 114 H (98-107) mmol/L Carbon Dioxide 17 L (22-30) mmol/L BUN 16 (9-20) mg/dL Creatinine 1.00 (0.66-1.25) mg/dL Glucose 129 H (74-99) mg/dL Calcium 9.0 (8.4-10.2) mg/dL Current Medications Generic Name Dose Route Start Last Admin Trade Name Freq PRN Reason Stop Dose Admin Sodium Chloride 1,000 mls @ 50 mls/hr 06/30/21 05:41 Saline 0.9% IV 07/30/21 05:42 .Q20H NANDO Lactated Ringer's 1,000 mls @ 20 mls/hr 06/30/21 05:41 Lactated Ringers IV 07/30/21 05:42 .Q24H NANDO Intake and Output 06/29/21 06/30/21 06/30/21 22:59 06:59 14:59 Other: Weight 137.1 kg Patient Weight 07/01/21 06:59 Weight 137.1 kg 06/30/21 08:35 06/30/21 08:35
[2021-06-30] MEDS ORDERED: ROCURONIUM 10 MG/ML (5 ML VIAL) IV ONE (10:57)
[2021-06-30] MEDS ORDERED: GLYCOPYRROLATE 0.2 MG/ML 2 ML VIAL ONE (10:57)
[2021-06-30] MEDS ORDERED: SUCCINYLCHOLINE CHLORIDE 100 MG/5 ML SYR IV ONE (10:57)
[2021-06-30] MEDS ORDERED: NEOSTIGMINE 1 MG/ML 10 ML VIAL ONE (10:57)
[2021-06-30] MEDS ORDERED: fentaNYL (PF) 50 MCG/ML 2 ML AMP ONE (10:57)
[2021-06-30] MEDS ORDERED: MIDAZOLAM 2 MG/2 ML VIAL ONE (10:57)
[2021-06-30] MEDS ORDERED: LIDOCAINE 1% INJ 10MG/ML (20 ML MDV) ONE (10:57)
[2021-06-30] MEDS ORDERED: PROTAMINE SULFATE 10 MG/ML 5 ML VIAL IV ONE (10:57)
[2021-06-30] MEDS ORDERED: FUROSEMIDE 10 MG/ML 2 ML VIAL ONE (10:57)
[2021-06-30] MEDS ORDERED: ETOMIDATE 2 MG/ML 10 ML VIAL ONE (10:57)
[2021-06-30] MEDS ORDERED: PHENYLEPHRINE-0.9% NACL SYG 1,000 MCG/10 ML SYRINGE ONE (10:57)
[2021-06-30] MEDS ORDERED: PROPOFOL 10 MG/ML 20 ML VIAL IV ONE (10:57)
[2021-06-30] MEDS ORDERED: HEPARIN SODIUM,PORCINE 10,000 UNIT/ML 1 ML VIAL ONE (10:57)
[2021-06-30] MEDS ORDERED: LIDOCAINE 1% INJ 10MG/ML (20 ML MDV) SQ ONE (11:42)
[2021-06-30] MEDS ORDERED: HEPARIN SOD,PORK IN 0.45% NACL 25,000 UNIT in 0.45% NACL 1 250ML.BAG IV ONE (11:44)
[2021-06-30] MEDS ORDERED: HEPARIN SODIUM (1,000 UNIT/ML) 1,000 UNIT in SODIUM CHLORIDE 0.9% 1,000 ML IRRIGATION ONE (12:17)
[2021-06-30] MEDS ORDERED: cloNIDine 0.1 MG/24HR PATCH TRANSDERM SCH (15:30)
--- NOTE | 2021-06-30 15:46 | P.EPPROC ---
- EP Procedure Note Electrophysiology Procedure Note: Diagnosis Sustained atrial tachycardia 2-1 block with RVR and cardio myopathy History of atrial fibrillation with PVI, roofline, mitral isthmus line, septal ablation Symptomatic Details Patient was brought to the EP lab in a fasting state. Written informed consent was obtained prior to the procedure. Intubated at the onset. IV heparin initiated Venous access obtained in the right and left groins which related closed with Perclose at the end of the procedure with good hemostasis Diagnostic catheters placed in the right heart and coronary sinus Patient was in an atrial tachycardia cycle length 300 ms cycle length Entrainment performed from cavo tricuspid isthmus. Long PPI Intracardiac echocardiography performed Transseptal access obtained successfully Deflectable sheath placed Electrical anatomic mapping performed Voltage mapping as well as activation mapping of the left atrium Earliest activation noted in the groove between the left atrial appendage and left-sided veins RF ablation applied along the groove from the roof area down to the madhu. At the level of the madhu, termination occurred This line was continued down to the lower border of the LIPV The pulmonary veins were isolated antral level. There are very large veins and and undergone cryoablation previously Antral ablation was performed anteriorly as well as posteriorly Along the posterior wall esophageal deflection was performed The esophageal temperature probe and OG tube first placed Initial difficulty with passing the esophageal temperature probe Later an endoscope was placed quite comfortably Esophageal deflection was performed very smoothly. Esophagus deflected both right within leftwards with ease Linear ablation performed along the posterior wall outside the antrum of the right and left pulmonary veins Linear ablation performed along the septum, outside the antrum of the right- sided veins anteriorly RF ablation performed along areas of fractionated electrograms Once this was complete the esophageal probe was removed Wheezing was noted in the back of the throat Anesthesiologist came in, Dr. Nettles Evaluated with a kaleidoscope This appeared to be oozing from the esophagus This mostly settled down after reversal with protamine However the patient was kept intubated to avoid aspiration, to protect the airway and lungs Discussed with orchid hand /critical care Dr. Vo Admitted to ICU overnight Message sent to Dr. Asencio for evaluation for upper esophageal bleeding Xarelto on hold Plan Hold oral medications Avoid OG tube placement Patient will stay intubated until seen by gastrology Patient remained in sinus rhythm hemodynamic a stable IV Lasix 40 mg given at the end of the procedure Groins sealed with Perclose
[2021-06-30 16:14] LABS: Glucose,Whole Blood 125 mg/dL (75-99)
[2021-06-30 16:20] LABS: ABG Base Excess -6.8 mmol/L; ABG HCO3 20 mmol/L (21-25); ABG PCO2 39 mmHg (35-45); ABG PH 7.31 (7.35-7.45); ABG PO2 374 mmHg (83-108); ABG TCO2 21 mmol/L (19-24); Allen Test Performed? Yes
--- NOTE | 2021-06-30 16:42 | XR ---
EXAMINATION TYPE: XR chest 1V portable DATE OF EXAM: 06/30/2021 COMPARISON: X-ray dated 11/29/2020 HISTORY: ETT placement TECHNIQUE: Single frontal view of the chest is obtained. FINDINGS: Interval insertion of an endotracheal tube with the tip is about 4.4 cm proximal to the madhu. Blunt ing of the left CP recess with adjacent atelectasis/prominent epicardial fat pad. Grossly unremarkable remainder of the lungs. No sizable right pleural effusion or pneumothorax. Sligh tly increased cardiac transverse diameter. Degenerative changes of the thoracic spine. IMPRESSION: As above.
[2021-06-30] MEDS: SODIUM CHLORIDE 0.9% 1,000 ML IV SCH (16:52)
[2021-06-30] MEDS: NOREPINEPHRINE 4 MG in SODIUM CHLORIDE 0.9% 250 ML IV SCH (17:12)
[2021-06-30 17:29] LABS: HGB 12.8 gm/dL (13.0-17.5); Hypochromasia Moderate; MCH 31.7 pg (25.0-35.0); MCHC 31.3 g/dL (31.0-37.0); MCV 101.5 fL (80.0-100.0); Macrocytosis Slight; Mean Platelet Volume 8.2; Platelet Count 187 k/uL (150-450); RBC 4.04 m/uL (4.30-5.90); RDW 13.7 % (11.5-15.5); WBC 11.4 k/uL (3.8-10.6)
[2021-06-30] MEDS: PANTOPRAZOLE 40 MG/10 ML VIAL IVP SCH (18:13)
[2021-07-01] MEDS: CHLORHEXIDINE GLUCONATE 15 ML CUP MUCOUS MEM SCH ×2 (00:58→08:20)
[2021-07-01 05:26] LABS: Calcium 8.5 mg/dL (8.4-10.2)
[2021-07-01 05:33] LABS: Potassium 4.9 mmol/L (3.5-5.1)
[2021-07-01 05:38] LABS: HCT 45.3 % (39.0-53.0); HGB 14.6 gm/dL (13.0-17.5); Hypochromasia Slight; MCHC 32.2 g/dL (31.0-37.0); MCV 99.3 fL (80.0-100.0); Mean Platelet Volume 8.3; Platelet Count 152 k/uL (150-450); RBC 4.56 m/uL (4.30-5.90); RDW 14.1 % (11.5-15.5); WBC 13.7 k/uL (3.8-10.6)
[2021-07-01 06:07] LABS: ABG HCO3 22 mmol/L (21-25); ABG Oxygen Saturation 96.6 % (94-97); ABG PCO2 40 mmHg (35-45); ABG PH 7.34 (7.35-7.45); ABG PO2 85 mmHg (83-108); ABG TCO2 23 mmol/L (19-24); Allen Test Performed? Yes
--- NOTE | 2021-07-01 07:48 | P.PN ---
Subjective Progress Note Date: 07/01/21 PROGRESS NOTE The patient is a 71-year-old male with a known history of atrial fibrillation and cardiomyopathy. He has a prior history of CAD status post stenting of the LAD in 2014. He recently had recurrent atrial fibrillation. In the past he had drops in his ejection fraction with the atrial arrhythmia. He has underwent cardioversion and ablation in 2018. He was admitted yesterday and underwent atrial fibrillation ablation with isolation of the pulmonary vein. He was kept intubated because of bleeding from the esophagus. He is intubated and sedated. Hemodynamically stable. Continues to be in sinus mechanism with no evidence of recurrent atrial fibrillation. Urinary output has been stable. As an outpatient he was maintained on Zestril 20 mg twice a day, metoprolol succinate 100 mg daily, Xarelto 20 mg daily. He has been on Tikosyn in the past. Physical examination: 71-year-old male intubated and sedated Blood pressure 101/58 heart rate 76 LUNGS: [Clear to auscultation anteriorly HEART: [Regular rate and rhythm, S1, S2. No S3. systolic ejection murmur at the base ] ABDOMEN: [Soft, no organomegaly] EXTREMETIES: [No edema, both groins no hematoma] LAB: PH 7.34, pO2 80. Hemoglobin 14.6, white blood cells 13.7. BUN 17, creatinine 1.09 IMPRESSION: 1. Status post atrial fibrillation ablation with isolation of the pulmonary vein 2. Esophageal bleed, intubation maintained, no evidence of acute bleeding with stable hemoglobin 3. History of CAD 4. History of cardiomyopathy while in atrial fibrillation PLAN: 1. Evaluation by intensive care service and possible weaning and extubation today 2. If no evidence of bleeding then resume anticoagulation in addition to beta clara and LOLITA inhibitor 3. Depending on his progress further recommendations will be made. Objective - Vital Signs Vital signs: Vital Signs Temp 99.6 F 07/01/21 03:30 Pulse 76 07/01/21 07:30 Resp 14 07/01/21 07:30 BP 101/58 07/01/21 07:30 Pulse Ox 96 07/01/21 07:30 Intake & Output 06/30/21 07/01/21 07/01/21 18:59 06:59 18:59 Intake Total 1726.232 682.769 10 Output Total 785 1060 75 Balance 941.232 -377.231 -65 Weight 137.1 kg Intake: IV 1575 Intake, IV Titration 151.232 682.769 10 Amount Norepinephrine 4 mg In 28.381 146.783 Sodium Chloride 0.9% 250 ml @ 0.05 MCG/KG/MIN 26. 118 mls/hr IV .Q9H44M NANDO Rx#:[id number] Sodium Chloride 0.9% 1, 20 120 10 000 ml @ 10 mls/hr IV . Q24H NANDO Rx#:[id number] Sodium Chloride 0.9% 1, 50 000 ml @ 50 mls/hr IV . Q20H NANDO Rx#:[id number] propofoL 1,000 mg In 52.851 415.986 Empty Bag 1 bag @ 15 MCG/ KG/MIN 12.339 mls/hr IV . Q8H7M NANDO Rx#:[id number] Output: Urine 785 1060 75 Other: Voiding Method Indwelling Catheter Indwelling Catheter - Labs CBC & Chem 7: 07/01/21 04:23 07/01/21 04:23 Labs: Abnormal Lab Results - Last 24 Hours (Table) 06/30/21 06/30/21 06/30/21 Range/Units 08:35 08:35 08:47 WBC 10.8 H (3.8-10.6) k/uL RBC (4.30-5.90) m/uL Hgb (13.0-17.5) gm/dL MCV (80.0-100.0) fL ABG pH (7.35-7.45) ABG pO2 (83-108) mmHg ABG HCO3 (21-25) mmol/L ABG O2 Saturation (94-97) % Chloride 114 H (98-107) mmol/L Carbon Dioxide 17 L (22-30) mmol/L Glucose 129 H (74-99) mg/dL POC Glucose (mg/dL) 117 H (75-99) mg/dL 06/30/21 06/30/21 06/30/21 Range/Units 16:12 16:15 17:17 WBC 11.4 H (3.8-10.6) k/uL RBC 4.04 L (4.30-5.90) m/uL Hgb 12.8 L (13.0-17.5) gm/dL MCV 101.5 H (80.0-100.0) fL ABG pH 7.31 L (7.35-7.45) ABG pO2 374 H (83-108) mmHg ABG HCO3 20 L (21-25) mmol/L ABG O2 Saturation 100.0 H (94-97) % Chloride (98-107) mmol/L Carbon Dioxide (22-30) mmol/L Glucose (74-99) mg/dL POC Glucose (mg/dL) 125 H (75-99) mg/dL 07/01/21 07/01/21 07/01/21 Range/Units 04:23 04:23 06:00 WBC 13.7 H (3.8-10.6) k/uL RBC (4.30-5.90) m/uL Hgb (13.0-17.5) gm/dL MCV (80.0-100.0) fL ABG pH 7.34 L (7.35-7.45) ABG pO2 (83-108) mmHg ABG HCO3 (21-25) mmol/L ABG O2 Saturation (94-97) % Chloride 114 H (98-107) mmol/L Carbon Dioxide 18 L (22-30) mmol/L Glucose 116 H (74-99) mg/dL POC Glucose (mg/dL) (75-99) mg/dL
--- NOTE | 2021-07-01 08:04 | P.CONS ---
History of Present Illness - Reason for Consult Consult date: 07/01/21 esophageal bleeding Requesting physician: Demar Larsen - Chief Complaint Atrial fibrillation, cardiac ablation - History of Present Illness This is a 71-year-old male who presented yesterday for cardiac ablation for atrial fibrillation with Dr. Larsen. He has past medical history including coronary artery disease atrial fibrillation, CVA, diabetes mellitus, sleep apne a, hypertension, and hyperlipidemia. Apparently during the procedure it was noted that he had some bleeding in the esophagus he was treated with protamine. He was sent to the ICU and remained intubated and sedated to protect his airway. Gastroenterology was consulted to perform EGD to assess for esophageal bleed. The patient currently remains in the ICU sedated on mechanical ventilation. Patient had been hypotensive and was on levophed which is currently off. He's had no signs of any bleeding throughout the night according to his nurse. Hemoglobin on admission was 15.7 with a dropped to 12.8 yesterday evening with a repeat today 14.6. No further history is unable to be obtained as patient is intubated, HPI obtained from nurse and patient's chart. Review of Systems ROS unobtainable: due to endotracheal tube Past Medical History Past Medical History: Atrial Fibrillation, Coronary Artery Disease (CAD), Heart Failure, CVA/TIA, Diabetes Mellitus, Hearing Disorder / Deafness, Hyperlipidemia, Hypertension, Memory Impairment, Osteoarthritis (OA), Pneumonia, Seizure Disorder, Sleep Apnea/CPAP/BIPAP Additional Past Medical History / Comment(s): CVA 12/2012. Hearing aids. Heel spurs. Short term memory loss, hx fall w/ seizure; Last seizure about 2010 est; hx slight tremors. ED, problems emptying bladder on occ. Has tears in bilat meniscus. Uses CPAP. Some difficulty with speech since CVA. See Dr. Giron's H & P. History of Any Multi-Drug Resistant Organisms: None Reported Past Surgical History: Heart Catheterization, Heart Catheterization With Stent, Orthopedic Surgery Additional Past Surgical History / Comment(s): Colonoscopy w/ exc 1 benign polyp, Rhinoplasty, Torn Meniscus Bilat Knees - RT X2, Lt X1 w/ scopes, LT Shoulder AC Joint. Cardioversion, PRIYANKA. Past Anesthesia/Blood Transfusion Reactions: No Reported Reaction Additional Past Anesthesia/Blood Transfusion Reaction / Comm: Claustrophobia Date of Last Stent Placement:: 07-10-14 Smoking Status: Former smoker - Past Family History Father Additional Family Medical History / Comment(s): EMPHYSEMA Mother Family Medical History: No Reported History Additional Family Medical History / Comment(s): HEAVY SMOKER, HEART STENTS. Medications and Allergies Home Medications Medication Instructions Recorded Confirmed Type Rivaroxaban [Xarelto] 20 mg PO HS 07/09/14 06/30/21 History Topiramate 150 mg PO BID 07/09/14 06/30/21 History metFORMIN HCL [Glucophage] 850 mg PO BID 07/09/14 06/30/21 History Clopidogrel [Plavix] 75 mg PO DAILY 05/13/16 06/30/21 History Omeprazole 20 mg PO DAILY #30 cap 05/17/16 06/30/21 Rx Acetaminophen [Tylenol Extra 1,000 mg PO BID 04/15/17 06/30/21 History Strength] Ascorbic Acid [Vitamin C] 500 mg PO HS 04/15/17 06/30/21 History Cholecalciferol (Vitamin D3) 50 mcg PO HS 04/15/17 06/30/21 History [Vitamin D3] Ferrous Sulfate [Iron (65 MG 325 mg PO HS 04/15/17 06/30/21 History Elemental)] lisinopriL [Zestril] 20 mg PO BID 04/15/17 06/30/21 History Multivit-Min/FA/Lycopen/Lutein 1 tab PO DAILY 05/11/17 06/30/21 History [Centrum Silver Tablet] Nitroglycerin Sl Tabs [Nitrostat] 0.4 mg SUBLINGUAL Q5M PRN 03/22/18 06/26/21 History Atorvastatin [Lipitor] 20 mg PO HS 01/29/19 06/30/21 History Metoprolol Succinate (ER) [Toprol 100 mg PO DAILY #90 tab 02/02/19 06/30/21 Rx XL] Spironolactone 50 mg PO DAILY #90 tablet 02/02/19 06/30/21 Rx Magnesium Oxide 420 mg PO BID 08/25/20 06/30/21 History Dofetilide [Tikosyn] 125 mcg PO BID 06/26/21 06/30/21 History Cyclobenzaprine [Flexeril] 10 mg PO DAILY PRN 06/30/21 06/30/21 History Gabapentin [Neurontin] 100 mg PO BID PRN 06/30/21 06/30/21 History Allergies Allergy/AdvReac Type Severity Reaction Status Date / Time No Known Allergies Allergy Verified 06/26/21 11:50 Physical Exam Vitals: Vital Signs Temp Pulse Pulse Resp BP BP Pulse Ox 07/01/21 07:30 76 14 101/58 96 07/01/21 07:15 75 14 101/61 98 07/01/21 07:00 76 19 109/65 99 07/01/21 06:45 76 14 111/67 98 07/01/21 06:30 79 14 112/65 98 07/01/21 06:15 79 14 114/66 98 07/01/21 06:00 82 18 116/60 98 07/01/21 05:45 82 18 114/68 98 07/01/21 05:30 80 14 115/68 97 07/01/21 05:15 79 15 115/66 98 07/01/21 05:00 80 14 117/67 98 07/01/21 04:45 81 17 123/72 96 07/01/21 04:30 81 14 117/68 96 07/01/21 04:15 81 14 114/67 99 07/01/21 04:00 80 14 111/69 99 07/01/21 03:45 82 14 117/70 99 07/01/21 03:30 99.6 F 78 14 113/66 99 07/01/21 03:15 77 14 106/62 99 07/01/21 03:00 76 14 103/64 99 07/01/21 02:45 75 14 107/64 99 07/01/21 02:30 77 14 101/61 99 07/01/21 02:15 77 14 97/59 98 07/01/21 02:00 77 14 102/64 98 07/01/21 01:45 79 14 105/64 99 07/01/21 01:30 82 14 114/70 99 07/01/21 01:15 83 16 124/73 99 07/01/21 01:00 99.8 F H 86 14 136/83 98 07/01/21 00:45 86 14 132/80 97 07/01/21 00:30 85 20 136/82 97 07/01/21 00:15 84 15 139/87 97 07/01/21 00:00 82 15 142/86 98 06/30/21 23:45 84 14 134/81 99 06/30/21 23:30 79 19 127/80 99 06/30/21 23:19 80 16 127/80 97 06/30/21 23:15 78 19 117/74 99 06/30/21 23:00 72 17 109/74 100 06/30/21 22:45 73 15 114/69 100 06/30/21 22:30 74 15 118/77 100 06/30/21 22:15 74 17 113/71 100 06/30/21 22:00 73 15 109/71 99 06/30/21 21:45 73 17 114/69 100 06/30/21 21:30 71 16 111/74 100 06/30/21 21:15 74 14 113/76 100 06/30/21 21:00 80 14 120/79 99 06/30/21 20:45 73 14 121/79 100 06/30/21 20:30 74 15 100/62 100 06/30/21 20:15 75 17 120/78 100 06/30/21 20:00 98.2 F 77 14 115/74 100 06/30/21 19:45 73 16 110/76 100 06/30/21 19:30 73 15 107/68 100 06/30/21 19:15 70 14 111/71 98 06/30/21 19:00 72 17 104/72 99 06/30/21 18:45 70 14 106/72 99 06/30/21 18:30 67 16 117/73 99 06/30/21 18:15 67 16 104/69 99 06/30/21 18:00 66 17 111/75 99 06/30/21 17:45 68 14 101/71 99 06/30/21 17:30 60 15 99/73 100 06/30/21 17:15 61 15 85/68 98 06/30/21 17:00 60 16 63/40 96 06/30/21 16:45 64 12 82/49 96 06/30/21 16:30 67 17 107/91 99 06/30/21 16:15 71 22 85/47 98 06/30/21 16:00 97.9 F 66 16 86/56 98 06/30/21 08:56 98.7 F 101 H 16 151/90 91 L Intake and Output 0307/01/21 07/01/21 22:59 06:59 14:59 Intake Total 338.988 495.013 10 Output Total 950 495 75 Balance -611.012 0.013 -65 Intake: Intake, IV Titration 338.988 495.013 10 Amount Norepinephrine 4 mg In 54.064 121.100 Sodium Chloride 0.9% 250 ml @ 0.05 MCG/KG/MIN 26. 118 mls/hr IV .Q9H44M NANDO Rx#:[id number] Sodium Chloride 0.9% 1, 60 80 10 000 ml @ 10 mls/hr IV . Q24H NANDO Rx#:[id number] Sodium Chloride 0.9% 1, 50 000 ml @ 50 mls/hr IV . Q20H NANDO Rx#:[id number] propofoL 1,000 mg In 174.924 293.913 Empty Bag 1 bag @ 15 MCG/ KG/MIN 12.339 mls/hr IV . Q8H7M NANDO Rx#:[id number] Output: Urine 950 495 75 Other: Voiding Method Indwelling Catheter Indwelling Catheter General appearance: The patient is dated on mechanical ventilation. HET: Head is normocephalic and atraumatic. Neck: Supple without lymphadenopathy. Trachea midline. Heart: S1 S2. Regular rate and rhythm. Lungs: Equal air entry and expansion. Abdomen: Soft, nondistended with bowel sounds. No guarding or rigidity. Skin: No rashes. No jaundice. Extremities: Normal skin color and turgor. No pedal edema. Neurological: Sedated and intubated. Results CBC & Chem 7: 07/01/21 04:23 07/01/21 04:23 Labs: Abnormal Lab Results - Last 24 Hours (Table) 06/30/21 06/30/21 06/30/21 Range/Units 08:35 08:35 08:47 WBC 10.8 H (3.8-10.6) k/uL RBC (4.30-5.90) m/uL Hgb (13.0-17.5) gm/dL MCV (80.0-100.0) fL ABG pH (7.35-7.45) ABG pO2 (83-108) mmHg ABG HCO3 (21-25) mmol/L ABG O2 Saturation (94-97) % Chloride 114 H (98-107) mmol/L Carbon Dioxide 17 L (22-30) mmol/L Glucose 129 H (74-99) mg/dL POC Glucose (mg/dL) 117 H (75-99) mg/dL 06/30/21 06/30/21 06/30/21 Range/Units 16:12 16:15 17:17 WBC 11.4 H (3.8-10.6) k/uL RBC 4.04 L (4.30-5.90) m/uL Hgb 12.8 L (13.0-17.5) gm/dL MCV 101.5 H (80.0-100.0) fL ABG pH 7.31 L (7.35-7.45) ABG pO2 374 H (83-108) mmHg ABG HCO3 20 L (21-25) mmol/L ABG O2 Saturation 100.0 H (94-97) % Chloride (98-107) mmol/L Carbon Dioxide (22-30) mmol/L Glucose (74-99) mg/dL POC Glucose (mg/dL) 125 H (75-99) mg/dL 07/01/21 07/01/21 07/01/21 Range/Units 04:23 04:23 06:00 WBC 13.7 H (3.8-10.6) k/uL RBC (4.30-5.90) m/uL Hgb (13.0-17.5) gm/dL MCV (80.0-100.0) fL ABG pH 7.34 L (7.35-7.45) ABG pO2 (83-108) mmHg ABG HCO3 (21-25) mmol/L ABG O2 Saturation (94-97) % Chloride 114 H (98-107) mmol/L Carbon Dioxide 18 L (22-30) mmol/L Glucose 116 H (74-99) mg/dL POC Glucose (mg/dL) (75-99) mg/dL Assessment and Plan (1) GI bleed Narrative/Plan: 71-year-old male with multiple comorbidities including persistent atrial fibrillation presented yesterday for a cardiac ablation. Apparently during the procedure of esophageal bleeding had been noted patient was given protamine by anesthesia. There was no reported further bleeding throughout the night however patient was remained intubated and sedated to protect his airway in the ICU. Gastroenterology was consulted for EGD for further evaluation to assess for GI bleed. No reported bleeding from the nurse. Admitting hemoglobin was 15.7. Repeat labs today WBC 13.7 hemoglobin 14.6 hematocrit 45 platelet count 152,000. We'll proceed with EGD to evaluate esophagus. Hold anticoagulation. Current Visit: No Status: Acute Code(s): K92.2 - GASTROINTESTINAL HEMORRHAG E, UNSPECIFIED SNOMED Code(s): 78278227 (2) Persistent atrial fibrillation Current Visit: No Status: Acute Code(s): I48.19 - OTHER PERSISTENT ATRIAL FIBRILLATION SNOMED Code(s): 107276049 Plan: 1. Continue symptomatic and supportive care 2. Continue ICU management 3. Hold anticoagulation 4. Will proceed with EGD at the bedside, please obtain consent Thank you for this consultation. Dr. Gabe Heller I agree with the dictator's note, documented as a scribe by Deanna Delgado.
[2021-07-01] MEDS: NOREPINEPHRINE 4 MG in SODIUM CHLORIDE 0.9% 250 ML IV SCH ×3 (08:19→23:45)
[2021-07-01] MEDS: PANTOPRAZOLE 40 MG/10 ML VIAL IVP SCH (08:20)
--- NOTE | 2021-07-01 08:26 | XR ---
EXAMINATION TYPE: XR chest 1V portable DATE OF EXAM: 07/01/2021 COMPARISON: 06/30/2021 INDICATION: Difficulty breathing line placement TECHNIQUE: Single frontal view of the chest is obtained. FINDINGS: The heart size is normal. The pulmonary vasculature is normal. There is some mild increase lung markings at the right lung base. Correlate for atelectasis or pneumo kayla. A retrocardiac infiltrate appears to be present. Endotracheal tube tip is above the madhu. IMPRESSION: 1. Suggestion of worsening right lower lobe infiltrate. 2. Developing retrocardiac infiltrate. Correlate for pneumonia. 3. Endotracheal tube tip above the madhu.
[2021-07-01] MEDS ORDERED: IV FLUID CONTINUATION 1,000 ML IV ONE (11:34)
--- NOTE | 2021-07-01 11:38 | P.CNPUL ---
History of Present Illness Consult date: 07/01/21 Requesting physician: Demar Larsen Reason for consult: other Chief complaint: Esophageal bleeding post A. fib ablation History of present illness: This is a 71-year-old male patient with a known history of atrial fibrillation and cardiomyopathy, coronary artery disease with previous stenting of the LAD in 2014. Patient had persistent and symptomatic atrial fibrillation, his most recent transesophageal echocardiogram from August 2020 showed evidence of global hypokinesis of the left ventricle, dilated left atrium, [id number] mitral with mild tricuspid regurgitation, stretched PFO with [id number] shunting and no evidence of reversal of flow. Patient is currently on dofetilide, Toprol-XL, and Xarelto for anticoagulation. On 06/30/2021 patient came in for an elective atrial fibrillation ablation. The pulmonary veins were isolated at the antral level, the patient underwent antral ablation anteriorly and posteriorly. There was some difficulty with passing of the esophageal temperature probe and the endoscope was then inserted. However upon removal though some wheezing, and some oozing from the esophagus noted. Patient was intubated to avoid aspiration and for protection of the airway and lungs, and patient was sedated and admitted to the intensive care unit. His morning she seen in intensive care unit, remains sedated and intubated on assist control mode of ventilation with a rate of 14, tidal labs 500, FiO2 45% and PEEP of 5, this morning's blood gas shows pO2 of 85, pCO2 40, pH of 7.34. Hemodynamically patient is in sinus mechanism with a rate of 68, blood pressures are with marginal 84/53, he is requiring norepinephrine at 0.02 mics per kilo per minute, point normal saline at a tendon per hour, and improving and is a 50 mics per kilo per minute. Patient has not required blood transfusions. His admission hemoglobin was 15.7 on 06/30/2021, this morning is 14.6, white count is 13.7, platelet count is 152. His sodium is 141, potassium is 4.9, chloride is 114, CO2 is 18, BUN is 17, creatinine is 1.09. Blood gas shows pO2 of 85, pCO2 40, pH of 7.34, this was done on the above-mentioned ventilator settings and FiO2 of 45%. Xarelto remains on hold, patient is on IV Protonix 40 mg daily, is on minimal IV fluids to keep open, he is kept nothing by mouth, GI service consultation has been requested and patient is supposed to have a EGD today. Today's chest x-ray showing no sizable right pleural effusion, ET tube 4.4 cm above the madhu. Balderrama catheter is in place, and urine output is in the order of 25-45 ML per hour. Review of Systems All systems: negative Constitutional: Denies chills, Denies fever Eyes: denies blurred vision, denies pain Ears, nose, mouth and throat: Denies headache, Denies sore throat Cardiovascular: Denies chest pain, Denies shortness of breath Respiratory: Reports dyspnea, Denies cough Gastrointestinal: Denies abdominal pain, Denies diarrhea, Denies nausea, Denies vomiting Musculoskeletal: Denies myalgias Integumentary: Denies pruritus, Denies rash Neurological: Denies numbness, Denies weakness Psychiatric: Denies anxiety, Denies depression Endocrine: Denies fatigue, Denies weight change Past Medical History Past Medical History: Atrial Fibrillation, Coronary Artery Disease (CAD), Heart Failure, CVA/TIA, Diabetes Mellitus, Hearing Disorder / Deafness, Hyperlipidemia, Hypertension, Memory Impairment, Osteoarthritis (OA), Pneumonia, Seizure Disorder, Sleep Apnea/CPAP/BIPAP Additional Past Medical History / Comment(s): CVA 12/2012. Hearing aids. Heel spurs. Short term memory loss, hx fall w/ seizure; Last seizure about 2010 est; hx slight tremors. ED, problems emptying bladder on occ. Has tears in bilat meniscus. Uses CPAP. Some difficulty with speech since CVA. See Dr. Giron's H & P. History of Any Multi-Drug Resistant Organisms: None Reported Past Surgical History: Heart Catheterization, Heart Catheterization With Stent, Orthopedic Surgery Additional Past Surgical History / Comment(s): Colonoscopy w/ exc 1 benign polyp, Rhinoplasty, Torn Meniscus Bilat Knees - RT X2, Lt X1 w/ scopes, LT Shoulder AC Joint. Cardioversion, PRIYANKA. Past Anesthesia/Blood Transfusion Reactions: No Reported Reaction Additional Past Anesthesia/Blood Transfusion Reaction / Comment(s): Claustrophobia Date of Last Stent Placement:: 07-10-14 Past Psychological History: No Psychological Hx Reported Additional Psychological History / Comment(s): HAS HEARING LOSS, APHASIA Smoking Status: Former smoker Past Alcohol Use History: None Reported Additional Past Alcohol Use History / Comment(s): Smoking at age 14, quit 1976, Smoked 3 PPD. Past Drug Use History: None Reported - Past Family History Father Additional Family Medical History / Comment(s): EMPHYSEMA Mother Family Medical History: No Reported History Additional Family Medical History / Comment(s): HEAVY SMOKER, HEART STENTS. Medications and Allergies Home Medications Medication Instructions Recorded Confirmed Type Rivaroxaban [Xarelto] 20 mg PO HS 07/09/14 06/30/21 History Topiramate 150 mg PO BID 07/09/14 06/30/21 History metFORMIN HCL [Glucophage] 850 mg PO BID 07/09/14 06/30/21 History Clopidogrel [Plavix] 75 mg PO DAILY 05/13/16 06/30/21 History Omeprazole 20 mg PO DAILY #30 cap 05/17/16 06/30/21 Rx Acetaminophen [Tylenol Extra 1,000 mg PO BID 04/15/17 06/30/21 History Strength] Ascorbic Acid [Vitamin C] 500 mg PO HS 04/15/17 06/30/21 History Cholecalciferol (Vitamin D3) 50 mcg PO HS 04/15/17 06/30/21 History [Vitamin D3] Ferrous Sulfate [Iron (65 MG 325 mg PO HS 04/15/17 06/30/21 History Elemental)] lisinopriL [Zestril] 20 mg PO BID 04/15/17 06/30/21 History Multivit-Min/FA/Lycopen/Lutein 1 tab PO DAILY 05/11/17 06/30/21 History [Centrum Silver Tablet] Nitroglycerin Sl Tabs [Nitrostat] 0.4 mg SUBLINGUAL Q5M PRN 03/22/18 06/26/21 History Atorvastatin [Lipitor] 20 mg PO HS 01/29/19 06/30/21 History Metoprolol Succinate (ER) [Toprol 100 mg PO DAILY #90 tab 02/02/19 06/30/21 Rx XL] Spironolactone 50 mg PO DAILY #90 tablet 02/02/19 06/30/21 Rx Magnesium Oxide 420 mg PO BID 08/25/20 06/30/21 History Dofetilide [Tikosyn] 125 mcg PO BID 06/26/21 06/30/21 History Cyclobenzaprine [Flexeril] 10 mg PO DAILY PRN 06/30/21 06/30/21 History Gabapentin [Neurontin] 100 mg PO BID PRN 06/30/21 06/30/21 History Allergies Allergy/AdvReac Type Severity Reaction Status Date / Time No Known Allergies Allergy Verified 06/26/21 11:50 Physical Exam Vitals: Vital Signs Temp Pulse Resp BP Pulse Ox 07/01/21 11:00 74 17 95/58 96 07/01/21 10:45 71 14 99/61 96 07/01/21 10:30 71 15 96/59 97 07/01/21 10:15 65 14 100/58 98 07/01/21 10:00 70 20 93/59 97 07/01/21 09:45 68 16 100/63 99 07/01/21 09:30 66 14 89/49 97 07/01/21 09:15 70 15 88/56 96 07/01/21 09:00 69 16 83/54 96 07/01/21 08:45 71 18 88/54 96 07/01/21 08:30 70 17 84/53 96 07/01/21 08:15 72 16 81/52 96 07/01/21 08:00 98.5 F 75 17 84/53 96 07/01/21 07:45 75 14 84/52 96 07/01/21 07:30 76 14 101/58 96 07/01/21 07:15 75 14 101/61 98 07/01/21 07:00 76 19 109/65 99 07/01/21 06:45 76 14 111/67 98 07/01/21 06:30 79 14 112/65 98 07/01/21 06:15 79 14 114/66 98 07/01/21 06:00 82 18 116/60 98 07/01/21 05:45 82 18 114/68 98 07/01/21 05:30 80 14 115/68 97 07/01/21 05:15 79 15 115/66 98 07/01/21 05:00 80 14 117/67 98 07/01/21 04:45 81 17 123/72 96 07/01/21 04:30 81 14 117/68 96 07/01/21 04:15 81 14 114/67 99 07/01/21 04:00 80 14 111/69 99 07/01/21 03:45 82 14 117/70 99 07/01/21 03:30 99.6 F 78 14 113/66 99 03/22 03:15 77 14 106/62 99 07/01/22 03:00 76 14 103/64 99 07/01/22 02:45 75 14 107/64 99 07/01/22 02:30 77 14 101/61 99 07/01/22 02:15 77 14 97/59 98 07/01/ 02:00 77 14 102/64 98 07/01/22 01:45 79 14 105/64 99 07/01/22 01:30 82 14 114/70 99 07/01/22 01:15 83 16 124/73 99 07/01/ 01:00 99.8 F H 86 14 136/83 98 07/01/21 00:45 86 14 132/80 97 07/01/21 00:30 85 20 136/82 97 07/01/21 00:15 84 15 139/87 97 07/01/21 00:00 82 15 142/86 98 03/ 23:45 84 14 134/81 99 06/30/22 23:30 79 19 127/80 99 03/22 23:19 80 16 127/80 97 03/22 23:15 78 19 117/74 99 03/22 23:00 72 17 109/74 100 0322/22 22:45 73 15 114/69 100 0322/22 22:30 74 15 118/77 100 03/22 22:15 74 17 113/71 100 03/22/22 22:00 73 15 109/71 99 0322/22 21:45 73 17 114/69 100 0322/22 21:30 71 16 111/74 100 03/22/22 21:15 74 14 113/76 100 03/22/22 21:00 80 14 120/79 99 0322/22 20:45 73 14 121/79 100 0322/22 20:30 74 15 100/62 100 0322/22 20:15 75 17 120/78 100 0322/22 20:00 98.2 F 77 14 115/74 100 03/22/22 19:45 73 16 110/76 100 03/22/22 19:30 73 15 107/68 100 0322/22 19:15 70 14 111/71 98 0322/22 19:00 72 17 104/72 99 06/30/21 18:45 70 14 106/72 99 06/30/21 18:30 67 16 117/73 99 06/30/21 18:15 67 16 104/69 99 06/30/21 18:00 66 17 111/75 99 06/30/21 17:45 68 14 101/71 99 06/30/21 17:30 60 15 99/73 100 06/30/21 17:15 61 15 85/68 98 06/30/21 17:00 60 16 63/40 96 06/30/21 16:45 64 12 82/49 96 06/30/21 16:30 67 17 107/91 99 06/30/21 16:15 71 22 85/47 98 06/30/21 16:00 97.9 F 66 16 86/56 98 Intake and Output 06/30/21 07/01/21 07/01/21 22:59 06:59 14:59 Intake Total 338.988 495.013 230 Output Total 950 495 205 Balance -611.012 0.013 25 Intake: IV 120 Sodium Chloride 0.9% 1, 120 000 ml @ 10 mls/hr IV . Q24H NANDO Rx#:[id number] Intake, IV Titration 338.988 495.013 110 Amount Norepinephrine 4 mg In 54.064 121.100 0 Sodium Chloride 0.9% 250 ml @ 0.05 MCG/KG/MIN 26. 118 mls/hr IV .Q9H44M NANDO Rx#:[id number] Sodium Chloride 0.9% 1, 60 80 10 000 ml @ 10 mls/hr IV . Q24H [facility]ANDO Rx#:[id number] Sodium Chloride 0.9% 1, 50 000 ml @ 50 mls/hr IV . Q20H NANDO Rx#:[id number] propofoL 1,000 mg In 174.924 293.913 100 Empty Bag 1 bag @ 15 MCG/ KG/MIN 12.339 mls/hr IV . Q8H7M NANDO Rx#:[id number] Output: Urine 950 495 205 Other: Voiding Method Indwelling Catheter Indwelling Catheter Indwelling Catheter Weight 137.1 kg GENERAL EXAM: Sedated, intubated, 71-year-old white male, on assist-control mode ventilation with a rate of 14, tidal lamberts 500, FiO2 45% and PEEP of 5, comfortable in no apparent distress. HEAD: Normocephalic/atraumatic. EYES: Normal reaction of pupils, equal size. Conjunctiva pink, sclera white. NOSE: Clear with pink turbinates. THROAT: No erythema or exudates. NECK: No masses, no JVD, no thyroid enlargement, no adenopathy. CHEST: No chest wall deformity. Symmetrical expansion. LUNGS: Equal air entry with clear breath sounds CVS: Regular rate and rhythm, normal S1 and S2, no gallops, no murmurs, no rubs ABDOMEN: Soft, nontender. No hepatosplenomegaly, normal bowel sounds, no guarding or rigidity. EXTREMITIES: No clubbing, no edema, no cyanosis, 2+ pulses and upper and lower extremities. Left groin incisions clean dry and intact, soft MUSCULOSKELETAL: Muscle strength and tone normal. SPINE: No scoliosis or deformity SKIN: No rashes CENTRAL NERVOUS SYSTEM: Sedated, and intubated. No focal deficits, tone is normal in all 4 extremities. Results - Laboratory Findings CBC and BMP: 07/01/21 04:23 07/01/21 04:23 ABG ABG pH 7.34 (7.35-7.45) L 07/01/21 06:00 ABG pCO2 40 mmHg (35-45) 07/01/21 06:00 ABG pO2 85 mmHg (83-108) 07/01/21 06:00 ABG O2 Saturation 96.6 % (94-97) 07/01/21 06:00 Abnormal lab findings: Abnormal Labs 06/30/21 06/30/21 06/30/21 08:35 08:35 08:47 WBC 10.8 H RBC Hgb MCV ABG pH ABG pO2 ABG HCO3 ABG O2 Saturation Chloride 114 H Carbon Dioxide 17 L Glucose 129 H POC Glucose (mg/dL) 117 H 06/30/21 06/30/21 06/30/21 16:12 16:15 17:17 WBC 11.4 H RBC 4.04 L Hgb 12.8 L MCV 101.5 H ABG pH 7.31 L ABG pO2 374 H ABG HCO3 20 L ABG O2 Saturation 100.0 H Chloride Carbon Dioxide Glucose POC Glucose (mg/dL) 125 H 07/01/21 07/01/21 07/01/21 04:23 04:23 06:00 WBC 13.7 H RBC Hgb MCV ABG pH 7.34 L ABG pO2 ABG HCO3 ABG O2 Saturation Chloride 114 H Carbon Dioxide 18 L Glucose 116 H POC Glucose (mg/dL) - Diagnostic Findings Chest x-ray: report reviewed, image reviewed Assessment and Plan Plan: Assessment: #1. Acute esophageal bleeding post atrial fibrillation ablation, the patient was intubated for protection of airway on 06/30/2021. #2. Persistent and symptomatic atrial fibrillation, status post previous A. fib with ablation, and a repeat ablation on 06/30/2021. Currently in sinus mechanism #3. Coronary artery disease with previous stenting of the LAD #4. History of CVA #5. Diabetes mellitus type 2 #6. History of sleep apnea #7. Hypertension #8. Hyperlipidemia Plan: We'll continue with current ventilator settings Today's labs, chest x-ray and blood gases have been reviewed Patient was seen and evaluated along with Dr. Noland Hemoglobin is stable, Patient is requiring small dose of norepinephrine In sinus mechanism We'll keep the patient intubated and sedated for possibility of EGD today Hold blood thinners, Continue Protonix SCDs for DVT prophylaxis Home meds will be restarted after GI clears the patient to have medications through the GI tract We'll continue to follow his clinical course in the intensive care unit Serial H&H's I have personally seen and examined the patient, performed the documentation and the assessment and plan as written. Number of minutes spent on the visit: [15] Time with Patient: Greater than 30
--- NOTE | 2021-07-01 11:49 | P.PCN ---
Date of Procedure: 07/01/21 Procedure(s) Performed: BRIEF HISTORY: Patient is a 71-year-old, pleasant, white male admitted to the intensive care unit ablation of atrial fibrillation yesterday by Dr. Larsen. After ablation was done he had some upper GI bleed and hence he was transferred to the intensive care unit on the vent. As per the nursing staff through the night there was no active bleeding noted. His hemoglobin did drop from 40-12 g/dL. Patient remains in the vent and sedated.. PROCEDURE PERFORMED: Esophagogastroduodenoscopy. PREOPERATIVE DIAGNOSIS: .Acute upper GI bleed IV sedation per anesthesia. PROCEDURE: After informed consent was obtained, the patient was brought into the endoscopy unit. IV sedation was administered by Anesthesia under continuous monitoring. Initially the Olympus GIF-140 video endoscope was inserted into the mouth. Esophagus intubated without any difficulty. It was gradually advanced into the stomach and duodenum and carefully examined. The bulb and the second part of the duodenum appeared normal. The scope at this time was withdrawn to the stomach, adequately insufflated with air, and upon careful examination, mucosa of the antrum, body, cardia and the fundus appeared normal. there was 300 mL dark fluid aspirated from the stomach. No active bleeding noted. The scope was then withdrawn into the esophagus. The GE junction was located at 39 cm from the incisors. The esophagus appeared normal. There was a small isolated erosion noted at 30 cm from the incisors probably related to mucosal trauma but he had no bleeding or clot identified. The rest of esophagus appeared normal and the patient tolerated the procedure well. IMPRESSION: 1. No active bleeding noted . 2. There was a superficial erosion at 30 cm from the incisors possibly related to scope trauma but no clots or active bleeding noted. . RECOMMENDATIONS: The findings of this examination were discussed with nursing staff. At this time anticoagulation can be restarted. Monitor CBC daily. We'll discuss the findings with Dr. Larsen..
[2021-07-01] MEDS: SODIUM CHLORIDE 0.9% 1,000 ML IV SCH (18:50)
[2021-07-01] MEDS: DOFETILIDE 125 MCG CAP PO SCH (19:56)
[2021-07-01] MEDS: MAGNESIUM OXIDE 400 MG TAB PO SCH (19:56)
[2021-07-01] MEDS ORDERED: GABAPENTIN 100 MG CAP PO PRN (20:30)
[2021-07-01 20:58] LABS: Glucose,Whole Blood 102 mg/dL (75-99)
[2021-07-01] MEDS: TOPIRAMATE 100 MG TAB PO SCH (20:59)
[2021-07-01] MEDS: INSULIN ASPART (NovoLOG) 100 UNIT/ML VIAL SQ SCH (20:59)
[2021-07-01] MEDS ORDERED: ATORVASTATIN 20 MG TAB PO SCH (21:00)
[2021-07-01] MEDS ORDERED: RIVAROXABAN 20 MG TAB PO SCH (21:00)
[2021-07-02 03:42] LABS: Calcium 8.3 mg/dL (8.4-10.2); Potassium 3.8 mmol/L (3.5-5.1)
[2021-07-02] MEDS ORDERED: Potassium Replacement Protocol 1 EACH MISC MISCELLANE PRN (03:54)
[2021-07-02] MEDS ORDERED: POTASSIUM CHLORIDE ER 20 MEQ TAB.ER PO SCH (04:00)
[2021-07-02] MEDS: SODIUM CHLORIDE 0.9% 1,000 ML IV SCH (04:44)
[2021-07-02 06:25] LABS: HCT 43.8 % (39.0-53.0); HGB 13.7 gm/dL (13.0-17.5); Hypochromasia Moderate; MCH 31.7 pg (25.0-35.0); MCHC 31.3 g/dL (31.0-37.0); MCV 101.4 fL (80.0-100.0); Macrocytosis Slight; Mean Platelet Volume 7.6; Platelet Count 163 k/uL (150-450); RBC 4.32 m/uL (4.30-5.90); RDW 13.7 % (11.5-15.5); WBC 11.5 k/uL (3.8-10.6)
[2021-07-02] MEDS: INSULIN ASPART (NovoLOG) 100 UNIT/ML VIAL SQ SCH ×2 (06:37→11:39)
[2021-07-02 06:42] LABS: Glucose,Whole Blood 94 mg/dL (75-99)
--- NOTE | 2021-07-02 08:11 | P.DS ---
Providers Date of admission: 07/01/21 08:16 The patient is a 71-year-old male with a history of persistent atrial fibrillation, coronary artery disease and cardiomyopathy. He underwent ablation by Dr. Larsen, because of esophageal bleeding postprocedure he remained intubated, underwent upper endoscopy yesterday by Dr. Heller, had no active ble eding. He was extubated. He continues to be in sinus mechanism. Hemodynamically stable. He denies any chest discomfort, dizziness or palpitations. He started taking oral intake without any difficulty swallowing. He'll be discharged home today on Lipitor 20 mg daily, Plavix 75 mg daily, dofetilide 125 twice a day, metoprolol succinate 100 mg daily, insulin, Xarelto 20 mg daily His blood pressure is 143/87 with a heart rate in the 80s Lungs clear Heart regular rate and rhythm, S1-S2 no rub, plus systolic murmur at the base Abdomen: Soft obese nontender Extremities: Trace edema Lab: Hemoglobin 13.7, BUN 17, creatinine 1.1 Discharge diagnosis: Atrial fibrillation, post ablation. 2. Esophageal irritation, stable 3. Cardiomyopathy, stable 4. History of CAD 5. History of diabetes Plan: The patient will be discharged home today to be followed as an outpatient on the present medical regimen. His left ventricle systolic function will be followed closely. Attending physician: Demar Larsen Consults: 06/30/21 15:25 Consult Physician Routine Consulting Provider: Acacia Heller Consult Reason/Comments: esoph bleed post deflection Do you want consulting provider notified?: Yes 06/30/21 15:50 Consult Physician Urgent Consulting Provider: Darrius Vo Consult Reason/Comments: vent management Do you want consulting provider notified?: Yes 07/01/21 20:16 Consult Physician Routine Consulting Provider: Wali Marquez Consult Reason/Comments: Home medication management Do you want consulting provider notified?: Yes Primary care physician: [facility] Plan - Discharge Summary Discharge Rx Participant: Yes New Discharge Prescriptions: No Action Rivaroxaban [Xarelto] 20 mg PO HS Topiramate 150 mg PO BID metFORMIN HCL [Glucophage] 850 mg PO BID Clopidogrel [Plavix] 75 mg PO DAILY Omeprazole 20 mg PO DAILY #30 cap Cholecalciferol (Vitamin D3) [Vitamin D3] 50 mcg PO HS lisinopriL [Zestril] 20 mg PO BID Ferrous Sulfate [Iron (65 MG Elemental)] 325 mg PO HS Ascorbic Acid [Vitamin C] 500 mg PO HS Acetaminophen [Tylenol Extra Strength] 1,000 mg PO BID Multivit-Min/FA/Lycopen/Lutein [Centrum Silver Tablet] 1 tab PO DAILY Nitroglycerin Sl Tabs [Nitrostat] 0.4 mg SUBLINGUAL Q5M PRN PRN Reason: Chest Pain Atorvastatin [Lipitor] 20 mg PO HS Spironolactone 50 mg PO DAILY #90 tablet Metoprolol Succinate (ER) [Toprol XL] 100 mg PO DAILY #90 tab Magnesium Oxide 420 mg PO BID Gabapentin [Neurontin] 100 mg PO BID PRN PRN Reason: Moderate Pain Cyclobenzaprine [Flexeril] 10 mg PO DAILY PRN PRN Reason: Muscle Spasm Dofetilide [Tikosyn] 125 mcg PO BID Discharge Medication List Rivaroxaban [Xarelto] 20 mg PO HS 07/09/14 [History] Topiramate 150 mg PO BID 07/09/14 [History] metFORMIN HCL [Glucophage] 850 mg PO BID 07/09/14 [History] Clopidogrel [Plavix] 75 mg PO DAILY 05/13/16 [History] Omeprazole 20 mg PO DAILY #30 cap 05/17/16 [Rx] Acetaminophen [Tylenol Extra Strength] 1,000 mg PO BID 04/15/17 [History] Ascorbic Acid [Vitamin C] 500 mg PO HS 04/15/17 [History] Cholecalciferol (Vitamin D3) [Vitamin D3] 50 mcg PO HS 04/15/17 [History] Ferrous Sulfate [Iron (65 MG Elemental)] 325 mg PO HS 04/15/17 [History] lisinopriL [Zestril] 20 mg PO BID 04/15/17 [History] Multivit-Min/FA/Lycopen/Lutein [Centrum Silver Tablet] 1 tab PO DAILY 05/11/17 [History] Nitroglycerin Sl Tabs [Nitrostat] 0.4 mg SUBLINGUAL Q5M PRN 03/22/18 [History] Atorvastatin [Lipitor] 20 mg PO HS 01/29/19 [History] Metoprolol Succinate (ER) [Toprol XL] 100 mg PO DAILY #90 tab 02/02/19 [Rx] Spironolactone 50 mg PO DAILY #90 tablet 02/02/19 [Rx] Magnesium Oxide 420 mg PO BID 08/25/20 [History] Dofetilide [Tikosyn] 125 mcg PO BID 06/26/21 [History] Cyclobenzaprine [Flexeril] 10 mg PO DAILY PRN 06/30/21 [History] Gabapentin [Neurontin] 100 mg PO BID PRN 06/30/21 [History]
[2021-07-02] MEDS: NOREPINEPHRINE 4 MG in SODIUM CHLORIDE 0.9% 250 ML IV SCH (08:46)
[2021-07-02] MEDS: PANTOPRAZOLE 40 MG/10 ML VIAL IVP SCH (08:53)
[2021-07-02] MEDS: DOFETILIDE 125 MCG CAP PO SCH (08:54)
[2021-07-02] MEDS: MAGNESIUM OXIDE 400 MG TAB PO SCH (08:54)
[2021-07-02] MEDS: TOPIRAMATE 100 MG TAB PO SCH (08:55)
[2021-07-02] MEDS ORDERED: CLOPIDOGREL 75 MG TAB PO SCH (09:00)
[2021-07-02] MEDS ORDERED: METOPROLOL SUCCINATE (ER) 100 MG TAB.ER.24H PO SCH (09:00)
--- NOTE | 2021-07-02 10:15 | P.CONS ---
History of Present Illness - History of Present Illness This is a pleasant 71 years old male with past medical history of atrial fibr illation, on Xarelto, hypertension, hyperlipidemia, coronary artery disease, CVA/TIA, seizure disorder not on medication, obstructive sleep apnea, memory impairment, nonischemic cardiomyopathy Patient was admitted on 06/30 for atrial tachycardia and atrial fibrillation despite A. fib ablation. He was admitted with plan for EP study and atrial tachycardia mapping. Postoperatively he does not still be was informed esophagus and patient kept intubated to protect the airway. GI team evaluated the patient, he underwent EGD yesterday showed no active bleeding and there was superficial erosion at 30 cm from the incisors probably related to scope trauma but no clots or active bleeding. Currently the Xarelto and plavix are resumed Patient today is fully awake and oriented to time, place and person, is eating well, is working with no difficulty. Patient states he has this slow interrupting speech since he had a stroke 5-6 years ago. This is his baseline. No other neurological complaints. He has some constipation but he declines laxative, he is passing gases and denies abdominal pain. No urinary complaints. He is eager to go home. And asked the patient he needs to follow up with PCP in one week he told me he has a close appointment with his doctor at the office so. Patient currently hemodynamically stable. WBC 11.5, hemoglobin 13.7, BMP is unremarkable. Review of Systems CONSTITUTIONAL: No fever, no malaise, no fatigue. HEENT: No recent visual problems or hearing problems. Denied any sore throat. CARDIOVASCULAR: No orthopnea, PND, no palpitations, no syncope. PULMONARY: No shortness of breath, no cough, no hemoptysis. GASTROINTESTINAL: No diarrhea, no nausea, no vomiting, no abdominal pain. Normoactive bowel sounds. NEUROLOGICAL: No headaches, no weakness, no numbness. HEMATOLOGICAL: Denies any bleeding or petechiae. GENITOURINARY: Denies any burning micturition, frequency, or urgency. MUSCULOSKELETAL/RHEUMATOLOGICAL: Denies any joint pain, swelling, or any muscle pain. ENDOCRINE: Denies any polyuria or polydipsia. Past Medical History Past Medical History: Atrial Fibrillation, Coronary Artery Disease (CAD), Heart Failure, CVA/TIA, Diabetes Mellitus, Hearing Disorder / Deafness, Hyperlipidemia, Hypertension, Memory Impairment, Osteoarthritis (OA), Pneumonia, Seizure Disorder, Sleep Apnea/CPAP/BIPAP Additional Past Medical History / Comment(s): CVA 12/2012. Hearing aids. Heel spurs. Short term memory loss, hx fall w/ seizure; Last seizure about 2010 est; hx slight tremors. ED, problems emptying bladder on occ. Has tears in bilat meniscus. Uses CPAP. Some difficulty with speech since CVA. See Dr. Giron's H & P. History of Any Multi-Drug Resistant Organisms: None Reported Past Surgical History: Heart Catheterization, Heart Catheterization With Stent, Orthopedic Surgery Additional Past Surgical History / Comment(s): Colonoscopy w/ exc 1 benign polyp, Rhinoplasty, Torn Meniscus Bilat Knees - RT X2, Lt X1 w/ scopes, LT Shoulder AC Joint. Cardioversion, PRIYANKA. Past Anesthesia/Blood Transfusion Reactions: No Reported Reaction Additional Past Anesthesia/Blood Transfusion Reaction / Comm: Claustrophobia Date of Last Stent Placement:: 07-10-14 Past Psychological History: No Psychological Hx Reported Additional Psychological History / Comment(s): HAS HEARING LOSS, APHASIA Smoking Status: Former smoker Past Alcohol Use History: None Reported Additional Past Alcohol Use History / Comment(s): Smoking at age 14, quit 1976, Smoked 3 PPD. Past Drug Use History: None Reported - Past Family History Father Additional Family Medical History / Comment(s): EMPHYSEMA Mother Family Medical History: No Reported History Additional Family Medical History / Comment(s): HEAVY SMOKER, HEART STENTS. Medications and Allergies Home Medications Medication Instructions Recorded Confirmed Type Rivaroxaban [Xarelto] 20 mg PO HS 07/09/14 06/30/21 History Topiramate 150 mg PO BID 07/09/14 06/30/21 History metFORMIN HCL [Glucophage] 850 mg PO BID 07/09/14 06/30/21 History Clopidogrel [Plavix] 75 mg PO DAILY 05/13/16 06/30/21 History Omeprazole 20 mg PO DAILY #30 cap 05/17/16 06/30/21 Rx Acetaminophen [Tylenol Extra 1,000 mg PO BID 04/15/17 06/30/21 History Strength] Ascorbic Acid [Vitamin C] 500 mg PO HS 04/15/17 06/30/21 History Cholecalciferol (Vitamin D3) 50 mcg PO HS 04/15/17 06/30/21 History [Vitamin D3] Ferrous Sulfate [Iron (65 MG 325 mg PO HS 04/15/17 06/30/21 History Elemental)] lisinopriL [Zestril] 20 mg PO BID 04/15/17 06/30/21 History Multivit-Min/FA/Lycopen/Lutein 1 tab PO DAILY 05/11/17 06/30/21 History [Centrum Silver Tablet] Nitroglycerin Sl Tabs [Nitrostat] 0.4 mg SUBLINGUAL Q5M PRN 03/22/18 06/26/21 History Atorvastatin [Lipitor] 20 mg PO HS 01/29/19 06/30/21 History Metoprolol Succinate (ER) [Toprol 100 mg PO DAILY #90 tab 02/02/19 06/30/21 Rx XL] Spironolactone 50 mg PO DAILY #90 tablet 02/02/19 06/30/21 Rx Magnesium Oxide 420 mg PO BID 08/25/20 06/30/21 History Dofetilide [Tikosyn] 125 mcg PO BID 06/26/21 06/30/21 History Cyclobenzaprine [Flexeril] 10 mg PO DAILY PRN 06/30/21 06/30/21 History Gabapentin [Neurontin] 100 mg PO BID PRN 06/30/21 06/30/21 History Allergies Allergy/AdvReac Type Severity Reaction Status Date / Time No Known Allergies Allergy Verified 06/26/21 11:50 Physical Exam Vitals: Vital Signs Temp Pulse Resp BP Pulse Ox 07/02/21 07:00 89 12 143/87 95 07/02/21 06:00 83 13 141/86 96 07/02/21 05:00 89 19 148/81 95 07/02/21 04:00 98.1 F 81 16 141/77 98 07/02/21 03:00 83 17 121/71 97 07/02/21 02:00 72 16 117/71 99 07/02/21 01:00 75 16 119/72 98 07/02/21 00:00 97.9 F 72 17 126/65 99 07/01/21 23:00 73 21 114/78 99 07/01/21 22:00 84 16 100/76 99 07/01/21 21:00 86 20 115/90 99 07/01/21 20:00 98.7 F 85 12 124/70 98 07/01/21 19:00 77 16 122/63 95 07/01/21 18:00 76 13 113/68 98 07/01/21 17:00 78 16 124/68 96 07/01/21 16:00 99.2 F 74 20 119/68 98 07/01/21 15:00 81 15 128/72 98 07/01/21 14:30 82 21 125/77 97 07/01/21 14:15 82 21 131/76 96 07/01/21 14:00 79 9 L 130/70 95 07/01/21 13:45 80 9 L 128/78 95 07/01/21 13:30 82 22 121/74 97 07/01/21 13:15 75 18 115/67 98 07/01/21 13:00 68 16 115/63 99 07/01/21 12:45 68 19 109/64 99 07/01/21 12:30 77 17 113/69 98 07/01/21 12:15 70 15 117/67 98 07/01/21 12:00 99.6 F 73 17 109/67 98 07/01/21 11:45 72 14 99/56 98 07/01/21 11:30 69 15 92/58 96 07/01/21 11:15 71 15 91/56 95 07/01/21 11:00 74 17 95/58 96 07/01/21 10:45 71 14 99/61 96 07/01/21 10:30 71 15 96/59 97 07/01/21 10:15 65 14 100/58 98 07/01/21 10:00 70 20 93/59 97 07/01/21 09:45 68 16 100/63 99 07/01/21 09:30 66 14 89/49 97 07/01/21 09:15 70 15 88/56 96 07/01/21 09:00 69 16 83/54 96 07/01/21 08:45 71 18 88/54 96 07/01/21 08:30 70 17 84/53 96 07/01/21 08:15 72 16 81/52 96 07/01/21 08:00 98.5 F 75 17 84/53 96 07/01/21 07:45 75 14 84/52 96 07/01/21 07:30 76 14 101/58 96 07/01/21 07:15 75 14 101/61 98 Intake and Output 07/01/21 07/02/21 07/02/21 22:59 06:59 14:59 Intake Total 280 80 10 Output Total 825 495 100 Balance -035 -415 -90 Intake: IV 280 80 10 Sodium Chloride 0.9% 1, 280 80 10 000 ml @ 10 mls/hr IV . Q24H [facility] Rx#:[id number] Output: Urine 825 495 100 Other: Voiding Method Indwelling Catheter Indwelling Catheter GENERAL: The patient is alert and oriented x3, not in any acute distress. Well developed, well nourished. HEENT: Pupils are round and equally reacting to light. EOMI. No scleral icterus. No conjunctival pallor. Normocephalic, atraumatic. No pharyngeal erythema. No thyromegaly. CARDIOVASCULAR: S1 and S2 present. No murmurs, rubs, or gallops. PULMONARY: Chest is clear to auscultation, no wheezing or crackles. ABDOMEN: Soft, nontender, nondistended, normoactive bowel sounds. No palpable organomegaly. MUSCULOSKELETAL: No joint swelling or deformity. EXTREMITIES: No cyanosis, clubbing, or pedal edema. NEUROLOGICAL: Gross neurological examination did not reveal any focal deficits. Chronic speech difficulties from an old stroke SKIN: No rashes. No petechiae Results CBC & Chem 7: 07/02/21 05:37 07/02/21 02:46 Labs: Abnormal Lab Results - Last 24 Hours (Table) 07/01/21 07/02/21 07/02/21 Range/Units 20:56 02:46 05:37 WBC 11.5 H (3.8-10.6) k/uL MCV 101.4 H (80.0-100.0) fL Chloride 111 H (98-107) mmol/L Glucose 112 H (74-99) mg/dL POC Glucose (mg/dL) 102 H (75-99) mg/dL Calcium 8.3 L (8.4-10.2) mg/dL Assessment and Plan Assessment: A. fib with RVR, present on admission. Status post ablation. Already on Xarelto at home. Currently rate is improved Postprocedure mild esophageal bleeding, most likely secondary to superficial trauma which is stopped now. Patient is asymptomatic and tolerates while and hemodynamically and hemoglobin are stable Hypertension Hyperlipidemia History of CVA/TIA non-ischemic cardiomyopathy History of CVA History of coronary artery disease status post stenting History of seizure disorder not on medication History of obstructive sleep apnea on CPAP History of memory impairment Plan: A pleasant 71 years old male who presents with A. fib and RVR. Status post ablation. With esophageal bleeding Continue with IV Protonix, Patient is currently on Plavix but Xarelto is presumed as well Blood pressure and hemoglobin is stable Several consultants on the case including cardiology primary team, pulmonary and GI services Labs and medication were reviewed.. Continue same treatment. Continue with symptomatic treatment. Resume home medication. Monitor lytes and vitals. DVT and GI prophylaxis. Further recommendations depends on the clinical course of the patient DVT prophylaxis: Xarelto GI Prophylaxis: Ppi Patient looks medically stable
--- NOTE | 2021-07-02 11:33 | P.PN ---
Subjective Progress Note Date: 07/02/21 Principal diagnosis: Chronic atrial fibrillation, status post ablation This is a 71-year-old male patient with a known history of atrial fibrillation and cardiomyopathy, coronary artery disease with previous stenting of the LAD in 2014. Patient had persistent and symptomatic atrial fibrillation, his most recent transesophageal echocardiogram from August 2020 showed evidence of global hypokinesis of the left ventricle, dilated left atrium, [id number] mitral with mild tricuspid regurgitation, stretched PFO with [id number] shunting and no evidence of reversal of flow. Patient is currently on dofetilide, Toprol-XL, and Xarelto for anticoagulation. On 06/30/2021 patient came in for an elective atrial fibrillation ablation. The pulmonary veins were isolated at the antral level, the patient underwent antral ablation anteriorly and posteriorly. There was some difficulty with passing of the esophageal temperature probe and the endoscope was then inserted. However upon removal though some wheezing, and some oozing from the esophagus noted. Patient was intubated to avoid aspiration and for protection of the airway and lungs, and patient was sedated and admitted to the intensive care unit. His morning she seen in intensive care unit, remains sedated and intubated on assist control mode of ventilation with a rate of 14, tidal labs 500, FiO2 45% and PEEP of 5, this morning's blood gas shows pO2 of 85, pCO2 40, pH of 7.34. Hemodynamically patient is in sinus mechanism with a rate of 68, blood pressures are with marginal 84/53, he is requiring norepinephrine at 0.02 mics per kilo per minute, point normal saline at a tendon per hour, and improving and is a 50 mics per kilo per minute. Patient has not required blood transfusions. His admission hemoglobin was 15.7 on 06/30/2021, this morning is 14.6, white count is 13.7, platelet count is 152. His sodium is 141, potassium is 4.9, chloride is 114, CO2 is 18, BUN is 17, creatinine is 1.09. Blood gas shows pO2 of 85, pCO2 40, pH of 7.34, this was done on the above-mentioned ventilator settings and FiO2 of 45%. Xarelto remains on hold, patient is on IV Protonix 40 mg daily, is on minimal IV fluids to keep open, he is kept nothing by mouth, GI service consultation has been requested and patient is supposed to have a EGD today. Today's chest x-ray showing no sizable right pleural effusion, ET tube 4.4 cm above the madhu. Balderrama catheter is in place, and urine output is in the order of 25-45 ML per hour. Patient was reevaluated today on 06/28/2021, remains in the ICU, he was extubated yesterday uneventfully, GI evaluation is basically unremarkable, no evidence of esophageal injury or bleeding. Patient is being considered for discharge planning today. Pulmonary-asif he is not in any distress. CBC is normal WBC count is 11.5 hemoglobin is 13.7 and electrolytes are normal renal profile is normal Objective - Vital Signs Vital signs: Vital Signs Temp 98.7 F 07/02/21 08:00 Pulse 72 07/02/21 11:00 Resp 11 L 07/02/21 11:00 BP 130/81 07/02/21 11:00 Pulse Ox 92 L 07/02/21 11:00 Intake & Output 07/01/21 07/02/21 07/02/21 18:59 06:59 18:59 Intake Total 721.845 160 30 Output Total 990 820 355 Balance -268.155 -660 -325 Weight 137.1 kg Intake: IV 495 160 30 Sodium Chloride 0.9% 1, 470 160 30 000 ml @ 10 mls/hr IV . Q24H [facility] Rx#:[id number] Intake, IV Titration 226.845 Amount Norepinephrine 4 mg In 50.146 Sodium Chloride 0.9% 250 ml @ 0.05 MCG/KG/MIN 26. 118 mls/hr IV .Q9H44M [facility] Rx#:[id number] Sodium Chloride 0.9% 1, 10 000 ml @ 10 mls/hr IV . Q24H [facility] Rx#:[id number] propofoL 1,000 mg In 166.699 Empty Bag 1 bag @ 15 MCG/ KG/MIN 12.339 mls/hr IV . Q8H7M [facility] Rx#:[id number] Output: Urine 990 820 355 Other: Voiding Method Indwelling Catheter Indwelling Catheter - Exam Physical Exam: Revealed a 71-year-old white male in no distress. HEENT:[Neck is supple.] [No neck masses.] [No thyromegaly.] [No JVD.] Chest: [Clear throughout, no crackles, no rhonchi, no wheezes.] Cardiac Exam: [Normal S1 and S2, no S3 gallop, no murmur.] Abdomen: [Soft, nontender, no megaly, no rebound, no guarding, normal bowel sounds.] Extremities: [No clubbing, no edema, no cyanosis.] Neurological Exam: [No focal neurologic deficit.] Psychiatric: Normal mood affect and normal mental status examination. Skin: No rashes. - Labs CBC & Chem 7: 07/02/21 05:37 07/02/21 02:46 Labs: Abnormal Lab Results - Last 24 Hours (Table) 07/01/21 07/02/21 07/02/21 Range/Units 20:56 02:46 05:37 WBC 11.5 H (3.8-10.6) k/uL MCV 101.4 H (80.0-100.0) fL Chloride 111 H (98-107) mmol/L Glucose 112 H (74-99) mg/dL POC Glucose (mg/dL) 102 H (75-99) mg/dL Calcium 8.3 L (8.4-10.2) mg/dL Assessment and Plan Assessment: Impression: Status post ablation for atrial fibrillation, patient was intubated for protection of airways on 06/30 and he was extubated yesterday on 07/01. Upper GI bleeding post-ablation, felt to be most likely traumatic from endoscopic evaluation/endoscope, felt to be nonsignificant, potential complication unexpected. Please refer to full GI evaluation and recommendations regarding this issue History of coronary artery disease History of CVA Type 2 diabetes History of obstructive sleep apnea syndrome Benign essential hypertension Dyslipidemia Recommendation: Patient was extubated yesterday uneventfully and he tolerated the extubation well., I saw mostly because the patient was on mechanical ventilation post ablation. Agree with discharge planning today. Patient was cleared for discharge by GI and by cardiology. Time with Patient: Less than 30
[2021-07-02 11:40] LABS: Glucose,Whole Blood 105 mg/dL (75-99)
[2021-07-02 13:12] VITALS: TEMP 98
[2021-07-02 16:44] VITALS: BP 125/64; PULSE 72; RESP 16
[2021-07-02] MEDS ORDERED: ASCORBIC ACID 500 MG TAB PO SCH (21:00)
== END 2021-07-02 16:00 | disposition home or self-care (01) | DRG 982 ==
LOC: CATHEP 08:14 → 2SICU 14:35 → CATHEP 07-01 07:36 → OBSVTOIN 07-01 08:16 → 2SICU 07-01 08:16
PROVIDERS: ADMIT Internal Medicine Clinical Cardiac Electrophysiology; ATTEND Internal Medicine Clinical Cardiac Electrophysiology
PROC: 5A1935Z Respiratory Ventilation, Less than 24 Consecutive Hours (ICD-10-PCS; 2021-06-30)
PROC: 0BH17EZ Insertion of Endotracheal Airway into Trachea, Via Natural or Artificial Opening (ICD-10-PCS; 2021-06-30)
PROC: 02K83ZZ Map Conduction Mechanism, Percutaneous Approach (ICD-10-PCS; 2021-07-01)
PROC: 4A0234Z Measurement of Cardiac Electrical Activity, Percutaneous Approach (ICD-10-PCS; 2021-07-01)
PROC: 0DJ08ZZ Inspection of Upper Intestinal Tract, Via Natural or Artificial Opening Endoscopic (ICD-10-PCS; 2021-07-01)
PROC: 02583ZZ Destruction of Conduction Mechanism, Percutaneous Approach (ICD-10-PCS; principal; 2021-07-01 07:30)
DX: J95.831 Postprocedural hemorrhage of a respiratory system organ or structure following other procedure (principal); I48.19 Other persistent atrial fibrillation; R47.01 Aphasia; I42.8 Other cardiomyopathies; I47.1 Supraventricular tachycardia; K22.89 Other specified disease of esophagus; I48.0 Paroxysmal atrial fibrillation; E11.9 Type 2 diabetes mellitus without complications; E78.5 Hyperlipidemia, unspecified; F40.240 Claustrophobia; G40.909 Epilepsy, unspecified, not intractable, without status epilepticus; Z20.822 Contact with and (suspected) exposure to COVID-19; H91.90 Unspecified hearing loss, unspecified ear; I25.10 Atherosclerotic heart disease of native coronary artery without angina pectoris; G47.33 Obstructive sleep apnea (adult) (pediatric); I50.9 Heart failure, unspecified; I11.0 Hypertensive heart disease with heart failure; K59.00 Constipation, unspecified; Z79.01 Long term (current) use of anticoagulants; Z79.02 Long term (current) use of antithrombotics/antiplatelets; Z79.84 Long term (current) use of oral hypoglycemic drugs; Z79.899 Other long term (current) drug therapy; Z82.5 Family history of asthma and other chronic lower respiratory diseases; Z86.73 Personal history of transient ischemic attack (TIA), and cerebral infarction without residual deficits; Z87.891 Personal history of nicotine dependence; Z95.5 Presence of coronary angioplasty implant and graft; Y83.8 Other surgical procedures as the cause of abnormal reaction of the patient, or of later complication, without mention of misadventure at the time of the procedure
CPT/HCPCS: 36600; 43235; 71045; 80048; 82805; 85025; 85027; 87635; 93462; 93653; 93662; 94003

== ENCOUNTER 2024-08-07 06:04 | Day surgery (SDC) | payer MEDICARE, OTHER ==
[2024-08-07 06:39] VITALS: TEMP 96
[2024-08-07] MEDS: SODIUM CHLORIDE 0.9% 500 ML 500 ML IV ONE (06:50)
[2024-08-07 06:58] LABS: Glucose,Whole Blood 131 mg/dL (70-110)
[2024-08-07] MEDS: BENZOCAINE SPRAY 1 EACH TOPICAL STA (07:12)
[2024-08-07] MEDS ORDERED: LIDOCAINE 2% (PF) 20 MG/ML 5 ML VIAL ONE (07:15)
[2024-08-07] MEDS ORDERED: PROPOFOL 10 MG/ML 20 ML VIAL IV ONE (07:15)
[2024-08-07] MEDS ORDERED: GABAPENTIN 100 MG CAP PO PRN (07:26)
[2024-08-07 07:30] LABS: African American GFR (CKD) 83 (>60 ml/min/1.73 sqM); Anion Gap 8 mmol/L; Blood Urea Nitrogen 14 mg/dL (9-20); Calcium 9.1 mg/dL (8.4-10.2); Carbon Dioxide 22 mmol/L (22-30); Chloride 109 mmol/L (98-107); Glucose 134 mg/dL (74-99); Non-African American GFR(CKD) 72 (>60 ml/min/1.73 sqM); Potassium 4.2 mmol/L (3.5-5.1); Sodium 139 mmol/L (137-145)
[2024-08-07] MEDS ORDERED: SODIUM CHLORIDE 0.9% 1,000 ML IV SCH (07:30)
--- NOTE | 2024-08-07 07:31 | P.PCN ---
Date of Procedure: 08/07/24 Description of Procedure: Indication: Atrial tachycardia Procedure Description: After explaining the procedure to the patient, it's risk and complications, blood pressure, heart rate and O2 saturation were monitored. The throat was sprayed with Cetacaine. Patient received sedation per anesthesia department. The probe was introduced into the esophagus without difficulty. Images were obtained. Following that, the probe was removed. There was no immediate complication. Findings: Left atrial size is dilated, left atrial appendage is normal. Moderate to severe global hypokinesis was noted with an ejection fraction estimated at 35%. The aortic valve is a tricuspid valve with mild fibrocalcific changes. Mitral annular calcification was noted. The tricuspid valve appears to be normal. Descending thoracic aorta appears to be normal. No pericardial effusion was noted. Contrast bubble study revealed delayed minimal shunting through a patent foramen ovale. Doppler: Pulse wave and color Doppler were obtained, and revealed mild mitral and tricuspid regurgitation with [id number] shunting through a patent foramen ovale. Conclusion: 1. Dilated left atrium with normal appearance of the left atrial appendage 2. Moderate to severe impairment of the left ventricular systolic function 3. Mild mitral and tricuspid regurgitation 4. Patent daniels ovale with [id number] shunting and minimal late reversal with contrast bubble study 5. No pericardial effusion Cardioversion: After obtaining PRIYANKA and sedated state a synchronized biphasic cardioversion using 200 J was performed with confucianist of sinus mechanism, there was no immediate complications.
[2024-08-07 08:46] VITALS: RESP 16
[2024-08-07] MEDS: IV FLUID CONTINUATION 1,000 ML IV ONE (08:59)
[2024-08-07] MEDS ORDERED: metFORMIN 850 MG TAB PO SCH (09:00)
[2024-08-07] MEDS ORDERED: RIVAROXABAN 20 MG TAB PO SCH (09:00)
[2024-08-07] MEDS ORDERED: NON FORMULARY DRUG (Spironolactone [Spironolactone] 50 MG Tablet) PO SCH (09:00)
[2024-08-07] MEDS ORDERED: MAGNESIUM OXIDE 400 MG TAB PO SCH (09:00)
[2024-08-07] MEDS ORDERED: DOFETILIDE 125 MCG CAP PO SCH (09:00)
[2024-08-07] MEDS ORDERED: NON FORMULARY DRUG (Omeprazole [Omeprazole] 20 MG Capsule.Dr) PO SCH (09:00)
[2024-08-07 09:47] VITALS: BP 131/81; PULSE 60
[2024-08-07] MEDS ORDERED: lisinopriL 20 MG TAB PO SCH (21:00)
[2024-08-07] MEDS ORDERED: ATORVASTATIN 20 MG TAB PO SCH (21:00)
[2024-08-08] MEDS ORDERED: METOPROLOL SUCCINATE (ER) 100 MG TAB.ER.24H PO SCH (09:00)
[2024-08-08] MEDS ORDERED: CLOPIDOGREL 75 MG TAB PO SCH (09:00)
== END 2024-08-07 09:55 | disposition home or self-care (01) ==
LOC: OR 06:04
PROVIDERS: ATTEND Internal Medicine Interventional Cardiology
DX: I25.10 Atherosclerotic heart disease of native coronary artery without angina pectoris (principal); I48.11 Longstanding persistent atrial fibrillation; I25.5 Ischemic cardiomyopathy; I47.19 Other supraventricular tachycardia; I11.0 Hypertensive heart disease with heart failure; I50.9 Heart failure, unspecified; E11.9 Type 2 diabetes mellitus without complications; E78.2 Mixed hyperlipidemia; G47.33 Obstructive sleep apnea (adult) (pediatric); Z87.891 Personal history of nicotine dependence; Z99.89 Dependence on other enabling machines and devices; Z86.73 Personal history of transient ischemic attack (TIA), and cerebral infarction without residual deficits; Z86.69 Personal history of other diseases of the nervous system and sense organs; Z79.02 Long term (current) use of antithrombotics/antiplatelets; Z79.84 Long term (current) use of oral hypoglycemic drugs; Z79.899 Other long term (current) drug therapy
CPT/HCPCS: 93312; 93320; 93325; 92960; 80048; J2704; J2003